=== PATIENT | male | born 1940 | race Caucasian/White ===

== ENCOUNTER → 2016-10-17 | Outpatient (CLI) | payer OTHER ==
[~2016-10-17] MED LIST: ASPI81TA82 PO; ATOR40TA PO; CARV6.252 PO; CO Q100C9 PO; FENO43CA PO; HYZA50TA2 PO; PLAV75TA PO; PROT40TA PO; TAB-TAB PO
--- NOTE | 2016-10-21 12:49 | RSPPFT ---
DATE OF PROCEDURE: 10/17/16 COMMENTS: VOLUMES DYNAMIC: FVC and FEV1 normal. STATIC: TLC, VTG and RV normal. FLOWS: FEV1% mildly reduced; FEF 25-75 moderately reduced. DIFFUSION: Severely reduced. FLOW VOLUME LOOP: Terminal airflow obstruction. IMPRESSION: Mild obstructive ventilatory defect with no significant hyperinflation but with a severe reduction in diffusion. Airways resistance is normal. There is minimal change post-bromnchodilator.
== END ==
LOC: HRSP 10:26
PROVIDERS: ATTEND Internal Medicine
DX: J44.9 Chronic obstructive pulmonary disease, unspecified (principal)
CPT/HCPCS: 94060; 94620; 94726; 94729

== ENCOUNTER 2017-04-05 06:34 | Day surgery (SDC) | payer OTHER ==
[~2017-04-05] VITALS: Ht 175.3 cm; Wt 93.2 kg
[2017-04-05] MEDS ORDERED: SODIUM CHLOR 0.9% 1000 ML INJ 1,000 ML IV SCH (07:00)
[2017-04-05 07:05] VITALS: BP 155/86; PULSE 71; RESP 20; TEMP 98.4; O2SAT 94
[2017-04-05] MEDS ORDERED: ASPI81CH37 PO (07:44)
[2017-04-05] MEDS ORDERED: ATOR10TA15 PO (07:45)
[2017-04-05] MEDS ORDERED: AMLO10TA2 PO (07:46)
[2017-04-05] MEDS ORDERED: CARV12.52 PO (07:48)
[2017-04-05] MEDS ORDERED: MIDAZOLAM HCL 2 MG/2 ML VIAL ONE (07:48)
[2017-04-05] MEDS ORDERED: PLAV75TA29 PO (07:49)
[2017-04-05] MEDS ORDERED: LOSA100T3 PO (07:50)
[2017-04-05] MEDS ORDERED: FENO43CA PO (07:52)
[2017-04-05] MEDS ORDERED: LIDOCAINE HCL 1% 20 ML VIAL ONE (07:52)
[2017-04-05] MEDS ORDERED: SODIUM BICARBONATE 8.4% INJ 50 ML ONE (07:52)
[2017-04-05] MEDS ORDERED: UBID200C3 PO (07:53)
[2017-04-05] MEDS ORDERED: PANT40TA3 PO (07:54)
[2017-04-05] MEDS ORDERED: MULTTAB67 PO (07:55)
[2017-04-05] MEDS ORDERED: oxyCODONE/ACETAMINOPHEN 5 MG/325 MG TAB PO PRN (09:00)
[2017-04-05 09:13] VITALS: BP 158/75; PULSE 69; RESP 17; TEMP 98.7; O2SAT 94
--- NOTE | 2017-04-05 09:21 | RADRPT ---
EXAM DATE/TIME: 04/05/2017 09:07 [facility] COMPARISON: No previous studies available for comparison. INDICATIONS : Post lung bx MEDICAL HISTORY : None. SURGICAL HISTORY : None. ENCOUNTER: Initial ACUITY: 1 day PAIN SCORE: 0/10 LOCATION: Bilateral chest FINDINGS: There is no evidence of pneumothorax status post left lung biopsy. Left hilar mass and left upper lob e mass are unchanged. Scattered increased interstitial markings are noted consistent with COPD. The h eart is unremarkable. Degenerative changes are noted throughout the thoracic spine. CONCLUSION: No evidence of pneumothorax status post left lung biopsy. Rafiq Hernandez MD on April 05, 2017 at 9:17 Board Certified Radiologist. This report was verified electronically.
[2017-04-05 09:43] VITALS: BP 145/74; PULSE 57; RESP 18; O2SAT 95
[2017-04-05 10:13] VITALS: BP 161/72; PULSE 63; RESP 18; O2SAT 96
[2017-04-05 10:43] VITALS: BP 144/82; PULSE 82; RESP 17; O2SAT 97
[2017-04-05 11:13] VITALS: BP 143/68; PULSE 68; RESP 18
--- NOTE | 2017-04-05 11:32 | RADRPT ---
EXAM DATE/TIME: 04/05/2017 11:02 [facility] COMPARISON: CHEST EXPIRATION ONLY, April 05, 2017, 9:07. INDICATIONS : Pneumothorax. MEDICAL HISTORY : Chronic obstructive pulmonary disease. Pulmonary fibrosis SURGICAL HISTORY : None. ENCOUNTER: Subsequent ACUITY: 1 day PAIN SCORE: 0/10 LOCATION: Bilateral chest FINDINGS: There is no evidence of pneumothorax status post left lung biopsy. Left hilar mass and left upper lob e mass are unchanged. Scattered increased interstitial markings are noted consistent with COPD. The h eart is unremarkable. Degenerative changes are noted throughout the thoracic spine. CONCLUSION: No evidence of pneumothorax. Gus Carmona MD on April 05, 2017 at 11:30 Board Certified Radiologist. This report was verified electronically.
--- NOTE | 2017-04-05 13:14 | RADRPT ---
EXAM DATE/TIME: 04/05/2017 08:21 [facility] COMPARISON: No previous studies available for comparison. INDICATIONS : Left lung mass. SEDATION TIME: 30 minutes BIOPSY SITE: Left lung MEDICATION(S): 1.) 2 mg midazolam (Versed) IV 2.) 100 mcg fentanyl (Sublimaze) IV DEVICE(S): 1.) 20 gauge Temno core biopsy needle 11cm MEDICAL HISTORY : Hypertension. Chronic obstructive pulmonary disease. Cardiovascular disease. SURGICAL HISTORY : None. ENCOUNTER: Initial ACUITY: 1 day PAIN SCORE: 0/10 LOCATION: Left chest A total of two core specimen(s) were obtained and sent to the laboratory for pathologic evaluation. PROCEDURE: 1. CT guided lung biopsy. 2. Conscious sedation with continuous EKG and oximetry monitoring. Prior to the procedure informed consent was obtained. Any appropriate prior imaging studies were rev iewed. Using automated exposure control and adjustment of the mA and/or kV according to patient size, radiation dose was kept as low as reasonably achievable to obtain optimal diagnostic quality images. DICOM format image data is available electronically for review and comparison. The site was prepped in a sterile fashion. Full sterile technique was used, including cap, mask, roman rile gloves and gown and a large sterile sheet. Hand hygiene and 2% chlorhexidine and/or betadine/al cohol prep was utilized per protocol for cutaneous antisepsis. The skin and subcutaneous tissues wer e infiltrated with local anesthetic solution. With CT guidance the previously identified target was localized. Biopsy was performed using the presc ribed needle as above. Adequate hemostasis was obtained with compression at the puncture site. Follow-up CT scan reveals no pneumothorax. Conscious sedation was performed with the prescribed dosages and duration as above in the presence of an independent trained radiology nurse to assist in the monitoring of the patient. EKG and oximetry remained stable throughout the procedure. The patient tolerated the procedure well and there were no complications. The patient was sent to Radiology Outpatient Unit in stable condition. CONCLUSION: Uncomplicated CT guided biopsy. Rafiq Hernandez MD on April 05, 2017 at 13:11 Board Certified Radiologist. This report was verified electronically.
[2017-05-22] MEDS ORDERED: ZOLP10TA3 PO (10:27)
[2017-05-22] MEDS ORDERED: CHOL20005 PO (10:27)
[2017-05-22] MEDS ORDERED: FENO54TA PO (10:27)
[2017-05-22] MEDS ORDERED: ATOR1TAB18 PO (10:27)
[2017-05-22] MEDS ORDERED: ACETCAP PO (10:27)
[2017-05-22] MEDS ORDERED: FERR200T PO (10:27)
[2017-05-22] MEDS ORDERED: CO Q200C PO (10:27)
== END 2017-04-05 12:00 | disposition home or self-care (01) ==
LOC: HRIP 06:34 → HRAD 06:34
PROVIDERS: ATTEND Family Medicine
DX: R91.8 Other nonspecific abnormal finding of lung field (principal); I10 Essential (primary) hypertension; J44.9 Chronic obstructive pulmonary disease, unspecified; I25.10 Atherosclerotic heart disease of native coronary artery without angina pectoris; I73.9 Peripheral vascular disease, unspecified; E78.00 Pure hypercholesterolemia, unspecified; Z79.01 Long term (current) use of anticoagulants; Z79.82 Long term (current) use of aspirin; Z79.899 Other long term (current) drug therapy
CPT/HCPCS: 32405; 71010; 77012; 88305; J2250; J3010; J7030

== ENCOUNTER 2017-05-23 07:30 | Inpatient (IN) | payer OTHER, MEDICARE ==
[~2017-05-23] VITALS: Ht 177.8 cm; Wt 94.0 kg
[~2017-05-23 07:30] MED LIST changes: +ACETCAP PO; +AMLO10TA2 PO; +ASPI81CH37 PO; -ASPI81TA82 PO; +ATOR1TAB18 PO; -ATOR40TA PO; +CARV12.52 PO; -CARV6.252 PO; +CHOL20005 PO; -CO Q100C9 PO; +CO Q200C PO; -FENO43CA PO; +FENO54TA PO; +FERR200T PO; -HYZA50TA2 PO; +LOSA100T3 PO; +MULTTAB67 PO; +PANT40TA3 PO; -PLAV75TA PO; +PLAV75TA29 PO; -PROT40TA PO; -TAB-TAB PO; +ZOLP10TA3 PO
[2017-05-30] VITALS (8 sets, daily range): BP systolic 113–151; BP diastolic 56–70; PULSE 77–92; RESP 18; TEMP 97.4–99.7; O2SAT 92–96
[2017-05-30] MEDS ORDERED: CHLORHEXIDINE GLUCONATE 2 % 1 PACK (2 CLOTHS) TOPICAL PRN ×2 (11:30)
[2017-05-30] MEDS ORDERED: SODIUM CHLORID 0.9% 500 ML IV PRN ×2 (11:30)
[2017-05-30] MEDS ORDERED: LACTATED RINGER'S 1000 ML IV PRN ×2 (11:30)
[2017-05-30] MEDS ORDERED: POVIDONE IODINE 5% (ANTISEPSIS KIT) 4 APPLICATIONS EACH NARE PRN ×2 (11:30)
[2017-05-30] MEDS ORDERED: METOPROLOL TARTRATE 25 MG TAB PO PRN ×2 (11:30)
[2017-05-30] MEDS ORDERED: INSULIN HUMAN REGULAR 1,000 UNITS/10 ML VIAL SQ PRN ×2 (11:30)
[2017-05-30 11:48] LABS: PROTHROMBIN TIME - PATIENT 11.3 SEC (9.8-11.6)
[2017-05-30] MEDS ORDERED: BUPIVACAINE HCL PF 0.5% 30 ML VIAL ONE ×6 (13:17→15:29)
[2017-05-30] MEDS ORDERED: HEPARIN SODIUM - SQ 10,000 UNITS/ML VIAL ONE ×2 (13:17)
[2017-05-30] MEDS ORDERED: ceFAZolin 2 GM PREMIX 50 ML ONE ×2 (13:18)
[2017-05-30] MEDS ORDERED: NON-FORMULARY DRUG (Losartan-Hydrochlorothiazide 1 TAB) PO SCH ×2 (16:33)
[2017-05-30] MEDS ORDERED: FERROUS SULFATE 325 MG (65 MG ELEMENTAL IRON) TAB PO SCH ×2 (16:33)
[2017-05-30] MEDS ORDERED: PANTOPRAZOLE SOD 40 MG DELAYED RELEASE TAB PO SCH ×2 (16:33)
[2017-05-30] MEDS ORDERED: COENZYME Q10 PO SCH ×2 (16:33)
[2017-05-30] MEDS ORDERED: ACETYLCYSTEINE PO SCH ×2 (16:33)
[2017-05-30] MEDS ORDERED: NON-FORMULARY DRUG (Fenofibrate 54 MG) PO SCH ×2 (16:33)
[2017-05-30] MEDS ORDERED: NON-FORMULARY DRUG (Multiple Vitamin 1 TAB) PO SCH ×2 (16:33)
--- NOTE | 2017-05-30 16:43 | PD.OP ---
cc: Josesito Fisher MD; Enid Zepeda MD; Ben Gaines MD Operative Report Date of Surgery: May 30, 2017 Preoperative Diagnosis: (1) Lung mass Postoperative Diagnosis: Lung cancer Procedure: Left thoracotomy for excisional biopsy left lung mass, incisional biopsy AP window node, On-Q pump placement Anesthesia: Dr. Wells Surgeon: Enid Zepeda Customer Relationship Specialist(s): OG Rinaldi Operation and Findings: After adequate general anesthesia the patient was placed in the right lateral decubitus position and the left chest was prepped and draped in usual manner. A small lateral thoracotomy incision was performed and electrocautery was used to obtain hemostasis and carry the dissection down through the latissimus dorsi. The serratus anterior was retracted anteriorly and the 5th intercostal space was entered under direct vision and selective single lung ventilation. A soft tissue retractor was placed after shingling the 5th rib posteriorly. Exploration of the left hemithorax was significant for a ~3x2 cm nodule in the left upper lobe. This nodule was excised using several Endo-ERAN endoscopic staple loads. 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 The AP window was then explored to due to an abnormal finding on the CT and PET scans. A firm ~3 cm white, fixed mass was found invading the left hilum as well as the left pulmonary artery and aorta. Incisional biopsy of this mass was performed and frozen section revealed metastatic tumor as well. A 32 Setswana chest tube was then placed through a separate stab incision anteriorly and this was secured with 0 silk suture. An On Q pump was placed for postoperative analgesia. The lung was ventilated and no significant air leaks were found. The wound was closed in layers approximating the ribs initially with a 2. Vicryl [id number] sutures. The latissimus dorsi was reapproximated using a running 0 Vicryl suture. The subcutaneous tissues approximated running 2-0 Vicryl suture and the skin was approximated using running 4-0 Monocryl subcuticular stitch. All sponges history counts were correct at the close the procedure and the patient was transferred to the PACU for recovery purposes. Enid Zepeda MD May 30, 2017 16:43
[2017-05-30] MEDS ORDERED: ACETAMINOPHEN 325 MG TAB PO PRN ×2 (16:45)
[2017-05-30] MEDS ORDERED: Post-op Orders (for Pharmacy) MISC OTHER ONE ×2 (16:45)
[2017-05-30] MEDS ORDERED: MORPHINE SULFATE 30 MG/30 ML PCA IV SCH ×2 (16:45)
[2017-05-30] MEDS ORDERED: SODIUM CHLORIDE 0.9% FLUSH 5 ML FLUSH IV FLUSH PRN ×2 (16:45)
[2017-05-30] MEDS ORDERED: NALOXONE HCL 0.4 MG/ML AMP IV PUSH PRN ×2 (16:45)
[2017-05-30] MEDS ORDERED: MAGNESIUM HYDROXIDE SUSP 30 ML CUP PO PRN ×2 (16:45)
[2017-05-30] MEDS ORDERED: RESP: ALBUTEROL 2.5 MG/3 ML NEB (PRN) NEB ×2 (16:45)
[2017-05-30] MEDS ORDERED: ONDANSETRON HCL 4 MG/2 ML VIAL IV PUSH PRN ×2 (16:45)
[2017-05-30] MEDS ORDERED: *morphine SULFATE 8 MG/ML PERIprocedure ONLY ONE ×4 (17:24→17:31)
--- NOTE | 2017-05-30 17:52 | EKG ---
Date Performed: 05/30/2017 Time Performed: 10:43:54 PTAGE: 76 years EKG: Sinus rhythm MARKED LEFT AXIS DEVIATION INCOMPLETE RIGHT BUNDLE BRANCH BLOCK POSSIBLE LEFT VENTRICULAR HYPERTROPH Y ABNORMAL ECG NO PREVIOUS TRACING DOCTOR: Amy Infante Interpretating Date/Time 05/30/2017 17:48:55
--- NOTE | 2017-05-30 17:57 | RADRPT ---
EXAM DATE/TIME: 05/30/2017 17:33 [facility] COMPARISON: No previous studies available for comparison. INDICATIONS : Post Thoracotomy. MEDICAL HISTORY : Chronic obstructive pulmonary disease. Pulmonary fibrosis. SURGICAL HISTORY : None. ENCOUNTER: Initial ACUITY: 1 day PAIN SCORE: 0/10 LOCATION: Bilateral chest FINDINGS: The cardiac silhouette is enlarged in transverse diameter. Left chest tube is in place with small lef t apical pneumothorax and subcutaneous emphysema. There are no signs of tension. There is patchy alve olar disease bilaterally compatible with edema or pneumonia. There is prominence of the aortic knob i s with calcification characteristic of atherosclerotic vascular disease. CONCLUSION: 1. Postsurgical changes as above. Bud Daly MD on May 30, 2017 at 17:54 Board Certified Radiologist. This report was verified electronically.
[2017-05-30] MEDS: SODIUM CHLOR 0.9% 1000 ML INJ 1,000 ML IV SCH ×2 (18:00)
[2017-05-30] MEDS ORDERED: DO NOT ADM ANY ANTICOAGULANT DRUGS PRN ×2 (18:15)
[2017-05-30] MEDS: CHOLECALCIFEROL (VIT D3) 1000 UNIT TAB PO SCH ×2 (19:29)
[2017-05-30] MEDS: ASPIRIN 81 MG CHEW TAB PO SCH ×4 (19:29→21:00)
[2017-05-30] MEDS: CARVEDILOL 12.5 MG TAB PO SCH ×4 (19:29→21:00)
[2017-05-30] MEDS ORDERED: ACETYLCYSTEINE 600 MG PO SCH ×2 (21:00)
[2017-05-30] MEDS: SODIUM CHLORIDE 0.9% FLUSH 5 ML FLUSH IV FLUSH SCH ×2 (21:00)
[2017-05-30] MEDS: ATORVASTATIN 80 MG TAB PO SCH ×2 (21:30)
[2017-05-30] MEDS: PANTOPRAZOLE SOD 40 MG DELAYED RELEASE TAB PO SCH ×2 (21:30)
[2017-05-30] MEDS: DOCUSATE CALCIUM 240 MG CAP PO SCH ×2 (21:30)
[2017-05-30] MEDS: PCA - TOTAL MG MORPHINE DELIVERED PER SHIFT SCH ×2 (21:31)
[2017-05-31] VITALS (28 sets, daily range): BP systolic 125–166; BP diastolic 58–82; PULSE 79–98; RESP 18; TEMP 97.9–100.6; O2SAT 91–94
[2017-05-31] MEDS: RESP: ALBUTEROL 2.5 MG/3 ML NEB (SCH) NEB ×8 (03:53→22:09)
[2017-05-31 04:42] LABS: AUTOMATED NEUTROPHIL # 9.3 TH/MM3 (1.8-7.7); BASOPHIL % 0.3 % (0.0-2.0); EOSINOPHIL # 0.1 TH/MM3 (0-0.4); EOSINOPHIL % 0.7 % (0.0-4.0); LYMPHOCYTE # 0.7 TH/MM3 (1.0-4.8); MEAN CELL VOLUME 92.5 FL (80.0-100.0); MEAN CORPUSCULAR HEMOGLOBIN 30.8 PG (27.0-34.0); MEAN CORPUSCULAR HGB CONC 33.3 % (32.0-36.0); MONO % 8.1 % (0.0-8.0); MONOCYTE # 0.9 TH/MM3 (0-0.9); NEUT % 84.9 % (16.0-70.0); PLATELET COUNT 266 TH/MM3 (150-450); RED BLOOD COUNT 3.56 MIL/MM3 (4.50-5.90); RED CELL DISTRIBUTION WIDTH 13.9 % (11.6-17.2)
[2017-05-31 05:13] LABS: BICARBONATE 22.9 MEQ/L (21.0-32.0); CALCIUM 8.6 MG/DL (8.5-10.1); CREATININE 1.63 MG/DL (0.60-1.30)
[2017-05-31] MEDS: PCA - TOTAL MG MORPHINE DELIVERED PER SHIFT SCH ×6 (06:00→21:50)
[2017-05-31] MEDS: FERROUS SULFATE 300 MG /5ML UDC PO SCH ×2 (08:48)
[2017-05-31] MEDS: MULTIVITAMIN TAB PO SCH ×2 (08:48)
[2017-05-31] MEDS: CARVEDILOL 12.5 MG TAB PO SCH ×4 (08:49→21:07)
[2017-05-31] MEDS: CHOLECALCIFEROL (VIT D3) 1000 UNIT TAB PO SCH ×2 (08:49)
[2017-05-31] MEDS: FENOFIBRATE 48 MG TAB PO SCH ×2 (08:49)
[2017-05-31] MEDS: LOSARTAN 50 MG TAB PO SCH ×2 (08:49)
[2017-05-31] MEDS: SODIUM CHLORIDE 0.9% FLUSH 5 ML FLUSH IV FLUSH SCH ×4 (08:53→21:00)
[2017-05-31] MEDS ORDERED: HYDROCHLOROTHIAZIDE 12.5 MG CAP PO SCH ×2 (09:00)
--- NOTE | 2017-05-31 10:33 | RADRPT ---
EXAM DATE/TIME: 05/31/2017 08:47 [facility] COMPARISON: CHEST SINGLE AP, May 30, 2017, 17:33. INDICATIONS : Pleural Effusion. MEDICAL HISTORY : Hypertension. Chronic obstructive pulmonary disease. Cardiovascular disease SURGICAL HISTORY : None. ENCOUNTER: Subsequent ACUITY: 2 days PAIN SCORE: 0/10 LOCATION: Bilateral chest FINDINGS: A left-sided chest tube is stable. No pneumothorax is noted. Minimal subcutaneous emphysema is note d within the left chest wall and is improved compared to the previous examination. The right lung is clear. The heart is stable. Focal patchiness is noted within the left upper lung field. CONCLUSION: 1. No pneumothorax. 2. Persistent patchiness within the left upper lung field. 3. Small amount of subcutaneous emphysema within the left chest wall which has improved compared to previous examination. Rafiq Hernandez MD on May 31, 2017 at 10:22 Board Certified Radiologist. This report was verified electronically.
--- NOTE | 2017-05-31 11:02 | PD.CAR.PN ---
CVT Progress Note CVT: POD #: 1 Subjective/Hospital Course: Doing well s/p left thoracotomy. Objective: Vital Signs Date Time Temp Pulse Resp B/P (MAP) Pulse Ox O2 Delivery O2 Flow Rate FiO2 05/31/17 10:00 84 05/31/17 09:48 94 Nasal Cannula 2.00 05/31/17 09:00 94 05/31/17 08:00 86 05/31/17 07:00 97.9 79 18 155/66 (95) 94 05/31/17 07:00 79 05/31/17 07:00 94 Nasal Cannula 2.00 05/31/17 06:00 80 05/31/17 06:00 18 05/31/17 05:00 87 05/31/17 04:00 79 05/31/17 03:40 93 Bi-Pap 3.00 05/31/17 03:40 98.1 79 18 125/58 (80) 93 05/31/17 03:00 83 05/31/17 02:00 83 05/31/17 01:00 84 05/31/17 00:00 84 05/30/17 23:35 93 Bi-Pap 3.00 05/30/17 23:35 99.7 88 18 113/56 (75) 93 05/30/17 23:00 88 05/30/17 22:30 Bi-Pap 2.00 05/30/17 22:00 84 05/30/17 21:31 18 05/30/17 21:00 88 05/30/17 20:45 97.4 90 18 148/63 (91) 96 05/30/17 20:45 96 Nasal Cannula 2.00 05/30/17 20:00 92 05/30/17 19:00 87 05/30/17 18:36 97.5 77 18 151/70 (97) 92 05/30/17 18:15 97.5 68 15 156/75 (102) 95 Nasal Cannula 3 05/30/17 18:03 15 05/30/17 18:00 67 15 155/70 (98) 94 Nasal Cannula 3 05/30/17 17:58 15 05/30/17 17:45 69 15 160/72 (101) 93 Nasal Cannula 3 05/30/17 17:36 15 05/30/17 17:30 66 15 157/70 (99) 100 Nasal Cannula 3 05/30/17 17:29 15 05/30/17 17:15 97.7 65 14 147/68 (94) 99 Simple Mask 8 Labs: Laboratory Tests Test 05/31/17 04:19 White Blood Count 11.0 TH/MM3 (4.0-11.0) Red Blood Count 3.56 MIL/MM3 (4.50-5.90) Hemoglobin 11.0 GM/DL (13.0-17.0) Hematocrit 33.0 % (39.0-51.0) Mean Corpuscular Volume 92.5 FL (80.0-100.0) Mean Corpuscular Hemoglobin 30.8 PG (27.0-34.0) Mean Corpuscular Hemoglobin Concent 33.3 % (32.0-36.0) Red Cell Distribution Width 13.9 % (11.6-17.2) Platelet Count 266 TH/MM3 (150-450) Mean Platelet Volume 7.0 FL (7.0-11.0) Neutrophils (%) (Auto) 84.9 % (16.0-70.0) Lymphocytes (%) (Auto) 6.0 % (9.0-44.0) Monocytes (%) (Auto) 8.1 % (0.0-8.0) Eosinophils (%) (Auto) 0.7 % (0.0-4.0) Basophils (%) (Auto) 0.3 % (0.0-2.0) Neutrophils # (Auto) 9.3 TH/MM3 (1.8-7.7) Lymphocytes # (Auto) 0.7 TH/MM3 (1.0-4.8) Monocytes # (Auto) 0.9 TH/MM3 (0-0.9) Eosinophils # (Auto) 0.1 TH/MM3 (0-0.4) Basophils # (Auto) 0.0 TH/MM3 (0-0.2) CBC Comment DIFF FINAL Differential Comment Blood Urea Nitrogen 23 MG/DL (7-18) Creatinine 1.63 MG/DL (0.60-1.30) Random Glucose 133 MG/DL (74-106) Calcium Level 8.6 MG/DL (8.5-10.1) Sodium Level 137 MEQ/L (136-145) Potassium Level 4.0 MEQ/L (3.5-5.1) Chloride Level 103 MEQ/L (98-107) Carbon Dioxide Level 22.9 MEQ/L (21.0-32.0) Anion Gap 11 MEQ/L (5-15) Estimat Glomerular Filtration Rate 42 ML/MIN (>89) Result Diagram: 05/31/17 0419 05/31/17 0419 Imaging: Last Impressions Chest X-Ray 05/30/17 0000 Signed Impressions: Service Date/Time: Tuesday, May 30, 2017 17:33 - CONCLUSION: 1. Postsurgical changes as above. Bud Daly MD Cardiovascular: RRR Telemetry: NSR Pulmonary: CTA GI/: NABS, NT Incision: dry an dintact CT: 200ml since OR, no air leak Plan: Hudson replaced secondary to inability to void Encourage ambulation Chest tube to water seal Dr. Fisher to see from Oncology Enid Zepeda MD May 31, 2017 11:02
[2017-05-31] MEDS: ZOLPIDEM TARTRATE 10 MG TAB PO PRN ×2 (21:07)
[2017-05-31] MEDS: SODIUM CHLOR 0.9% 1000 ML INJ 1,000 ML IV SCH ×2 (21:07)
[2017-05-31] MEDS: ASPIRIN 81 MG CHEW TAB PO SCH ×2 (21:07)
[2017-05-31] MEDS: PANTOPRAZOLE SOD 40 MG DELAYED RELEASE TAB PO SCH ×2 (21:07)
[2017-05-31] MEDS: DOCUSATE CALCIUM 240 MG CAP PO SCH ×2 (21:07)
[2017-05-31] MEDS: ATORVASTATIN 80 MG TAB PO SCH ×2 (21:07)
[2017-06-01] VITALS (30 sets, daily range): BP systolic 127–142; BP diastolic 61–67; PULSE 75–108; RESP 18–22; TEMP 97.6–99.3; O2SAT 92–96
[2017-06-01] MEDS: RESP: ALBUTEROL 2.5 MG/3 ML NEB (SCH) NEB ×8 (03:20→20:35)
[2017-06-01] MEDS ORDERED: CORE25TA PO ×2 (05:05)
[2017-06-01] MEDS: PCA - TOTAL MG MORPHINE DELIVERED PER SHIFT SCH ×2 (05:37)
--- NOTE | 2017-06-01 07:39 | RADRPT ---
EXAM DATE/TIME: 06/01/2017 07:18 [facility] COMPARISON: CHEST SINGLE AP, May 31, 2017, 8:47. INDICATIONS : Chest pain MEDICAL HISTORY : Hypertension. Chronic obstructive pulmonary disease. Cardiovascular disease SURGICAL HISTORY : None. ENCOUNTER: Subsequent ACUITY: 3 days PAIN SCORE: 5/10 LOCATION: chest FINDINGS: Left thoracostomy tube is in stable position. There is no evidence of pneumothorax. Focal parenchymal opacity in the left upper lobe is unchanged. There is mild haziness in the left base suggesting poss ible small effusion and airspace disease. Right lung remains relatively clear. Heart and mediastinal structures are stable. CONCLUSION: 1. No evidence of pneumothorax. 2. Left lung opacity and basilar airspace disease without significant change. 3. Otherwise stable chest Colby Winkler MD on June 01, 2017 at 7:36 Board Certified Radiologist. This report was verified electronically.
--- NOTE | 2017-06-01 08:09 | PD.CAR.PN ---
CVT Progress Note CVT: POD #: 2 Subjective/Hospital Course: Doing well s/p left thoracotomy. 06/01/17 No complaints. Objective: Vital Signs Date Time Temp Pulse Resp B/P (MAP) Pulse Ox O2 Delivery O2 Flow Rate FiO2 06/01/17 06:00 91 06/01/17 05:47 94 Nasal Cannula 3.00 06/01/17 05:37 20 06/01/17 05:00 107 06/01/17 04:00 85 06/01/17 03:45 99.3 92 18 142/67 (92) 93 06/01/17 03:45 93 Bi-Pap 4.00 06/01/17 03:00 85 06/01/17 02:00 83 06/01/17 01:00 84 06/01/17 00:00 76 05/31/17 23:50 Bi-Pap 4.00 05/31/17 23:45 91 Bi-Pap 3.00 05/31/17 23:45 100.6 87 18 145/67 (93) 91 05/31/17 23:00 79 05/31/17 22:00 88 05/31/17 21:50 16 05/31/17 21:45 Bi-Pap 3.00 05/31/17 21:00 92 05/31/17 20:30 94 Nasal Cannula 2.00 05/31/17 20:30 98.1 86 18 146/67 (93) 94 05/31/17 20:00 88 05/31/17 19:00 92 05/31/17 18:00 92 05/31/17 17:00 89 05/31/17 16:00 93 05/31/17 15:00 98.5 91 18 145/65 (91) 94 05/31/17 15:00 92 05/31/17 15:00 93 Nasal Cannula 3.00 05/31/17 14:00 97 05/31/17 14:00 18 05/31/17 13:00 98 05/31/17 12:00 92 05/31/17 11:00 92 1.00 05/31/17 11:00 87 05/31/17 11:00 98.8 96 18 166/82 (110) 05/31/17 10:00 84 05/31/17 09:48 94 Nasal Cannula 2.00 05/31/17 09:00 94 Result Diagram: 05/31/17 0419 05/31/17 0419 Cardiovascular: RRR Telemetry: NSR Pulmonary: CTA GI/: NABS, NT Incision: dry and intact CT: 120ml/12hrs, no air leak Plan: Remove Hudson Start flomax/hytrin for BPH Encourage ambulation stop HCTZ Oncology consult pending Home tomorrow Enid Zepeda MD Jun 01, 2017 08:09
--- NOTE | 2017-06-01 08:11 | HHI.FF ---
Face to Face Verification Diagnosis: (1) Lung cancer Physical Therapy Order: Evaluate and Treat Home Health Nursing Order: Medical education Signs/symptoms of disease process Wound care and dressing changes I have seen patient Moreno Mayorga on 06/01/17. My clinical findings support the need for the requested home health care services because: Deconditioned w/ increased weakness Limited ability to care for self I certify that my clinical findings support that this patient is homebound because: Post-op weakness Enid Zepeda MD Jun 01, 2017 08:11
[2017-06-01] MEDS: FERROUS SULFATE 300 MG /5ML UDC PO SCH ×2 (08:50)
[2017-06-01] MEDS: MULTIVITAMIN TAB PO SCH ×2 (08:51)
[2017-06-01] MEDS: TAMSULOSIN HCL 0.4 MG CAP PO SCH ×2 (08:51)
[2017-06-01] MEDS: LOSARTAN 50 MG TAB PO SCH ×2 (08:51)
[2017-06-01] MEDS: FENOFIBRATE 48 MG TAB PO SCH ×2 (08:51)
[2017-06-01] MEDS: CARVEDILOL 12.5 MG TAB PO SCH ×4 (08:51→20:54)
[2017-06-01] MEDS: SODIUM CHLORIDE 0.9% FLUSH 5 ML FLUSH IV FLUSH SCH ×4 (08:52→20:53)
[2017-06-01] MEDS: CHOLECALCIFEROL (VIT D3) 1000 UNIT TAB PO SCH ×2 (08:52)
--- NOTE | 2017-06-01 10:10 | MB ---
cc: JAMIE MORTON MD,DO Charis HALL MD, R. 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 OPERATIVE/RADIOGRAPHIC STAGE T2 N2 M0; at least stage IIIA. CHIEF COMPLAINT Mr. Mayorga reports having pain along the left side of his thorax related to his thoracotomy which was performed on 05/30/2017. He also reports cough and difficulty breathing with exertion. HISTORY OF PRESENT ILLNESS Mr. Mayorga is a very pleasant 76-year-old male who is originally from the [place], [place] area. 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 He reports smoking on average about a pack and a half a day for close to 40 years and he also reports extensive secondhand smoke exposure as well. 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 The patient reports having been found to have a mass on his lung earlier this summer. He underwent CT imaging followed by PET CT imaging over the course of the summer. In early March he underwent an image guided biopsy of a left upper lobe peripheral/lateral lung nodule/mass. Pathologic findings were nondiagnostic. The patient was noted on PET CT imaging to have a hypermetabolic mass involving the left upper lobe of the lung in the subpleural area associated with an AP window node/mass. There was no evidence of distal metastases. He was subsequently referred to thoracic surgery for open biopsy and potential resection. He was taken to the operating room on 05/30/2017 and a thoracotomy was performed. The primary tumor involving the left upper lobe was surgically resected. His AP window mass was explored and found to be locally advanced with adhesion to the aortic arch as well as direct invasion into the mediastinum. A biopsy of this was obtained and additional resection was not attempted. The oncology service has been asked to see him for postoperative management with what will consist of concurrent chemoradiotherapy. PAST MEDICAL HISTORY 1. Pulmonary fibrosis. 2. Personal history of tobaccoism with greater than 50 pack-year history of smoking. 3. Obesity. 4. Chronic kidney disease. 5. Borderline diabetes. 6. Peripheral arterial disease. 7. Hyperlipidemia. 8. Hypertension. 9. Benign prostatic hypertrophy. PAST SURGICAL HISTORY 1. Tonsillectomy at the age of 7. 2. Right femoral arterial bypass graft surgery. 3. Thoracotomy performed in late April. SOCIAL HISTORY The patient is , he lives at home with his of 54 years. They have two adult daughters who still live in [place]. The patient is retired from the [employer] business. FAMILY HISTORY Father at the age of 51 from myocardial infarction. Mother at the age 92. ALLERGIES NO KNOWN DRUG ALLERGIES. HEALTH MAINTENANCE He is up-to-date with colonoscopies with a most recent colonoscopy performed 2 years ago. MEDICATIONS Current inpatient medications: 1. Normal saline 30 cc/hour. 2. Tylenol 650 mg q.4 hours as needed for fever. 3. DuoNebs every 6 hours as needed. 4. Amlodipine 10 mg p.o. daily. 5. Aspirin 81 mg once a day. 6. Atorvastatin 80 mg p.o. q.h.s. 7. Coreg 12.5 mg p.o. b.i.d. 8. Vitamin D3 2000 units once daily. 9. Fenofibrate 48 mcg once a day. 10. Ferrous sulfate 185 mg p.o. daily. 11. Losartan 100 mg p.o. daily. 12. Morphine GLASS BREAKER pump. 13. Pantoprazole 40 mg p.o. q.h.s. 14. Terazosin 1 mg p.o. q.h.s. 15. Tamsulosin 0.4 mg once daily. 16. Ambien 10 mg p.o. q.h.s. REVIEW OF SYSTEMS 13-point review of systems were obtained, the following are the pertinent positives and negatives: CONSTITUTIONAL: The patient denies fevers, chills, night sweats. He denies weight loss and reports having good energy and good appetite. HEENT: Denies headaches, blurry vision, difficulty swallowing or soreness in the throat. RESPIRATORY: Reports exertional dyspnea, reports dry cough, denies hemoptysis. CARDIOVASCULAR: Denies angina-like chest pain, PND, orthopnea, lower extremity edema. He does report history of peripheral arterial disease. GI: Denies nausea, vomiting, diarrhea hematochezia, melena. : Denies dysuria, hematuria, urinary incontinence. 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 SKIN: No complaints. PHYSICAL EXAMINATION VITAL SIGNS: Temperature 98 degrees Fahrenheit, heart rate 97 beats per minute, respiratory rate 18, blood pressure 138/63, O2 sats 93% on 2 liters nasal cannula. GENERAL PHYSICAL APPEARANCE: Mr. Mayorga is an elderly male, he is tall and heavy-set, he is sitting up on a chair. He appears to be in no acute distress. He has a friendly demeanor. HEENT: Head atraumatic, normocephalic, conjunctivae a are not pale, sclerae are anicteric, EOMI, PERRLA. ORAL EXAM: No pharyngeal erythema. NECK: No palpable cervical or supraclavicular lymphadenopathy. He has prominent supraclavicular fat pads but no lymphadenopathy or masses identified. RESPIRATORY: Prolonged expiratory phase with good air movement over the upper mid and lower lung zones. CARDIOVASCULAR: Regular rate and rhythm, S1-S2. No obvious murmurs, rubs or gallops. ABDOMEN: Protuberant belly, soft and nontender, nondistended. No palpable organ enlargement specifically hepatosplenomegaly. LEFT CHEST: He has a chest tube in place and also has a catheter for medicine administration in the intercostal space. LOWER EXTREMITIES: No pretibial edema or calf tenderness. 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 SKIN: No abnormal lesions noted. LABORATORY FINDINGS Blood work dated 05/31/2017: WBC count 11, hemoglobin 11 gm/dl, hematocrit 33%, platelet count 266, absolute neutrophil count 9.3. Chemistries: Sodium 137, potassium 4, chloride 103, bicarb 22.9, BUN 23, creatinine 1.63, EGFR 42, random glucose 133, calcium 8.6. PATHOLOGY Final pathology is pending. Preliminary pathology report of frozen section from the left upper lung mass: Poorly differentiated non-small cell carcinoma most consistent with squamous cell carcinoma. ASSESSMENT 1. Mr. Mayorga is a very pleasant 76-year-old man with a recently diagnosed poorly differentiated non-small cell carcinoma of the lung. The primary tumor involved the left upper lobe of the lung and was a peripheral and lateral lesion, on PET CT scan the patient was noted to have hypermetabolism associated with this tumor with a hypermetabolic AP window node as well. There was no evidence of distal metastases. He was clinically staged as having T2 N2 M0 disease. The patient underwent surgical exploration with a thoracotomy performed on 05/30/2017. The primary tumor which was located in the left upper lobe lateral subpleural area was resected. The AP window mass was explored as well and this was found to be locally advanced and was noted to be infiltrating into the mediastinum. There was some concern about whether this individual had two separate lung primaries or if the AP window lesion represented a lymph node with extracapsular spread. At any rate from a radiographic and clinical standpoint I would stage him as having T2 N2 M0 disease at this point. He does have additional significant medical comorbid conditions including COPD, chronic renal insufficiency and peripheral arterial disease. He is a candidate for definitive concurrent chemoradiotherapy. I did talk to the patient about this and he is agreeable to proceed once he is recovered sufficiently from surgery. RECOMMENDATIONS 1. Poorly differentiated non-small cell carcinoma of the lung: Proceed with radiation oncology evaluation. Await recovery from surgery to initiate systemic therapy. I would like him to be restaged prior to initiating treatment because his PET CT imaging was performed in mid February of 2017. This will be done prior to initiating therapy. 2. Await final pathology. 3. I will be meeting with the patient periodically while he is in the hospital to answer any additional questions. MD HERNANDO Vann/ANI /9:20 AM /9:43 AM
[2017-06-01] MEDS: oxyCODONE/ACETAMINOPHEN 5 MG/325 MG TAB PO PRN ×2 (15:34)
[2017-06-01] MEDS: SODIUM CHLOR 0.9% 1000 ML INJ 1,000 ML IV SCH ×2 (18:00)
[2017-06-01] MEDS: PANTOPRAZOLE SOD 40 MG DELAYED RELEASE TAB PO SCH ×2 (20:53)
[2017-06-01] MEDS: DOCUSATE CALCIUM 240 MG CAP PO SCH ×2 (20:53)
[2017-06-01] MEDS: ASPIRIN 81 MG CHEW TAB PO SCH ×2 (20:54)
[2017-06-01] MEDS: ATORVASTATIN 80 MG TAB PO SCH ×2 (20:54)
[2017-06-01] MEDS: TERAZOSIN HCL 1 MG CAP PO SCH ×2 (20:54)
[2017-06-01] MEDS: ZOLPIDEM TARTRATE 10 MG TAB PO PRN ×2 (20:54)
[2017-06-02] VITALS (27 sets, daily range): BP systolic 133–169; BP diastolic 7–64; PULSE 74–106; RESP 16–20; TEMP 97.3–98.9; O2SAT 91–97
[2017-06-02] MEDS: RESP: ALBUTEROL 2.5 MG/3 ML NEB (SCH) NEB ×8 (03:34→22:02)
--- NOTE | 2017-06-02 08:33 | PD.CAR.PN ---
CVT Progress Note CVT: POD #: 3 Subjective/Hospital Course: Doing well s/p left thoracotomy. 06/01/17 No complaints. 06/02/17 chest tube drainage increased over the past 24 hrs. 240 ml / last 12 hrs, also continues on oxygen NC. Objective: Vital Signs Date Time Temp Pulse Resp B/P (MAP) Pulse Ox O2 Delivery O2 Flow Rate FiO2 06/02/17 06:00 85 06/02/17 05:00 74 06/02/17 04:00 79 06/02/17 03:00 82 06/02/17 03:00 97.3 84 20 134/63 (86) 94 06/02/17 03:00 94 4.00 06/02/17 02:00 80 06/02/17 01:00 84 06/02/17 00:00 83 06/01/17 23:00 84 06/01/17 23:00 98.1 84 18 133/61 (85) 93 06/01/17 23:00 93 4.00 06/01/17 22:00 75 06/01/17 21:00 90 06/01/17 20:00 98.3 79 18 139/64 (89) 93 06/01/17 20:00 93 Nasal Cannula 3.00 06/01/17 20:00 84 06/01/17 19:00 82 06/01/17 17:17 92 Nasal Cannula 3.00 06/01/17 17:10 84 06/01/17 16:06 108 06/01/17 15:21 97.6 90 22 134/65 (88) 92 06/01/17 15:21 93 Nasal Cannula 3.00 06/01/17 15:00 83 06/01/17 14:12 82 06/01/17 13:07 96 06/01/17 12:22 84 06/01/17 11:34 96 Nasal Cannula 2.00 06/01/17 11:34 98.1 84 18 127/62 (83) 96 06/01/17 11:00 81 06/01/17 10:15 87 06/01/17 09:00 96 06/01/17 08:48 93 Nasal Cannula 2.00 Result Diagram: 05/31/17 0419 05/31/17 0419 Cardiovascular: RRR Telemetry: NSR Pulmonary: CTA GI/: NABS, NT Incision: dry and intact CT: as above, appears somewhat chylous. Plan: Wean oxygen to room air Follow chest tubes to water seal another day CXR in AM Enid Zepeda MD Jun 02, 2017 08:33
[2017-06-02] MEDS: MULTIVITAMIN TAB PO SCH ×2 (08:39)
[2017-06-02] MEDS: TAMSULOSIN HCL 0.4 MG CAP PO SCH ×2 (08:39)
[2017-06-02] MEDS: FENOFIBRATE 48 MG TAB PO SCH ×2 (08:39)
[2017-06-02] MEDS: LOSARTAN 50 MG TAB PO SCH ×2 (08:40)
[2017-06-02] MEDS: CHOLECALCIFEROL (VIT D3) 1000 UNIT TAB PO SCH ×2 (08:41)
[2017-06-02] MEDS: FERROUS SULFATE 300 MG /5ML UDC PO SCH ×2 (08:41)
[2017-06-02] MEDS: SODIUM CHLORIDE 0.9% FLUSH 5 ML FLUSH IV FLUSH SCH ×4 (08:41→20:47)
[2017-06-02] MEDS: CARVEDILOL 12.5 MG TAB PO SCH ×4 (08:41→20:44)
[2017-06-02] MEDS: SODIUM CHLOR 0.9% 1000 ML INJ 1,000 ML IV SCH ×2 (17:58)
[2017-06-02] MEDS: DOCUSATE CALCIUM 240 MG CAP PO SCH ×2 (20:44)
[2017-06-02] MEDS: ATORVASTATIN 80 MG TAB PO SCH ×2 (20:44)
[2017-06-02] MEDS: ASPIRIN 81 MG CHEW TAB PO SCH ×2 (20:44)
[2017-06-02] MEDS: ZOLPIDEM TARTRATE 10 MG TAB PO PRN ×2 (20:44)
[2017-06-02] MEDS: TERAZOSIN HCL 1 MG CAP PO SCH ×2 (20:44)
[2017-06-02] MEDS: PANTOPRAZOLE SOD 40 MG DELAYED RELEASE TAB PO SCH ×2 (20:45)
[2017-06-03] VITALS (28 sets, daily range): BP systolic 132–168; BP diastolic 61–74; PULSE 69–100; RESP 16–20; TEMP 97–99; O2SAT 89–97
[2017-06-03] MEDS: oxyCODONE/ACETAMINOPHEN 5 MG/325 MG TAB PO PRN ×2 (01:16)
[2017-06-03] MEDS: RESP: ALBUTEROL 2.5 MG/3 ML NEB (SCH) NEB ×8 (03:54→21:28)
--- NOTE | 2017-06-03 05:41 | RADRPT ---
EXAM DATE/TIME: 06/03/2017 05:12 [facility] COMPARISON: CHEST SINGLE AP, June 01, 2017, 7:18. INDICATIONS : Shortness of breath, possible pulmonary disease. MEDICAL HISTORY : Hypertension. Chronic obstructive pulmonary disease. Cardiovascular disease. SURGICAL HISTORY : None. ENCOUNTER: Subsequent ACUITY: 4 - 6 days PAIN SCORE: 0/10 LOCATION: Bilateral chest FINDINGS: Single AP view of the chest. Left-sided chest tube remains in place. Left lung opacity with confluenc e in the lateral left upper lung zone unchanged. No evidence of pneumothorax. Subcutaneous emphysema noted on the left. Right lung clear. Cardiomediastinal silhouette unchanged. CONCLUSION: No significant interval change. No evidence of pneumothorax. Left lung opacity unchanged. Barrett Jovel MD on June 03, 2017 at 5:39 Board Certified Radiologist. This report was verified electronically.
[2017-06-03] MEDS: TAMSULOSIN HCL 0.4 MG CAP PO SCH ×2 (08:45)
[2017-06-03] MEDS: FERROUS SULFATE 300 MG /5ML UDC PO SCH ×2 (08:45)
[2017-06-03] MEDS: MULTIVITAMIN TAB PO SCH ×2 (08:45)
[2017-06-03] MEDS: CHOLECALCIFEROL (VIT D3) 1000 UNIT TAB PO SCH ×2 (08:45)
[2017-06-03] MEDS: FENOFIBRATE 48 MG TAB PO SCH ×2 (08:45)
[2017-06-03] MEDS: CARVEDILOL 12.5 MG TAB PO SCH ×4 (08:45→21:04)
[2017-06-03] MEDS: SODIUM CHLORIDE 0.9% FLUSH 5 ML FLUSH IV FLUSH SCH ×4 (08:46→21:05)
[2017-06-03] MEDS: LOSARTAN 50 MG TAB PO SCH ×2 (08:46)
--- NOTE | 2017-06-03 09:24 | PD.CAR.PN ---
CVT Progress Note Subjective/Hospital Course: Doing well s/p left thoracotomy. 06/01/17 No complaints. 06/02/17 chest tube drainage increased over the past 24 hrs. 240 ml / last 12 hrs, also continues on oxygen NC. 06/[address] continues to drain. Maintain to suction for now Objective: Vital Signs Date Time Temp Pulse Resp B/P (MAP) Pulse Ox O2 Delivery O2 Flow Rate FiO2 06/03/17 08:00 87 06/03/17 08:00 89 Room Air 06/03/17 08:00 97.8 87 20 134/61 (85) 89 06/03/17 06:00 84 06/03/17 05:00 70 06/03/17 04:00 69 06/03/17 03:42 98.2 81 16 134/63 (86) 96 06/03/17 03:31 96 06/03/17 03:00 75 06/03/17 02:00 80 06/03/17 01:08 98.2 93 16 150/71 (97) 93 06/03/17 01:00 86 06/03/17 00:00 84 06/02/17 23:16 97 Nasal Cannula 2.00 06/02/17 23:00 75 06/02/17 22:00 78 06/02/17 21:00 106 06/02/17 20:30 96 Nasal Cannula 2.00 06/02/17 20:30 98.0 94 16 169/53 (91) 97 06/02/17 20:00 90 06/02/17 19:00 90 06/02/17 18:00 98 06/02/17 17:00 93 06/02/17 16:00 98.9 86 16 147/7 (53) 96 06/02/17 16:00 92 Nasal Cannula 1.00 06/02/17 16:00 86 06/02/17 15:26 91 Nasal Cannula 3.00 06/02/17 15:00 86 06/02/17 14:00 84 06/02/17 13:00 84 06/02/17 12:00 84 06/02/17 11:00 98.0 90 16 133/62 (85) 94 06/02/17 11:00 90 06/02/17 11:00 92 Nasal Cannula 1.00 06/02/17 10:00 86 Result Diagram: 05/31/17 0419 05/31/17 0419 Everett Sharpe MD Jun 03, 2017 09:24
[2017-06-03] MEDS: SODIUM CHLOR 0.9% 1000 ML INJ 1,000 ML IV SCH ×2 (16:25)
[2017-06-03] MEDS: DOCUSATE CALCIUM 240 MG CAP PO SCH ×2 (21:00)
[2017-06-03] MEDS: ZOLPIDEM TARTRATE 10 MG TAB PO PRN ×2 (21:03)
[2017-06-03] MEDS: ATORVASTATIN 80 MG TAB PO SCH ×2 (21:04)
[2017-06-03] MEDS: TERAZOSIN HCL 1 MG CAP PO SCH ×2 (21:04)
[2017-06-03] MEDS: ASPIRIN 81 MG CHEW TAB PO SCH ×2 (21:04)
[2017-06-03] MEDS: PANTOPRAZOLE SOD 40 MG DELAYED RELEASE TAB PO SCH ×2 (21:04)
[2017-06-04] VITALS (25 sets, daily range): BP systolic 140–169; BP diastolic 68–77; PULSE 68–100; RESP 16–20; TEMP 98–98.7; O2SAT 92–95
--- NOTE | 2017-06-04 08:56 | PD.CAR.PN ---
CVT Progress Note Subjective/Hospital Course: Doing well s/p left thoracotomy. 06/01/17 No complaints. 06/02/17 chest tube drainage increased over the past 24 hrs. 240 ml / last 12 hrs, also continues on oxygen NC. 06/[address] continues to drain. Maintain to suction for now 06/[address] continues to drain significant amount. Maintain to suction Re-evaluate in am Objective: Vital Signs Date Time Temp Pulse Resp B/P (MAP) Pulse Ox O2 Delivery O2 Flow Rate FiO2 06/04/17 06:00 88 06/04/17 05:18 98.7 69 18 140/68 (92) 95 06/04/17 05:17 95 Room Air 06/04/17 05:00 68 06/04/17 04:00 80 06/04/17 03:00 80 06/04/17 02:00 86 06/04/17 01:00 74 06/04/17 00:00 74 06/03/17 23:56 98.7 86 18 153/70 (97) 92 06/03/17 23:54 92 Room Air 06/03/17 23:00 80 06/03/17 22:00 88 06/03/17 21:00 86 06/03/17 20:00 99.0 90 18 168/74 (105) 95 06/03/17 20:00 95 Room Air 06/03/17 20:00 80 06/03/17 19:00 88 06/03/17 18:00 90 06/03/17 17:00 88 06/03/17 16:00 99.0 87 20 144/65 (91) 96 06/03/17 16:00 94 Room Air 06/03/17 16:00 87 06/03/17 15:00 85 06/03/17 14:00 83 06/03/17 13:00 85 06/03/17 12:00 78 06/03/17 11:00 97.0 79 20 132/63 (86) 97 06/03/17 11:00 94 Room Air 06/03/17 10:47 94 Nasal Cannula 3.00 06/03/17 10:00 85 06/03/17 09:00 82 Result Diagram: 05/31/17 0419 05/31/17 0419 Everett Sharpe MD Jun 04, 2017 08:56
[2017-06-04] MEDS: LOSARTAN 50 MG TAB PO SCH ×2 (09:00)
[2017-06-04] MEDS: SODIUM CHLORIDE 0.9% FLUSH 5 ML FLUSH IV FLUSH SCH ×4 (09:00→21:50)
[2017-06-04] MEDS: FERROUS SULFATE 300 MG /5ML UDC PO SCH ×2 (09:37)
[2017-06-04] MEDS: MULTIVITAMIN TAB PO SCH ×2 (09:38)
[2017-06-04] MEDS: CHOLECALCIFEROL (VIT D3) 1000 UNIT TAB PO SCH ×2 (09:38)
[2017-06-04] MEDS: oxyCODONE/ACETAMINOPHEN 5 MG/325 MG TAB PO PRN ×4 (09:38→16:40)
[2017-06-04] MEDS: TAMSULOSIN HCL 0.4 MG CAP PO SCH ×2 (09:39)
[2017-06-04] MEDS: FENOFIBRATE 48 MG TAB PO SCH ×2 (09:39)
[2017-06-04] MEDS: CARVEDILOL 12.5 MG TAB PO SCH ×4 (09:39→21:46)
[2017-06-04] MEDS: SODIUM CHLOR 0.9% 1000 ML INJ 1,000 ML IV SCH ×2 (18:00)
[2017-06-04] MEDS: DOCUSATE CALCIUM 240 MG CAP PO SCH ×2 (21:00)
[2017-06-04] MEDS ORDERED: LOSARTAN 50 MG TAB PO SCH ×2 (21:30)
[2017-06-04] MEDS: ASPIRIN 81 MG CHEW TAB PO SCH ×2 (21:46)
[2017-06-04] MEDS: ATORVASTATIN 80 MG TAB PO SCH ×2 (21:46)
[2017-06-04] MEDS: ZOLPIDEM TARTRATE 10 MG TAB PO PRN ×2 (21:47)
[2017-06-04] MEDS: TERAZOSIN HCL 1 MG CAP PO SCH ×2 (21:48)
[2017-06-04] MEDS: PANTOPRAZOLE SOD 40 MG DELAYED RELEASE TAB PO SCH ×2 (21:49)
[2017-06-05] VITALS (17 sets, daily range): BP systolic 135–164; BP diastolic 54–98; PULSE 72–103; RESP 16–20; TEMP 97.3–98.4; O2SAT 92–95
[2017-06-05] MEDS: oxyCODONE/ACETAMINOPHEN 5 MG/325 MG TAB PO PRN ×4 (00:51→13:30)
[2017-06-05] MEDS: SODIUM CHLORIDE 0.9% FLUSH 5 ML FLUSH IV FLUSH SCH ×2 (09:00)
[2017-06-05] MEDS: CHOLECALCIFEROL (VIT D3) 1000 UNIT TAB PO SCH ×2 (09:26)
[2017-06-05] MEDS: MULTIVITAMIN TAB PO SCH ×2 (09:26)
[2017-06-05] MEDS: TAMSULOSIN HCL 0.4 MG CAP PO SCH ×2 (09:26)
[2017-06-05] MEDS: FERROUS SULFATE 300 MG /5ML UDC PO SCH ×2 (09:27)
[2017-06-05] MEDS: CARVEDILOL 12.5 MG TAB PO SCH ×2 (09:27)
[2017-06-05] MEDS: FENOFIBRATE 48 MG TAB PO SCH ×2 (09:27)
[2017-06-05 11:56] LABS: HEMATOCRIT 30.7 % (39.0-51.0); HEMOGLOBIN 10.3 GM/DL (13.0-17.0); MEAN CELL VOLUME 90.8 FL (80.0-100.0); MEAN CORPUSCULAR HEMOGLOBIN 30.4 PG (27.0-34.0); MEAN CORPUSCULAR HGB CONC 33.5 % (32.0-36.0); MEAN PLATELET VOLUME 6.7 FL (7.0-11.0); PLATELET COUNT 329 TH/MM3 (150-450); RED BLOOD COUNT 3.39 MIL/MM3 (4.50-5.90); RED CELL DISTRIBUTION WIDTH 14.1 % (11.6-17.2); WHITE BLOOD COUNT 9.7 TH/MM3 (4.0-11.0)
--- NOTE | 2017-06-05 11:58 | PD.CAR.PN ---
CVT Progress Note Subjective/Hospital Course: 76/ male hx of pulmonary fibrosis presented to Dr Emery Gaines after incidental finding of left lung mass on CXR and confirmed with CT Chest . + CT-PET, underwent CT guided BX non diagnostic , presented to office for further evaluation PMH: pulm fibrosis, HTN, HLP, CAD / s/p PCI Doing well s/p left thoracotomy. 06/01/17 No complaints. 06/02/17 chest tube drainage increased over the past 24 hrs. 240 ml / last 12 hrs, also continues on oxygen NC. 06/[address] continues to drain. Maintain to suction for now 06/[address] continues to drain significant amount. Maintain to suction Re-evaluate in am 06/05 chest tube drained 140cc/ 12 hr serous drainage , no air leak, now to water seal will re-eval later for possible removal had short run / non sustained SVT/ electrolytes pending Objective: GENERAL: SKIN: Warm and dry. incision intact ans well approximated to left posterior chest wall HEAD: Normocephalic. EYES: No scleral icterus. No injection or drainage. NECK: Supple, trachea midline. No JVD or lymphadenopathy. CARDIOVASCULAR: Regular rate and rhythm without murmurs, gallops, or rubs. RESPIRATORY: Breath sounds equal bilaterally. No accessory muscle use. chest tube in place, no air leak GASTROINTESTINAL: Abdomen soft, non-tender, nondistended. MUSCULOSKELETAL: No cyanosis, or edema. BACK: Nontender without obvious deformity. No CVA tenderness. Vital Signs Date Time Temp Pulse Resp B/P (MAP) Pulse Ox O2 Delivery O2 Flow Rate FiO2 06/05/17 10:00 84 06/05/17 09:00 99 06/05/17 08:00 90 06/05/17 07:00 90 06/05/17 07:00 92 Room Air 06/05/17 07:00 98.2 90 20 146/70 (95) 92 06/05/17 06:23 98.4 103 16 164/71 (102) 95 06/05/17 06:00 98 06/05/17 05:00 76 06/05/17 04:05 96 Room Air 06/05/17 04:00 72 06/05/17 03:00 74 06/05/17 02:00 72 06/05/17 01:00 84 06/05/17 00:00 98.1 86 16 144/54 (84) 94 06/05/17 00:00 76 06/04/17 23:18 93 Room Air 06/04/17 23:00 83 06/04/17 22:00 90 06/04/17 21:00 90 06/04/17 20:00 92 Room Air 06/04/17 20:00 98.1 90 16 169/77 (107) 92 06/04/17 20:00 100 06/04/17 19:00 83 06/04/17 18:00 89 06/04/17 17:40 18 06/04/17 17:00 84 06/04/17 16:00 83 06/04/17 15:00 98.0 87 16 156/74 (101) 93 06/04/17 15:00 93 Room Air 06/04/17 15:00 83 06/04/17 14:00 82 06/04/17 13:00 85 06/04/17 12:00 76 Telemetry: Last Impressions Chest X-Ray 06/03/17 0600 Signed Impressions: Service Date/Time: Monday, June 03, 2017 05:12 - CONCLUSION: No significant interval change. No evidence of pneumothorax. Left lung opacity unchanged. 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 OPERATIVE/RADIOGRAPHIC STAGE T2 N2 M0; at least stage IIIA. Dr Fisher following Problem Qualifiers (1) Lung cancer: Qualified Codes: C34.12 - Malignant neoplasm of upper lobe, left bronchus or lung Mary Kate Springer Jun 05, 2017 11:58
[2017-06-05 12:17] LABS: BICARBONATE 27.9 MEQ/L (21.0-32.0); CALCIUM 8.6 MG/DL (8.5-10.1); CREATININE 1.2 MG/DL (0.60-1.30); MAGNESIUM 2.1 MG/DL (1.5-2.5); PHOSPHORUS 2.9 MG/DL (2.5-4.9)
[2017-06-05] MEDS ORDERED: TAMS5CAP PO ×2 (14:26)
[2017-06-05] MEDS ORDERED: TERA1CAP3 PO ×2 (14:26)
[2017-06-05] MEDS ORDERED: CARV12.5 PO ×2 (14:26)
[2017-06-05] MEDS ORDERED: OXYC1TAB63 PO ×2 (14:26)
--- NOTE | 2017-06-05 14:55 | RADRPT ---
EXAM DATE/TIME: 06/05/2017 14:32 [facility] COMPARISON: CHEST SINGLE AP, June 03, 2017, 5:12. INDICATIONS : Post left sided chest tube removal. MEDICAL HISTORY : Hypertension. Chronic obstructive pulmonary disease. Cardiovascular SURGICAL HISTORY : None. ENCOUNTER: Subsequent ACUITY: 1 week PAIN SCORE: 0/10 LOCATION: Bilateral chest FINDINGS: A single view of the chest demonstrates left-sided pleural-parenchymal density. Removal of left-sided chest tube. No definite pneumothorax although small left basilar pneumothorax can't entirely be excl uded. Subcutaneous emphysema. Osseous structures are intact. CONCLUSION: 1. Removal left-sided chest tube. No definite pneumothorax although a small left basilar pneumothorax cannot entirely be excluded. Followup studies are recommended. Hernandez Heart MD on June 05, 2017 at 14:52 Board Certified Radiologist. This report was verified electronically.
--- NOTE | 2017-06-05 15:07 | HHI.DS ---
Discharge Summary Admission Date May 30, 2017 at 09:53 Discharge Date: Jun 05, 2017 Admitting Diagnosis lung mass (1) Lung mass Diagnosis: Principal ICD Codes: R91.8 - Other nonspecific abnormal finding of lung field (2) Lung cancer Diagnosis: Principal ICD Codes: C34.90 - Malignant neoplasm of unspecified part of unspecified bronchus or lung (3) Pulmonary fibrosis Diagnosis: Principal ICD Codes: J84.10 - Pulmonary fibrosis, unspecified Status: Chronic (4) Coronary artery disease Diagnosis: Principal ICD Codes: I25.10 - Atherosclerotic heart disease of [place] coronary artery without angina pectoris Status: Chronic (5) Left thoracotomy for excisional biopsy left lung mass, incisional biopsy AP window node, On-Q pump placement Diagnosis: Secondary Procedures Left thoracotomy for excisional biopsy left lung mass, incisional biopsy AP window node, On-Q pump placement 05/30 Brief History 76/ male hx of pulmonary fibrosis presented to Dr Emery Gaines after incidental finding of left lung mass on CXR and confirmed with CT Chest . + CT-PET, underwent CT guided BX non diagnostic , presented to office for further evaluation PMH: pulm fibrosis, HTN, HLP, CAD / s/p PCI CBC/BMP: 06/05/17 1145 06/05/17 1145 Significant Findings Laboratory Tests Test 06/05/17 11:45 Red Blood Count 3.39 MIL/MM3 (4.50-5.90) Hemoglobin 10.3 GM/DL (13.0-17.0) Hematocrit 30.7 % (39.0-51.0) Mean Platelet Volume 6.7 FL (7.0-11.0) Random Glucose 129 MG/DL (74-106) Estimat Glomerular Filtration Rate 59 ML/MIN (>89) Imaging Last Impressions Chest X-Ray 06/05/17 1430 Signed Impressions: Service Date/Time: Monday, June 05, 2017 14:32 - CONCLUSION: 1. Removal left-sided chest tube. No definite pneumothorax although a small left basilar pneumothorax cannot entirely be excluded. Followup studies are recommended. Hernandez Heart MD PE at Discharge GENERAL: SKIN: Warm and dry. 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 EYES: No scleral icterus. No injection or drainage. NECK: Supple, trachea midline. No JVD or lymphadenopathy. CARDIOVASCULAR: Regular rate and rhythm without murmurs, gallops, or rubs. RESPIRATORY: Breath sounds equal bilaterally. No accessory muscle use. GASTROINTESTINAL: Abdomen soft, non-tender, nondistended. MUSCULOSKELETAL: No cyanosis, or edema. BACK: Nontender without obvious deformity. No CVA tenderness. Hospital Course Doing well s/p left thoracotomy. 06/01/17 No complaints. 06/02/17 chest tube drainage increased over the past 24 hrs. 240 ml / last 12 hrs, also continues on oxygen NC. 06/[address] continues to drain. Maintain to suction for now 06/[address] continues to drain significant amount. Maintain to suction Re-evaluate in am 06/05 chest tube drained 140cc/ 12 hr serous drainage , no air leak, now to water seal will re-eval later for possible removal had short run / non sustained SVT/ electrolytes pending K+ 3.7/ potassium replaced Pt Condition on Discharge: Good Discharge Disposition: Disch w/ Home Health Serv Discharge Instructions DIET: Follow Instructions for: As Tolerated, No Restrictions, Low Fat Diet Activities you can perform: Weight Bearing as [place], Shower Only-No Bath Activities to avoid: Driving Follow up Referrals: Oncology/Hematology - 2 Weeks with Josesito Fisher MD PCP Follow-up - 2 Weeks with Do Saray Fox MD Surgical with Enid Zepeda MD New Orders: X-RAY CHEST PA & LAT - 2 Weeks New Medications: Carvedilol (Coreg) 12.5 Mg Tab 12.5 MG PO BID for Blood Pressure Management, #60 TAB 2 Refills Oxycodone-Acetaminophen (Oxycodone-Acetaminophen) 5-325 mg Tab 1 TAB PO Q6HR PRN for PAIN GREATER THAN 5, #40 TAB 0 Refills Tamsulosin (Flomax) 0.4 Mg Cap 0.4 MG PO DAILY for urinary retention , #30 CAP 2 Refills Terazosin (Terazosin) 1 Mg Cap 1 MG PO HS for urinary retention, #30 CAP 2 Refills Continued Medications: Acetylcysteine (Nutrient) (B-Sgcmjt-u-Cysteine) 600 Mg Cap 1 TAB PO BID for pulmonary fibrosis Amlodipine (Amlodipine) 10 Mg Tab 10 MG PO DAILY for Blood Pressure Management, #30 TAB 0 Refills Aspirin (Aspirin Low Dose) 81 Mg Chew 81 MG PO HS, TAB 0 Refills Atorvastatin (Atorvastatin) 80 Mg Tab 80 MG PO HS for Cholesterol Management, #30 TAB 0 Refills Cholecalciferol (D3 Super Strength) 2,000 Unit Cap 2000 UNITS PO DAILY for Nutritional Supplement, #30 CAP 0 Refills Clopidogrel (Plavix) 75 Mg Tab 75 MG PO DAILY for Blood Clot Prevention, #30 TAB 0 Refills Coenzyme Q10 (Ubidecarenone) (Co Q-10) 200 Mg Cap 1 TAB PO BID for Nutritional Supplement Fenofibrate (Fenofibrate) 54 Mg Tab 54 MG PO DAILY, #30 TAB 0 Refills Ferrous Sulfate (Feosol) 325 Mg (65 Mg Iron) Tab 1 TAB PO DAILY for Nutritional Supplement, #60 TAB 0 Refills Losartan-Hydrochlorothiazide (Losartan-Hydrochlorothiazide) 100-12.5 Mg Tab 1 TAB PO HS for Blood Pressure Management, #30 TAB 0 Refills Multiple Vitamin (Multiple Vitamin) 1 Tab 1 TAB PO DAILY for Nutritional Supplement, TAB 0 Refills Pantoprazole (Pantoprazole) 40 Mg Tab 40 MG PO DAILY for Reflux, #30 TAB 0 Refills Zolpidem (Zolpidem) 10 Mg Tab 10 MG PO HS PRN for INSOMNIA, TAB 0 Refills Discontinued Medications: Carvedilol (Carvedilol) 12.5 Mg Tab 12.5 MG PO DAILY, #60 TAB 0 Refills Carvedilol (Coreg) 25 Mg Tab 25 MG PO HS, #60 TAB 0 Refills Mary Kate Springer Jun 05, 2017 15:07
[2017-06-05] MEDS ORDERED: POTASSIUM CHLORIDE 10 MEQ CONTROLLED RELEASE TAB PO ONE ×2 (15:30)
== END 2017-06-05 16:25 | disposition home health service (06) | DRG 164 ==
LOC: HSDI 05-30 09:53 → HCPC 05-30 18:21
PROVIDERS: ADMIT Thoracic Surgery (Cardiothoracic Vascular Surgery); ATTEND Thoracic Surgery (Cardiothoracic Vascular Surgery)
PROC: 0JH60VZ Insertion of Infusion Pump into Chest Subcutaneous Tissue and Fascia, Open Approach (ICD-10-PCS; 2017-05-30)
PROC: 07B70ZX Excision of Thorax Lymphatic, Open Approach, Diagnostic (ICD-10-PCS; 2017-05-30)
PROC: 0BBG0ZX Excision of Left Upper Lung Lobe, Open Approach, Diagnostic (ICD-10-PCS; principal; 2017-05-30 12:00)
DX: C34.12 Malignant neoplasm of upper lobe, left bronchus or lung (principal); C78.1 Secondary malignant neoplasm of mediastinum; J44.9 Chronic obstructive pulmonary disease, unspecified; J84.10 Pulmonary fibrosis, unspecified; N40.0 Benign prostatic hyperplasia without lower urinary tract symptoms; E66.9 Obesity, unspecified; I12.9 Hypertensive chronic kidney disease with stage 1 through stage 4 chronic kidney disease, or unspecified chronic kidney disease; R73.03 Prediabetes; I73.9 Peripheral vascular disease, unspecified; E78.5 Hyperlipidemia, unspecified; I25.10 Atherosclerotic heart disease of native coronary artery without angina pectoris; N18.1 Chronic kidney disease, stage 1; Z77.22 Contact with and (suspected) exposure to environmental tobacco smoke (acute) (chronic); Z87.891 Personal history of nicotine dependence; Z95.828 Presence of other vascular implants and grafts; Z98.61 Coronary angioplasty status
CPT/HCPCS: 71010; 80048; 83735; 84100; 85025; 85027; 85610; 86850; 86900; 86901; 86920; 88305; 88307; 88331; 88341; 88342; 93005; 94150; 94640; 94664; J0690; J1644; J2270; J7030; J7120; J7613

== ENCOUNTER 2017-06-28 06:44 | Day surgery (SDC) | payer OTHER ==
[~2017-06-28] VITALS: Ht 177.8 cm; Wt 90.5 kg
[~2017-06-28 06:44] MED LIST changes: -ASPI81CH37 PO; +ASPI81CH6 PO; -ATOR1TAB18 PO; +ATOR80TA45 PO; +CARV12.5 PO; -CARV12.52 PO; -CHOL20005 PO; -CO Q200C PO; +COQ1200C3 PO; +D200CAP PO; +OXYC1TAB63 PO; +TAMS5CAP PO; +TERA1CAP3 PO
[2017-06-28] MEDS ORDERED: SODIUM CHLORIDE 0.9% 1000 ML IV SCH (07:00)
[2017-06-28 07:03] VITALS: BP 151/78; PULSE 69; RESP 20; TEMP 98; O2SAT 96
[2017-06-28] MEDS ORDERED: CHLORHEXIDINE GLUCONATE 2 % 1 PACK (2 CLOTHS) TOPICAL SCH (07:30)
[2017-06-28] MEDS ORDERED: POVIDONE IODINE 5% (ANTISEPSIS KIT) 4 APPLICATIONS EACH NARE SCH (07:30)
[2017-06-28] MEDS ORDERED: ceFAZolin 2 GM PREMIX 50 ML - implanted port/tunneled catheter insertion IV SCH (07:30)
[2017-06-28] MEDS ORDERED: VANCOMYCIN 1000 MG/NS 250 ML - implanted port/tunneled catheter IV SCH ×2 (07:30)
[2017-06-28 07:49] LABS: AUTOMATED NEUTROPHIL # 7.4 TH/MM3 (1.8-7.7); BASOPHIL # 0.1 TH/MM3 (0-0.2); BASOPHIL % 0.8 % (0.0-2.0); EOSINOPHIL # 0.6 TH/MM3 (0-0.4); EOSINOPHIL % 6.6 % (0.0-4.0); HEMATOCRIT 33.6 % (39.0-51.0); HEMO FLAGS DIFF FINAL; LYMPH % 8.1 % (9.0-44.0); LYMPHOCYTE # 0.8 TH/MM3 (1.0-4.8); MEAN CELL VOLUME 86.6 FL (80.0-100.0); MEAN CORPUSCULAR HEMOGLOBIN 28.6 PG (27.0-34.0); MONO % 6.9 % (0.0-8.0); NEUT % 77.6 % (16.0-70.0); PLATELET COUNT 317 TH/MM3 (150-450); RED BLOOD COUNT 3.88 MIL/MM3 (4.50-5.90); RED CELL DISTRIBUTION WIDTH 14.9 % (11.6-17.2); WHITE BLOOD COUNT 9.5 TH/MM3 (4.0-11.0)
[2017-06-28] MEDS ORDERED: MIDAZOLAM HCL 2 MG/2 ML VIAL ONE (08:37)
[2017-06-28] MEDS ORDERED: LIDOCAINE 1%/EPINEPHrine 1:100,000 SOLN 20 ML VIAL ONE (08:44)
--- NOTE | 2017-06-28 09:35 | PD.RAD ---
Post Procedure Progress Note Pre Procedure Diagnosis: (1) Lung cancer Post Procedure Diagnosis: (1) Lung cancer Procedure Date: Jun 28, 2017 Supervising Radiologist: Dom Garcia Anesthesia: Local, Conscious Sedation Plan of Activity Patient to Unit: ROPU Patient Condition: Good Additional Comments: Port placed via the right IJ. Catheter in good position OK for use. Full dictated report to follow See PACS Report for procedural detail/treatment Dom Garcia MD Jun 28, 2017 09:35
[2017-06-28 09:45] VITALS: BP 144/72; PULSE 78; RESP 16; TEMP 97.4; O2SAT 92
[2017-06-28] MEDS ORDERED: SODIUM CHLORIDE 0.9% FLUSH 10 ML FLUSH IVF PRN (09:45)
[2017-06-28 10:00] VITALS: BP 152/67; PULSE 82; RESP 16; O2SAT 98
[2017-06-28 10:30] VITALS: BP 135/70; PULSE 76; RESP 16; O2SAT 98
[2017-06-28 11:00] VITALS: BP 139/75; PULSE 73; RESP 16; O2SAT 98
[2017-06-28 11:30] VITALS: BP 142/72; PULSE 70; RESP 16; O2SAT 94
--- NOTE | 2017-06-28 17:45 | RADRPT ---
EXAM DATE/TIME: 06/28/2017 08:29 [facility] COMPARISON: No previous studies available for comparison. INDICATIONS : Patient presents with lung cancer in need of Power Port placement for treatment. MEDICAL HISTORY : HOPI High Cholesterol CAD HTN COPD Pulmonary Fibrosis Arthritis Carotid stenosis CKD Gastritis Sleep apnea PVD Anemia PBH GERD SURGICAL HISTORY : Tonsillectomy Right femoral bypass Thoracotomy Colonoscopy Cataract surgery Stent placement left groin Stent placement left leg ENCOUNTER: Initial ACUITY: 1 month PAIN SCORE: 0/10 LOCATION: N/A FLUORO TIME: 0.2 minutes IMAGE SERIES: SEDATION TIME: 30 minutes ACCESS: Right internal jugular vein SEDATION: 1.) 3 mg midazolam (Versed) IV 2.) 150 mcg fentanyl (Sublimaze) IV 3.) 2g cefazolin (Ancef) IV Prophylactic antibiotics were administered with appropriate pre-procedure timing. Vancomycin within 2 hours of procedure, Ancef (or alternative) within 1 hour of procedure. DEVICE: 1. [address] [place] [address] lumen [address] Port CT PROCEDURE : 1. Continuous pulse oximetry and EKG monitoring. 2. Intravenous conscious sedation. 3. Ultrasound guidance for venous access. 4. Fluoroscopic guided implantable central venous port placement. The patient was placed supine. The neck was prepped in sterile fashion. Full sterile technique was u sed, including cap, mask, sterile gloves and gown, and a large sterile sheet. Hand hygiene and 2% ch lorhexidine Betadine was utilized per protocol for cutaneous antisepsis with appropriate dry time for site. Sterile gel and sterile probe cover were utilized for ultrasound guidance. The skin and sub cutaneous tissues were infiltrated with local anesthetic solution. Under direct ultrasound guidance, central venous access was accomplished in the targeted vessel. The ultrasound images depicting access guidance were stored and saved to PACS for permanent record. A s ubcutaneous pocket was created using blunt dissection. The port was introduced to the pocket. The c atheter tubing was fed through a subcutaneous tunnel to the venotomy site. The catheter tubing was c ut to a suitable length and then was introduced through a valved Peel-Away sheath and positioned with catheter tubing tip at the cavo-atrial junction level. The pocket incision was closed with subcutic ular Vicryl suture. Steri-Strips were applied. The port was flushed and locked with heparin solutio n per protocol. Sterile dressing was applied to the site. The patient tolerated the procedure well. Conscious sedation was performed with the prescribed dosages and duration as above in the presence of an independent trained radiology nurse to assist in the monitoring of the patient. EKG and oximetry remained stable throughout the procedure. The patient tolerated the procedure well and there were no complications. The patient was sent to post anesthesia recovery in stable condition. CONCLUSION: Uncomplicated ultrasound and fluoroscopic guided implanted central venous port catheter placement as described in detail above. An 8 [place] Power port was placed. Dom Garcia MD on June 28, 2017 at 17:42 Board Certified Radiologist. This report was verified electronically.
== END 2017-06-28 11:30 | disposition home or self-care (01) ==
LOC: HROP 06:44 → HRIP 06:50 → HROP 11:30
PROVIDERS: ATTEND Internal Medicine Hematology & Oncology
DX: Z45.2 Encounter for adjustment and management of vascular access device (principal); C34.90 Malignant neoplasm of unspecified part of unspecified bronchus or lung; I12.9 Hypertensive chronic kidney disease with stage 1 through stage 4 chronic kidney disease, or unspecified chronic kidney disease; N18.9 Chronic kidney disease, unspecified; J44.9 Chronic obstructive pulmonary disease, unspecified; K21.9 Gastro-esophageal reflux disease without esophagitis; I25.10 Atherosclerotic heart disease of native coronary artery without angina pectoris; G47.30 Sleep apnea, unspecified
CPT/HCPCS: 36561; 76937; 77001; 85025; 99152; 99153; C1788; J0690; J1642; J2250; J3010; J3370; J7030; J7050

== ENCOUNTER 2017-08-18 11:42 | Inpatient (IN) | payer OTHER, MEDICARE ==
[2017-08-18] VITALS (12 sets, daily range): BP systolic 132–151; BP diastolic 64–87; PULSE 80–98; RESP 16–20; TEMP 97–99; O2SAT 89–96
[~2017-08-18] VITALS: Ht 177.8 cm; Wt 95.0 kg
[2017-08-18] MEDS ORDERED: SODIUM CHLORIDE 0.9% FLUSH 10 ML FLUSH IVF PRN (12:15)
--- NOTE | 2017-08-18 12:50 | RADRPT ---
EXAM DATE/TIME: 08/18/2017 12:20 [facility] COMPARISON: CT SIMULATION, July 12, 2017, 14:11. CHEST SINGLE AP, June 05, 2017, 14:32. INDICATIONS : Cough and shortness of breath. MEDICAL HISTORY : Carcinoma, lung. Hypertension. Chronic obstructive pulmonary disease. Cardiovascular disease; p ulmoary fibrosis SURGICAL HISTORY : ENCOUNTER: Initial ACUITY: 1 month PAIN SCORE: 6/10 LOCATION: Bilateral upper chest FINDINGS: A single AP portable view of the chest was obtained and demonstrates interval placement of a right-si ded implantable port catheter with the tip in the superior vena cava. Coarse chronic changes are agai n noted in the left hemithorax characteristic of scarring. The left suprahilar mass is again noted wi thout significant change. There is new mild patchy opacity in the right lung base. The heart size rem ains at the upper limits of normal. CONCLUSION: 1. New mild patchy opacity at the right lung base with no consolidation. 2. Chronic scarring again noted in the left lung without significant change. 3. Left suprahilar mass without significant change. 4. Interval placement of right-sided implantable port catheter. Agus Esparza MD on August 18, 2017 at 12:46 Board Certified Radiologist. This report was verified electronically.
[2017-08-18 13:00] LABS: AUTOMATED NEUTROPHIL # 2.8 TH/MM3 (1.8-7.7); BASOPHIL % 0.5 % (0.0-2.0); EOSINOPHIL % 0.3 % (0.0-4.0); HEMATOCRIT 23.2 % (39.0-51.0); HEMOGLOBIN 7.9 GM/DL (13.0-17.0); LYMPH % 4.3 % (9.0-44.0); LYMPHOCYTE # 0.1 TH/MM3 (1.0-4.8); MEAN CELL VOLUME 86.2 FL (80.0-100.0); MEAN CORPUSCULAR HEMOGLOBIN 29.4 PG (27.0-34.0); MEAN CORPUSCULAR HGB CONC 34.1 % (32.0-36.0); MEAN PLATELET VOLUME 7.3 FL (7.0-11.0); MONO % 5.6 % (0.0-8.0); MONOCYTE # 0.2 TH/MM3 (0-0.9); NEUT % 89.3 % (16.0-70.0); PLATELET COUNT 206 TH/MM3 (150-450); RED BLOOD COUNT 2.69 MIL/MM3 (4.50-5.90); RED CELL DISTRIBUTION WIDTH 17.1 % (11.6-17.2); WHITE BLOOD COUNT 3.1 TH/MM3 (4.0-11.0)
[2017-08-18 13:05] LABS: INTERNATIONAL NORMALIZED RATIO 1.1 RATIO; PROTHROMBIN TIME - PATIENT 10.9 SEC (9.8-11.6)
[2017-08-18 13:32] LABS: ALBUMIN 2.9 GM/DL (3.4-5.0); AST (GOT) 22 U/L (15-37); BICARBONATE 28.4 MEQ/L (21.0-32.0); BLOOD UREA NITROGEN 20 MG/DL (7-18); CALCIUM 8.8 MG/DL (8.5-10.1); CHLORIDE 101 MEQ/L (98-107); CREATININE 1.22 MG/DL (0.60-1.30); GLOMERULAR FILTRATION RATE 58 ML/MIN (>89); GLUCOSE,RANDOM 127 MG/DL (74-106); MAGNESIUM 2.1 MG/DL (1.5-2.5); SODIUM (NA) 138 MEQ/L (136-145)
[2017-08-18] MEDS ORDERED: IOHEXOL 350 MG/ML 10 ML VIAL (for RAD DIAG) IVCONTRAST ONE (13:36)
[2017-08-18 13:37] LABS: ALKALINE PHOSPHATASE 54 U/L (45-117); ALT (GPT) 17 U/L (12-78); TOTAL BILIRUBIN ADULT 0.5 MG/DL (0.2-1.0); TROPONIN I 0.13 NG/ML (0.02-0.05)
--- NOTE | 2017-08-18 13:52 | RADRPT ---
EXAM DATE/TIME: 08/18/2017 13:33 [facility] COMPARISON: CT NEEDLE BIOPSY LUNG, LEFT, April 05, 2017, 8:21. CHEST SINGLE AP, August 18, 2017, 12:20. INDICATIONS : Short of breath, embolism. IV CONTRAST: 72 cc Omnipaque 350 (iohexol) IV RADIATION DOSE: 23.20 CTDIvol (mGy) MEDICAL HISTORY : Carcinoma, lung. Hypertension. Cardiovascular disease SURGICAL HISTORY : None. ENCOUNTER: Initial ACUITY: 1 day PAIN SCALE: 7/10 LOCATION: Bilateral chest TECHNIQUE: Volumetric scanning of the chest was performed using a pulmonary embolism protocol MIP images were re constructed. Using automated exposure control and adjustment of the mA and/or kV according to patien t size, radiation dose was kept as low as reasonably achievable to obtain optimal diagnostic quality images. DICOM format image data is available electronically for review and comparison. Follow-up recommendations for detected pulmonary nodules are based at a minimum on nodule size and pa tient risk factors according to Fleischner Society Guidelines. FINDINGS: Bony structures remain intact. Extensive atherosclerotic cardiovascular disease is appreciated. A lef t hilar suprahilar mass has increased in size from 3.8 now 5 cm in diameter with precarinal and right paratracheal adenopathy consistent with malignancy. The pleural parenchymal density in the anterior lateral left chest remains present area of prior biopsy. Intrinsic emphysematous changes are noted in the lung bowles as well as development of small posterior left pleural effusion. There is no evidence of pulmonary embolism with pulmonary ar figueroa seen to the third fourth and some extent fifth level segment branching with no evidence of throm bus or defect or oligemia. CONCLUSION: Negative for pulmonary embolization. Pleural-parenchymal density left anterior chest previously bi opsied remains present in the right suprahilar soft tissue mass has increased in size as well as pret nehal and right paratracheal adenopathy consistent with malignancy. There is intrinsic emphysematou s changes in both lungs and there is a small left pleural effusion. Bolivar Cardenas MD on August 18, 2017 at 13:43 Board Certified Radiologist. This report was verified electronically.
[2017-08-18] MEDS ORDERED: methylPREDNISolone SOD SUCC 125 MG/2 ML VIAL IV PUSH ONE (14:15)
[2017-08-18] MEDS: RESP: ALBUTEROL 2.5 MG/IPRATROPIUM 0.5 MG NEB (SCH) INH ×2 (14:16→14:17)
[2017-08-18] MEDS ORDERED: SODIUM CHLOR 0.9% 250 ML INJ 250 ML IV ONE (14:45)
[2017-08-18] MEDS ORDERED: RESP: ALBUTEROL 2.5 MG/IPRATROPIUM 0.5 MG NEB (PRN) NEB (15:00)
[2017-08-18] MEDS ORDERED: BISACODYL 10 MG SUPP RECTAL PRN (15:00)
[2017-08-18] MEDS ORDERED: TEMAZEPAM 15 MG CAP PO PRN (15:00)
[2017-08-18] MEDS ORDERED: MAGNESIUM HYDROXIDE SUSP 30 ML CUP PO PRN (15:00)
[2017-08-18] MEDS ORDERED: ONDANSETRON HCL 4 MG/2 ML VIAL IVP PRN (15:00)
[2017-08-18] MEDS ORDERED: NALOXONE HCL 0.4 MG/ML AMP IV PUSH PRN (15:00)
[2017-08-18] MEDS ORDERED: ACETAMINOPHEN/HYDROcodone 325 MG/7.5 MG TAB PO PRN (15:00)
[2017-08-18] MEDS ORDERED: SODIUM CHLORIDE 0.9% FLUSH 10 ML FLUSH IV FLUSH PRN (15:00)
[2017-08-18] MEDS ORDERED: SENNOSIDES 8.6 MG TAB PO PRN (15:00)
[2017-08-18] MEDS ORDERED: ACETAMINOPHEN/HYDROcodone 325 MG/5 MG TAB PO PRN (15:00)
[2017-08-18] MEDS ORDERED: LACTULOSE SYRUP 20 GM/30 ML CUP PO PRN (15:00)
[2017-08-18] MEDS ORDERED: ACETAMINOPHEN 325 MG TAB PO PRN ×2 (15:00)
--- NOTE | 2017-08-18 18:07 | PD ---
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 He says for 5 days he has had worsening shortness of breath, constant, worse with exertion, associated with a nonproductive cough. He denies any fevers or chills. He does have a history of COPD and he wears CPAP at night. He does not wear any oxygen during the day. He is currently receiving chemo therapy and radiation for his lung cancer from Dr. Fisher. He was told yesterday in the clinic appointment that he is anemic and Dr. Fisher recommended a blood transfusion by the patient wanted to defer at that time. PFSH Past Medical History Hx Anticoagulant Therapy: No Cancer: Yes (lung CA) Cardiovascular Problems: No (cholesterol, CAD, stent x 2, carotid, femoral, iliac artery stenosis) High Cholesterol: Yes Chemotherapy: Yes COPD: Yes Cerebrovascular Accident: No Diabetes: No Diminished Hearing: Yes (hearing aid) Endocrine: No Gastrointestinal Disorders: Yes (GERD, polyps, gastritis) GERD: Yes Genitourinary: No Hepatitis: No Hiatal Hernia: No Hypertension: Yes Immune Disorder: No Musculoskeletal: No Neurologic: No Psychiatric: No Reproductive: No Respiratory: Yes (pulmonary fibrosis, O2 3 L w/CPAP HS,partial left lobectomy 05-30-17) Radiation Therapy: Yes Sleep Apnea: Yes (CPAP at HS) Thyroid Disease: No ?: Not Past Surgical History Abdominal Surgery: No AICD: No Body Medical Devices: stents to right leg and lower abdomen, RIGHT CHEST PORT Cardiac Surgery: No Ear Surgery: No Endocrine Surgery: No Eye Surgery: No Genitourinary Surgery: No Gynecologic Surgery: No Hysterectomy: No Joint Replacement: No Oral Surgery: Yes (tonsillectomy 1950) Pacemaker: No Thoracic Surgery: Yes Other Surgery: Yes (POLYPS 4 YEARS AGO) Social History Alcohol Use: Yes (2 water glasses of wine daily) Tobacco Use: No (QUIT 3 YEARS) Substance Use: No Allergies-Medications (Allergen,Severity, Reaction): Coded Allergies: No Known Allergies (Unverified Allergy, Unknown, 06/28/17) Reported Meds & Prescriptions Reported Meds & Active Scripts Active Oxycodone-Acetaminophen 5-325 mg Tab 1 Tab PO Q6HR PRN Coreg (Carvedilol) 12.5 Mg Tab 12.5 Mg PO BID Terazosin (Terazosin HCl) 1 Mg Cap 1 Mg PO HS Flomax (Tamsulosin HCl) 0.4 Mg Cap 0.4 Mg PO DAILY Reported Zolpidem (Zolpidem Tartrate) 10 Mg Tab 10 Mg PO HS PRN Atorvastatin (Atorvastatin Calcium) 80 Mg Tab 80 Mg PO HS Co Q-10 (Coenzyme Q10 (Ubidecarenone)) 200 Mg Cap 1 Tab PO BID H-Hykqer-d-Cysteine (Acetylcysteine (Nutrient)) 600 Mg Cap 1 Tab PO BID D3 Super Strength (Cholecalciferol) 2,000 Unit Cap 2,000 Units PO DAILY Feosol (Ferrous Sulfate) 325 Mg (65 Mg Iron) Tab 1 Tab PO DAILY Fenofibrate 54 Mg Tab 54 Mg PO DAILY Multiple Vitamin 1 Tab 1 Tab PO DAILY Pantoprazole (Pantoprazole Sodium) 40 Mg Tab 40 Mg PO DAILY Losartan-Hydrochlorothiazide 100-12.5 Mg Tab 1 Tab PO HS Plavix (Clopidogrel Bisulfate) 75 Mg Tab 75 Mg PO DAILY Amlodipine (Amlodipine Besylate) 10 Mg Tab 10 Mg PO DAILY Aspirin Low Dose (Aspirin) 81 Mg Chew 81 Mg PO HS Review of Systems Except as stated in HPI: all other systems reviewed are Neg Physical Exam Narrative GENERAL:Well appearing, no acute distress SKIN: Focused skin assessment warm and dry. HEAD: Atraumatic. Normocephalic. EYES: Pupils equal and round. No injection or drainage. ENT: Moist mucous membranes NECK: Trachea midline. CARDIOVASCULAR: Regular rate and rhythm. No murmur appreciated. RESPIRATORY: Clear to auscultation. Breath sounds equal bilaterally. GASTROINTESTINAL: Abdomen soft, non-tender, nondistended. MUSCULOSKELETAL: No obvious deformities. NEUROLOGICAL: Awake and alert. No obvious cranial nerve deficits. Moving all extremities. PSYCHIATRIC: Appropriate mood and affect; insight and judgment normal. Data Data Last Documented VS Vital Signs Date Time Temp Pulse Resp B/P (MAP) Pulse Ox O2 Delivery O2 Flow Rate FiO2 08/18/17 14:24 93 Nasal Cannula 3.00 08/18/17 12:28 87 18 133/77 (95) 08/18/17 11:54 98.2 Orders Orders Electrocardiogram (08/18/17 12:03) Complete Blood Count With Diff (08/18/17 12:03) Comprehensive Metabolic Panel (08/18/17 12:03) Magnesium (Mg) (08/18/17 12:03) Prothrombin Time / Inr (Pt) (08/18/17 12:03) Act Partial Throm Time (Ptt) (08/18/17 12:03) Troponin I (08/18/17 12:03) Chest, Single Ap (08/18/17 12:03) Ecg Monitoring (08/18/17 12:03) Bilateral Bp Monitoring (08/18/17 12:03) Iv Access Insert/Monitor (08/18/17 12:03) Oximetry (08/18/17 12:03) Oxygen Administration (08/18/17 12:03) Sodium Chloride 0.9% Flush (Ns Flush) (08/18/17 12:15) Ct Pulmonary Angiogram (08/18/17 12:03) Iohexol 350 Inj (Omnipaque 350 Inj) (08/18/17 13:36) B-Type Natriuretic Peptide (08/18/17 13:46) Methylprednisolone So Succ Inj (Solumedr (08/18/17 14:15) Albuterol-Ipratropium Neb (Duoneb Neb) (08/18/17 14:15) Type And Screen (08/18/17 14:15) Admit Order (Ed Use Only) (08/18/17 14:33) Labs Laboratory Tests Test 08/18/17 12:21 White Blood Count 3.1 TH/MM3 Red Blood Count 2.69 MIL/MM3 Hemoglobin 7.9 GM/DL Hematocrit 23.2 % Mean Corpuscular Volume 86.2 FL Mean Corpuscular Hemoglobin 29.4 PG Mean Corpuscular Hemoglobin Concent 34.1 % Red Cell Distribution Width 17.1 % Platelet Count 206 TH/MM3 Mean Platelet Volume 7.3 FL Neutrophils (%) (Auto) 89.3 % Lymphocytes (%) (Auto) 4.3 % Monocytes (%) (Auto) 5.6 % Eosinophils (%) (Auto) 0.3 % Basophils (%) (Auto) 0.5 % Neutrophils # (Auto) 2.8 TH/MM3 Lymphocytes # (Auto) 0.1 TH/MM3 Monocytes # (Auto) 0.2 TH/MM3 Eosinophils # (Auto) 0.0 TH/MM3 Basophils # (Auto) 0.0 TH/MM3 CBC Comment DIFF FINAL Differential Comment Prothrombin Time 10.9 SEC Prothromb Time International Ratio 1.1 RATIO Activated Partial Thromboplast Time 27.9 SEC Blood Urea Nitrogen 20 MG/DL Creatinine 1.22 MG/DL Random Glucose 127 MG/DL Total Protein 7.0 GM/DL Albumin 2.9 GM/DL Calcium Level 8.8 MG/DL Magnesium Level 2.1 MG/DL Alkaline Phosphatase 54 U/L Aspartate Amino Transf (AST/SGOT) 22 U/L Alanine Aminotransferase (ALT/SGPT) 17 U/L Total Bilirubin 0.5 MG/DL Sodium Level 138 MEQ/L Potassium Level 3.5 MEQ/L Chloride Level 101 MEQ/L Carbon Dioxide Level 28.4 MEQ/L Anion Gap 9 MEQ/L Estimat Glomerular Filtration Rate 58 ML/MIN Troponin I 0.13 NG/ML B-Type Natriuretic Peptide 640 PG/ML [facility] Medical Decision Making Medical Screen Exam Complete: Yes Emergency Medical Condition: Yes Interpretation(s) Hemoglobin is 7.9 Electrolytes are reassuring Troponin is 0.13 BNP is 640 Chest x-ray demonstrates a patchy opacity at the right lung base CTA demonstrates a pleural-parenchymal density in the left anterior chest which has increased in size as well as emphysematous changes to both lungs and a left pleural effusion. Differential Diagnosis Pulmonary embolism, pleural effusion, pneumonia, congestive heart failure Narrative Course This is a 76-year-old male who presents to the emergency department with increasing shortness of breath over the past 5 days. He has a history of COPD and lung cancer. He was placed on a monitor and IV was established. Labs demonstrate a mildly elevated troponin and an elevated BNP. Patient has no known history of congestive heart failure. Additionally patient has increasing size of his cancer and continues to be significantly anemic. In the setting of the elevated troponin I think it is reasonable that the patient should be admitted for blood transfusion and further evaluation. He is hypoxic to 89% on room air and does not typically require oxygen during the day. Physician Communication Physician Communication Discussed with Dr. Sanchez Diagnosis Primary Impression: Hypoxia Additional Impression: Anemia Qualified Codes: D64.9 - Anemia, unspecified Admitting Information Admitting Physician Requests: Admit Iona Alejandra MD Aug 18, 2017 18:07
--- NOTE | 2017-08-18 18:16 | HHI.HP ---
[facility] Saray Fox Do, Admission Diagnosis hypoxia, anemia Diagnoses: (1) COPD with exacerbation (2) Respiratory failure with hypoxia (3) Squamous cell carcinoma of left lung (4) Benign hypertension (5) Anemia, chronic disease Chief Complaint: Shortness of breath Travel History International Travel<30 Days: No Contact w/Intl Traveler <30 Da: No Traveled to Known Affected Are: No History of Present Illness 76-year-old man with a history of COPD, pulmonary fibrosis, squamous cell carcinoma of the left lower undergoing radiation therapy presented to the ED for evaluation of 5-68 history of shortness of breath exertion associated with brown congestion without any chest pain. Patient reports fatigue over the past several days. States, despite nebulizer treatment today he continued to be short of breath patient has a history for CECILIO for which he uses BiPAP at night along with oxygen, however state over the past hours prior to arrival he had tried to use oxygen Improvement of shortness of breath. Patient was diagnosis squamous carcinoma of the left lung for which he underwent wedge resection 05/30 of the left upper lobe. Vitals on admission, patient afebrile, BP 139/64, HR 84, RR 16 and 89% RA. Abnormal labs include H/H 7.9/23.2, troponin 0.13 and BNP of 640. Chest x-ray noted and reviewed by me without any Past Family Social History Past Medical History Arthritis Atherosclerosis of LE and aorta Carotid stenosis Chemotherapy associated myelosuppression CKD3-Chronic kidney disease stage 3 Colon polyp COPD Coronary artery disease Elevated glucose Emphysema Gastritis Hyperlipidemia Hypertension Left lung mass with enlarged mediastinal node on CT Left upper lobe Invasive poorly differentiated squamous cell carcinoma Nephropathy No lupus,scleroderma,collagen vascular disease CECILIO Obstructive sleep apnea Oxygen and CPAP at bedtime Previous Radiation Therapy-No Pulmonary fibrosis PVD-Peripheral vascular disease 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 Left upper lobe wedge resection Infusion port placement in 2017 Left thoracotomy for excisional biopsy-left lung mass, incisional biopsy AP window node, On Q pump placement in 2017 Colonoscopy in 2012 Right stent placed in 2013 Reported Medications Oxycodone-Acetaminophen 5-325 mg Tab 1 Tab PO Q6HR PRN Coreg (Carvedilol) 12.5 Mg Tab 12.5 Mg PO BID Terazosin (Terazosin HCl) 1 Mg Cap 1 Mg PO HS Flomax (Tamsulosin HCl) 0.4 Mg Cap 0.4 Mg PO DAILY Zolpidem (Zolpidem Tartrate) 10 Mg Tab 10 Mg PO HS PRN Atorvastatin (Atorvastatin Calcium) 80 Mg Tab 80 Mg PO HS Co Q-10 (Coenzyme Q10 (Ubidecarenone)) 200 Mg Cap 1 Tab PO BID C-Hrdjwo-u-Cysteine (Acetylcysteine (Nutrient)) 600 Mg Cap 1 Tab PO BID D3 Super Strength (Cholecalciferol) 2,000 Unit Cap 2,000 Units PO DAILY Feosol (Ferrous Sulfate) 325 Mg (65 Mg Iron) Tab 1 Tab PO DAILY Fenofibrate 54 Mg Tab 54 Mg PO DAILY Multiple Vitamin 1 Tab 1 Tab PO DAILY Pantoprazole (Pantoprazole Sodium) 40 Mg Tab 40 Mg PO DAILY Losartan-Hydrochlorothiazide 100-12.5 Mg Tab 1 Tab PO HS Plavix (Clopidogrel Bisulfate) 75 Mg Tab 75 Mg PO DAILY Amlodipine (Amlodipine Besylate) 10 Mg Tab 10 Mg PO DAILY Aspirin Low Dose (Aspirin) 81 Mg Chew 81 Mg PO HS Allergies: Coded Allergies: No Known Allergies (Unverified Allergy, Unknown, 06/28/17) Family History Family history positive for [place] as father at age 51. Mother of old age at age 92 Social History Patient used to smoke for 40+ years one half pack a day. Currently denies any. Denies any alcohol or easy drug intake. Physical Exam Vital Signs Vital Signs Date Time Temp Pulse Resp B/P (MAP) Pulse Ox O2 Delivery O2 Flow Rate FiO2 08/18/17 16:10 97.5 84 17 148/71 93 08/18/17 15:41 99.0 82 18 145/81 93 08/18/17 14:40 80 20 132/87 (102) 95 Nasal Cannula 3.00 08/18/17 14:24 93 Nasal Cannula 3.00 08/18/17 12:28 96 Nasal Cannula 2.00 08/18/17 12:28 87 18 133/77 (95) 96 Nasal Cannula 2.00 08/18/17 12:28 16 96 Nasal Cannula 2.00 08/18/17 12:28 16 96 Nasal Cannula 2.00 08/18/17 11:54 98.2 84 16 139/64 (89) 89 Physical Exam GENERAL: This is a well-nourished, well-developed patient, in no apparent distress. SKIN: No rashes, ecchymoses or lesions. Cool and dry. HEAD: Atraumatic. Normocephalic. No temporal or scalp tenderness. EYES: Pupils equal round and reactive. Extraocular motions intact. No scleral icterus. No injection or drainage. ENT: Nose without bleeding, purulent drainage or septal hematoma. Throat without erythema, tonsillar hypertrophy or exudate. Uvula midline. Airway patent. NECK: Trachea midline. No JVD or lymphadenopathy. Supple, nontender, no meningeal signs. CARDIOVASCULAR: Regular rate and rhythm without murmurs, gallops, or rubs. RESPIRATORY: Clear to auscultation. Breath sounds equal bilaterally however absent in the left upper lung. No wheezes, rales, or rhonchi. GASTROINTESTINAL: Abdomen soft, non-tender, nondistended. No hepato-splenomegaly , or palpable masses. No guarding. MUSCULOSKELETAL: Extremities without clubbing, cyanosis, or edema. No joint tenderness, effusion, or edema noted. No calf tenderness. Negative Homans sign bilaterally. NEUROLOGICAL: Awake and alert. Cranial nerves II through XII intact. Motor and sensory grossly within normal limits. Five out of 5 muscle strength in all muscle groups. Normal speech. Laboratory Laboratory Tests Test 08/18/17 12:21 White Blood Count 3.1 Red Blood Count 2.69 Hemoglobin 7.9 Hematocrit 23.2 Mean Corpuscular Volume 86.2 Mean Corpuscular Hemoglobin 29.4 Mean Corpuscular Hemoglobin Concent 34.1 Red Cell Distribution Width 17.1 Platelet Count 206 Mean Platelet Volume 7.3 Neutrophils (%) (Auto) 89.3 Lymphocytes (%) (Auto) 4.3 Monocytes (%) (Auto) 5.6 Eosinophils (%) (Auto) 0.3 Basophils (%) (Auto) 0.5 Neutrophils # (Auto) 2.8 Lymphocytes # (Auto) 0.1 Monocytes # (Auto) 0.2 Eosinophils # (Auto) 0.0 Basophils # (Auto) 0.0 CBC Comment DIFF FINAL Differential Comment Prothrombin Time 10.9 Prothromb Time International Ratio 1.1 Activated Partial Thromboplast Time 27.9 Blood Urea Nitrogen 20 Creatinine 1.22 Random Glucose 127 Total Protein 7.0 Albumin 2.9 Calcium Level 8.8 Magnesium Level 2.1 Alkaline Phosphatase 54 Aspartate Amino Transf (AST/SGOT) 22 Alanine Aminotransferase (ALT/SGPT) 17 Total Bilirubin 0.5 Sodium Level 138 Potassium Level 3.5 Chloride Level 101 Carbon Dioxide Level 28.4 Anion Gap 9 Estimat Glomerular Filtration Rate 58 Troponin I 0.13 B-Type Natriuretic Peptide 640 Result Diagram: 08/18/17 1221 08/18/17 1221 Imaging Last Impressions Chest X-Ray 08/18/17 1203 Signed Impressions: Service Date/Time: Friday, August 18, 2017 12:20 - CONCLUSION: 1. New mild patchy opacity at the right lung base with no consolidation. 2. Chronic scarring again noted in the left lung without significant change. 3. Left suprahilar mass without significant change. 4. Interval placement of right-sided implantable port catheter. Agus Esparza MD CT Angiography 08/18/17 1203 Signed Impressions: Service Date/Time: Friday, August 18, 2017 13:33 - CONCLUSION: Negative for pulmonary embolization. Pleural-parenchymal density left anterior chest previously biopsied remains present in the right suprahilar soft tissue mass has increased in size as well as pretracheal and right paratracheal adenopathy consistent with malignancy. There is intrinsic emphysematous changes in both lungs and there is a small left pleural effusion. Bolivar Cardenas MD Septic Shock Reassessment Septic shock perfusion: reassessment completed Caprini VTE Risk Assessment Caprini VTE Risk Assessment: Mod/High Risk (score >= 2) Caprini Risk Assessment Model Point Value = 1 Point Value = 2 Point Value = 3 Point Value = 5 Age 41-60 Minor surgery BMI > 25 kg/m2 Swollen legs Varicose veins or History of unexplained or recurrent spontaneous Oral contraceptives or hormone replacement Sepsis (< 1 month) Serious lung disease, including pneumonia (< 1 month) Abnormal pulmonary function Acute myocardial infarction Congestive heart failure (< 1 month) History of inflammatory bowel disease Medical patient at bed rest Age 61-74 Arthroscopic surgery Major open surgery (> 45 min) Laparoscopic surgery (> 45 min) Malignancy Confined to bed (> 72 hours) Immobilizing plaster cast Central venous access Age >= 75 History of VTE Family history of VTE Factor V Leiden Prothrombin [id number] Lupus anticoagulant Anticardiolipin antibodies Elevated serum homocysteine Heparin-induced thrombocytopenia Other congenital or acquired thrombophilia Stroke (< 1 month) Elective arthroplasty Hip, pelvis, or leg fracture Acute spinal cord injury (< 1 month) Prophylaxis Regimen Total Risk Factor Score Risk Level Prophylaxis Regimen 0-1 Low Early ambulation 2 Moderate Order ONE of the following: *Sequential Compression Device (SCD) *Heparin 5000 units SQ BID 3-4 Higher Order ONE of the following medications: *Heparin 5000 units SQ TID *Enoxaparin/Lovenox 40 mg SQ daily (WT < 150 kg, CrCl > 30 mL/min) *Enoxaparin/Lovenox 30 mg SQ daily (WT < 150 kg, CrCl > 10-29 mL/min) *Enoxaparin/Lovenox 30 mg SQ BID (WT < 150 kg, CrCl > 30 mL/min) AND/OR *Sequential Compression Device (SCD) 5 or more Highest Order ONE of the following medications: *Heparin 5000 units SQ TID (Preferred with Epidurals) *Enoxaparin/Lovenox 40 mg SQ daily (WT < 150 kg, CrCl > 30 mL/min) *Enoxaparin/Lovenox 30 mg SQ daily (WT < 150 kg, CrCl > 10-29 mL/min) *Enoxaparin/Lovenox 30 mg SQ BID (WT < 150 kg, CrCl > 30 mL/min) AND *Sequential Compression Device (SCD) Assessment and Plan Problem List: (1) COPD with exacerbation ICD Code: J44.1 - Chronic obstructive pulmonary disease with (acute) exacerbation (2) Respiratory failure with hypoxia ICD Code: J96.91 - Respiratory failure, unspecified with hypoxia (3) Anemia, chronic disease ICD Code: D63.8 - Anemia in other chronic diseases classified elsewhere (4) Squamous cell carcinoma of left lung ICD Code: C34.92 - Malignant neoplasm of unspecified part of left bronchus or lung Assessment and Plan 76-year-old man with COPD with exacerbation Respiratory failure with hypoxia CT angiography noted and review by me without any evidence of pulmonary embolism Chest x-ray noted and review by me with finding of a new mild patchy opacity at the right lung however without any consolidation Continue Solu-Medrol, bronchodilator scheduled and when necessary, Azithromycin 250mg daily, Mucinex, Symbicort Keep oxygen saturation above 92% CPAP @ HS Anemia of chronic disease Rule out occult GI bleed and check Iron study Transfuse 1 unit packed red blood cell and monitor H&H Elevated Troponin I Patient denies any chest pain however will rule out ACS per protocol with serial cardiac enzyme and EKGs Elevated BNP without any evidence of pulmonary congestion on chest x-ray 2D echo as well as Cardiology consult when necessary Continue to monitor History of hypertension Resume Coreg, losartan-chlorothiazide, amlodipine Hyperlipidemia Resume Lipitor, Tricor History of squamous cell carcinoma of the lung With follow-up outpatient with oncology for plan XRT 08/22/17 DVT prophylaxis: Lovenox Code Status Full code Discussed Condition With Patient, , ED physician Physician Certification 2 Midnight Certification Type: Admission for Inpatient Services Order for Inpatient Services The services are ordered in accordance with Medicare regulations or non- Medicare payer requirements, as applicable. In the case of services not specified as inpatient-only, they are appropriately provided as inpatient services in accordance with the 2-midnight benchmark. Estimated LOS (days): 2 days is the estimated time the patient will need to remain in the hospital, assuming treatment plan goals are met and no additional complications. Post-Hospital Plan: Not yet determined Hernandez Sanchez MD Aug 18, 2017 18:16
[2017-08-18] MEDS: RESP: ALBUTEROL 2.5 MG/IPRATROPIUM 0.5 MG NEB (SCH) NEB (20:27)
[2017-08-18] MEDS: guaiFENesin E.R. 600 MG TAB PO SCH (20:38)
[2017-08-18] MEDS: CARVEDILOL 12.5 MG TAB PO SCH (20:38)
[2017-08-18] MEDS: DOCUSATE SODIUM 50 MG/SENNA 8.6 MG TAB PO SCH (20:38)
[2017-08-18] MEDS: SODIUM CHLORIDE 0.9% FLUSH 10 ML FLUSH IV FLUSH SCH (20:39)
[2017-08-18] MEDS: methylPREDNISolone SOD SUCC 40 MG/1 ML VIAL IV PUSH SCH (20:39)
[2017-08-18] MEDS: LEVOFLOXACIN 500 MG TAB PO SCH (20:44)
[2017-08-18] MEDS ORDERED: HYDROCHLOROTHIAZIDE 12.5 MG CAP PO SCH (21:00)
[2017-08-18] MEDS ORDERED: LOSARTAN 50 MG TAB PO SCH (21:00)
[2017-08-18] MEDS ORDERED: ASPIRIN 81 MG CHEW TAB PO SCH (21:00)
[2017-08-18] MEDS ORDERED: ATORVASTATIN 80 MG TAB PO SCH (21:00)
[2017-08-18] MEDS ORDERED: NON-FORMULARY DRUG (Losartan-Hydrochlorothiazide 1 TAB) PO SCH (21:00)
[2017-08-18] MEDS ORDERED: TERAZOSIN HCL 1 MG CAP PO SCH (21:00)
[2017-08-18] MEDS: ATORVASTATIN 80 MG TAB PO SCH (21:58)
[2017-08-18 23:32] LABS: TROPONIN I 0.08 NG/ML (0.02-0.05)
[2017-08-19] VITALS: BP 157/73; PULSE 88; RESP 16; TEMP 97; O2SAT 100
[2017-08-19 04:00] VITALS: BP 141/67; PULSE 91; RESP 16; TEMP 96.3; O2SAT 92
[2017-08-19 06:22] LABS: AUTOMATED NEUTROPHIL # 2.3 TH/MM3 (1.8-7.7); BASOPHIL % 0.1 % (0.0-2.0); HEMATOCRIT 23.9 % (39.0-51.0); HEMOGLOBIN 8.3 GM/DL (13.0-17.0); LYMPH % 2.3 % (9.0-44.0); LYMPHOCYTE # 0.1 TH/MM3 (1.0-4.8); MEAN CELL VOLUME 86.2 FL (80.0-100.0); MEAN CORPUSCULAR HEMOGLOBIN 30.1 PG (27.0-34.0); MEAN CORPUSCULAR HGB CONC 34.9 % (32.0-36.0); MEAN PLATELET VOLUME 7.4 FL (7.0-11.0); MONO % 1.3 % (0.0-8.0); NEUT % 96.3 % (16.0-70.0); PLATELET COUNT 193 TH/MM3 (150-450); RED BLOOD COUNT 2.77 MIL/MM3 (4.50-5.90); RED CELL DISTRIBUTION WIDTH 16.8 % (11.6-17.2); WHITE BLOOD COUNT 2.4 TH/MM3 (4.0-11.0)
--- NOTE | 2017-08-19 06:56 | MB ---
cc: JAMIE MORTON MD DATE OF CONSULTATION: 08/18/2017 at 6:30 p.m. 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 CLINICAL/RADIOGRAPHIC STAGE: T2 N2 M0; at least stage IIIA. CURRENT TREATMENT The patient has been on concurrent chemoradiotherapy with weekly carboplatin and Taxol; he is status post four weekly doses of chemotherapy with the most recent dose delivered on 08/15/2017. CHIEF COMPLAINT 1. Increasing difficulty breathing at rest and with exertion. Earlier today the patient was noted to have an O2 sat of 78% on room air at the radiation oncology clinic. 2. Sinus congestion. HISTORY OF PRESENT ILLNESS Mr. Danielle is a 76-year-old male with an extensive past history of tobaccoism and a history of COPD and pulmonary fibrosis. In February 2017 the patient was found to have abnormal imaging findings on chest CT scan after undergoing workup for cough. He was noted to have a left upper lobe lung mass associated with AP window lesion measuring at least 3.5 cm. He underwent systemic staging and was found to have no evidence of distal metastatic disease. He subsequently in late April 2017 underwent thoracotomy with exploration, the pleural-based left upper lobe lung nodule / mass was resected, the AP window mass which was thought to either represent a second primary or a metastatic lymph nodes could not be resected because it was directly invading the mediastinum. The patient postoperatively was recommended definitive dose chemoradiotherapy which was initiated in June 2017. Mr. 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 The patient was last seen by me on 08/17/2017 (yesterday) and reported increasing difficulty breathing, loss of energy and generalized fatigue. He was noted to have anemia related to chemotherapy associated myelosuppression and he was recommended red cell transfusion. He declined. The following morning he was seen in the radiation oncology clinic and was noted to be increasingly short of breath. His O2 saturations were noted to be 78% on room air with improvement to close to 90% with 2 liters nasal cannula. He was referred to the emergency department where a CT angiogram was performed earlier today. CT angiogram revealed no evidence of pulmonary embolus. Marked interstitial fibrosis and pulmonary fibrosis was identified. The AP window mass / nodule was noted again as well as additional mediastinal lymph nodes in the pretracheal area. He has been admitted to the hospital and has been initiated on corticosteroids and [id number] nebulizers. PAST MEDICAL HISTORY 1. Poorly differentiated non-small cell carcinoma of the left upper lobe of the lung. 2. Pulmonary fibrosis. PERSONAL HISTORY 1. Of tobaccoism with a greater than 50 pack-year history of smoking obesity. 2. Chronic kidney disease. 3. Borderline diabetes. 4. Peripheral arterial disease. 5. Hyperlipidemia. 6. Hypertension. 7. Benign prosthetic hypertrophy. PAST SURGICAL HISTORY Thoracotomy performed in April 2017 with wedge resection of the left upper lobe lung mass. Right femoral arterial bypass surgery. Tonsillectomy at age of [age]. SOCIAL HISTORY Mr. Mayorga is originally from [facility], he lives at home now in the [facility] with his of 54 years. The patient his have two adult daughters, both of whom still living [place]. 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 FAMILY HISTORY Father at age of 51 from a myocardial infarction, mother at age 92 of advanced age. ALLERGIES NO KNOWN DRUG ALLERGIES. HEALTH CARE MAINTENANCE He is up to: He is up-to-date with colonoscopies which was performed less than 20 years ago. CURRENT INPATIENT MEDICATIONS: 1. Levofloxacin 500 mg p.o. once daily. 2. Methylprednisolone 40 mcg IV q.12 h. 3. Losartan 100 mg p.o. q.h.s. 4. Lactulose 30 mls p.o. daily. 5. Hydrochloride thiazide 12.5 mg p.o. q.h.s. 6. Guaifenesin 60 mEq b.i.d. 7. Ferrous sulfate 200 mg p.o. daily. 8. Fenofibrate 48 mg p.o. daily. 9. Lovenox 40 mcg Subcu q.24 h 10. Senna Colace 1 tablet p.o. b.i.d. 11. Plavix 75 mg daily. 12. Coreg 12.5 mg p.o. b.i.d. 13. azithromycin 250 mg p.o. daily, 14. atorvastatin 80 mcg p.o. daily. 15. Aspirin 81 mcg p.o. daily 16. Amlodipine 10 mcg once a day 17. Azithromycin 250 mcg daily which is now been discontinued in favor of levofloxacin. 18. Temazepam 15 mg p.o. q.h.s. 19. Zofran 4 mg IV q.6 h as needed for nausea and vomiting. REVIEW OF SYSTEMS 13-point patient completed review of systems is obtained the following are the pertinent positives and negatives: CONSTITUTIONAL: The patient reports fatigue, weakness, loss of appetite, he denies fevers or chills. HEAD, EYES, EARS, NOSE, AND THROAT: Denies headaches, blurry vision, difficulty swallowing or soreness in. Does report difficulty swallowing and report soreness in the throat. He reports nausea but denies vomiting. Denies hematochezia or melena. GENITOURINARY: Denies dysuria, hematuria, urinary incontinence. CENTRAL NERVOUS SYSTEM: Denies any focal sensory motor deficits. RESPIRATORY: If I have not noted this already please note dyspnea with exertion and dyspnea at rest, denies pleuritic chest pain but does report a cough. CARDIOVASCULAR SYSTEM: Denies angina-like chest pain, PND or orthopnea. CENTRAL NERVOUS SYSTEM: No focal sensory motor deficits. PHYSICAL EXAMINATION VITAL SIGNS: Temperature 98.2 degrees Fahrenheit, heart rate 98 beats per minute, respiratory rate 16, blood pressure 150/70, O2 sats 93% on 3 liters nasal cannula. GENERAL APPEARANCE: Mr. Mayorga is an elderly male, he is sitting up in bed and appears to be in mild respiratory distress. He is on nasal cannula. HEAD, EYES, EARS, NOSE, AND THROAT: Head atraumatic, normocephalic, conjunctive a are pale sclerae are anicteric, extraocular muscles intact, pupils equal, round, reactive to light and accommodation, oral examination, no pharyngeal erythema. NECK: Neck exam no palpable cervical or supraclavicular adenopathy. LUNGS: Respiratory exam, Distant sounding breath sounds, Fine crepitus without expiratory wheeze but prolonged expiratory phase. CARDIOVASCULAR SYSTEM: Regular rate and rhythm, S1-S2. No obvious murmurs, gallops. ABDOMEN: Protuberant belly, soft and nontender, nondistended palpable organ enlargement. EXTREMITIES: No pretibial edema or calf tenderness. CENTRAL NERVOUS SYSTEM: No focal sensory motor deficits. LABORATORY FINDINGS Blood work dated 08/18/2017: WBC count 3.1, hemoglobin 7.9 gm/dl, hematocrit 23.2%, platelet count is 206, absolute neutrophil count is 2.8. Chemistries: Sodium 138, potassium is 3.5, chloride 101, bicarb 28.4, BUN 20, creatinine 1.22, EGFR 58, random glucose is 127, calcium is 8.8, magnesium is 2.1, total bilirubin 0.5, AST 22, ALT 17, alkaline phosphatase is 54. Troponin I 0.13, BNP 640, albumin is 2.9. IMAGING STUDIES CT angiogram dated 08/18/2016 indicates no evidence of pulmonary embolism. Pleural and parenchymal densities noted along the chest wall. A right suprahilar soft tissue mass is increased in size as well as paratracheal right lymph nodes consistent with malignancy. Emphysematous changes in both lungs are noted and a small left-sided pleural effusion is also noted. ASSESSMENT Mr. Deras is a 76-year-old male with a greater than 50 pack-year history of smoking with a significant pulmonary fibrosis and COPD. 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 He did undergo attempted surgical resection. During the surgical resection. He was noted to have an AP window mass which was adherent to the mediastinum and therefore nonresectable. This lesion was assessed to be either a second primary in (he had a separate left upper lobe lung nodule which was resected) versus AP window lymph node. The patient postoperatively was recommended definitive dose concurrent chemoradiotherapy which was initiated in June 2017, he had received four weekly doses of carboplatin and Taxol with the most recent dose on 08/15/2017. Over the course of treatment he has developed increasing chemotherapy associated myelosuppression, and has become increasingly short of breath especially over the past 1 week. Earlier today he was noted to present to our clinic with O2 sats in the 70s, he was noted to be visibly short of breath and responded only partially to oxygen supplementation. He was therefore referred to the emergency department for further workup and management. The patient has been initiated on corticosteroids intravenously for management of possible COPD exacerbation, he has been initiated on empiric antibiotic therapy with levofloxacin and has been initiated on oxygen supplementation. For management of chemotherapy associated myelosuppression 1 unit packed red blood cell transfusion was delivered earlier today. RECOMMENDATIONS 1. Poorly differentiated non-small cell carcinoma of the left upper lobe of the lung associated with mediastinal lymphadenopathy: I would recommend holding radiation chemotherapy until his acute respiratory issues have recovered. 2. For management of hypoxic respiratory failure. I would recommend continuation of current management with O2 supplementation, corticosteroids and IV antibiotics. He is on various nebulizer treatments as well. 3. I have asked his ux design lead, Dr. Emery Gaines to evaluate him to determine if further optimization of management of his pulmonary fibrosis / COPD is needed. 4. The patient is already on DVT prophylaxis with Lovenox and this ought to continue. 5. The oncology service will follow with you. MD HERNANDO Vann/gaby /10:01 PM /6:06 AM
[2017-08-19 08:00] VITALS: BP 135/68; PULSE 79; RESP 18; TEMP 96.8; O2SAT 95
[2017-08-19 08:13] LABS: % SATURATION IRON PROFILE 45.9 % (20-50); IRON (FE) 164 MCG/DL (65-175); TOTAL IRON BINDING CAPACITY 357 MCG/DL (250-450)
[2017-08-19 08:16] LABS: ALBUMIN 2.9 GM/DL (3.4-5.0); ALKALINE PHOSPHATASE 57 U/L (45-117); ALT (GPT) 18 U/L (12-78); AST (GOT) 15 U/L (15-37); BICARBONATE 26.2 MEQ/L (21.0-32.0); BLOOD UREA NITROGEN 23 MG/DL (7-18); CHLORIDE 100 MEQ/L (98-107); CREATININE 1.28 MG/DL (0.60-1.30); GLOMERULAR FILTRATION RATE 55 ML/MIN (>89); GLUCOSE,RANDOM 134 MG/DL (74-106); SODIUM (NA) 136 MEQ/L (136-145); TOTAL BILIRUBIN ADULT 0.8 MG/DL (0.2-1.0); TOTAL PROTEIN 7.3 GM/DL (6.4-8.2); TROPONIN I 0.11 NG/ML (0.02-0.05)
[2017-08-19 08:17] LABS: CALCIUM 8.7 MG/DL (8.5-10.1)
[2017-08-19 08:29] VITALS: O2SAT 92
[2017-08-19] MEDS: RESP: ALBUTEROL 2.5 MG/IPRATROPIUM 0.5 MG NEB (SCH) NEB ×2 (08:29→12:40)
--- NOTE | 2017-08-19 08:34 | PD.ONC.PN ---
Subjective Subjective Remarks Afebrile overnight. "I feel much better." He states he is able to walk to the bathroom on O2 without feeling short of breath. No dizziness. Wants to go home. Objective Data Date Time Temp Pulse Resp B/P (MAP) Pulse Ox O2 Delivery O2 Flow Rate FiO2 08/19/17 04:00 96.3 91 16 141/67 (91) 92 08/19/17 00:00 97.0 88 16 157/73 (101) 100 08/18/17 23:46 90 08/18/17 23:27 94 08/18/17 22:40 93 30 08/18/17 20:27 93 Nasal Cannula 3.00 08/18/17 20:00 98.2 98 16 150/70 (96) 93 08/18/17 17:55 98.8 96 18 151/70 93 08/18/17 16:10 97.5 84 17 148/71 93 08/18/17 15:41 99.0 82 18 145/81 93 08/18/17 14:40 80 20 132/87 (102) 95 Nasal Cannula 3.00 08/18/17 14:24 93 Nasal Cannula 3.00 08/18/17 12:28 96 Nasal Cannula 2.00 08/18/17 12:28 87 18 133/77 (95) 96 Nasal Cannula 2.00 08/18/17 12:28 16 96 Nasal Cannula 2.00 08/18/17 12:28 16 96 Nasal Cannula 2.00 08/18/17 11:54 98.2 84 16 139/64 (89) 89 08/19/17 08/19/17 08/19/17 07:00 15:00 23:00 Intake Total 2800 ml Balance 2800 ml Result Diagram: 08/19/17 0550 08/19/17 0725 Laboratory Results Laboratory Tests Test 08/18/17 12:21 08/18/17 22:30 08/19/17 05:50 08/19/17 07:25 White Blood Count 3.1 TH/MM3 2.4 TH/MM3 Red Blood Count 2.69 MIL/MM3 2.77 MIL/MM3 Hemoglobin 7.9 GM/DL 8.3 GM/DL Hematocrit 23.2 % 23.9 % Mean Corpuscular Volume 86.2 FL 86.2 FL Mean Corpuscular Hemoglobin 29.4 PG 30.1 PG Mean Corpuscular Hemoglobin Concent 34.1 % 34.9 % Red Cell Distribution Width 17.1 % 16.8 % Platelet Count 206 TH/MM3 193 TH/MM3 Mean Platelet Volume 7.3 FL 7.4 FL Neutrophils (%) (Auto) 89.3 % 96.3 % Lymphocytes (%) (Auto) 4.3 % 2.3 % Monocytes (%) (Auto) 5.6 % 1.3 % Eosinophils (%) (Auto) 0.3 % 0.0 % Basophils (%) (Auto) 0.5 % 0.1 % Neutrophils # (Auto) 2.8 TH/MM3 2.3 TH/MM3 Lymphocytes # (Auto) 0.1 TH/MM3 0.1 TH/MM3 Monocytes # (Auto) 0.2 TH/MM3 0.0 TH/MM3 Eosinophils # (Auto) 0.0 TH/MM3 0.0 TH/MM3 Basophils # (Auto) 0.0 TH/MM3 0.0 TH/MM3 CBC Comment DIFF FINAL DIFF FINAL Differential Comment Prothrombin Time 10.9 SEC Prothromb Time International Ratio 1.1 RATIO Activated Partial Thromboplast Time 27.9 SEC Blood Urea Nitrogen 20 MG/DL 23 MG/DL Creatinine 1.22 MG/DL 1.28 MG/DL Random Glucose 127 MG/DL 134 MG/DL Total Protein 7.0 GM/DL 7.3 GM/DL Albumin 2.9 GM/DL 2.9 GM/DL Calcium Level 8.8 MG/DL 8.7 MG/DL Magnesium Level 2.1 MG/DL Alkaline Phosphatase 54 U/L 57 U/L Aspartate Amino Transf (AST/SGOT) 22 U/L 15 U/L Alanine Aminotransferase (ALT/SGPT) 17 U/L 18 U/L Total Bilirubin 0.5 MG/DL 0.8 MG/DL Sodium Level 138 MEQ/L 136 MEQ/L Potassium Level 3.5 MEQ/L 3.8 MEQ/L Chloride Level 101 MEQ/L 100 MEQ/L Carbon Dioxide Level 28.4 MEQ/L 26.2 MEQ/L Anion Gap 9 MEQ/L 10 MEQ/L Estimat Glomerular Filtration Rate 58 ML/MIN 55 ML/MIN Troponin I 0.13 NG/ML 0.08 NG/ML 0.11 NG/ML B-Type Natriuretic Peptide 640 PG/ML Total Creatine Kinase 128 U/L 98 U/L Iron Level 164 MCG/DL Total Iron Binding Capacity 357 MCG/DL Percent Iron Saturation 45.9 % Imaging Studies Last 24 hours Impressions Chest X-Ray 08/18/17 1203 Signed Impressions: Service Date/Time: Friday, August 18, 2017 12:20 - CONCLUSION: 1. New mild patchy opacity at the right lung base with no consolidation. 2. Chronic scarring again noted in the left lung without significant change. 3. Left suprahilar mass without significant change. 4. Interval placement of right-sided implantable port catheter. Agus Esparza MD CT Angiography 08/18/17 1203 Signed Impressions: Service Date/Time: Friday, August 18, 2017 13:33 - CONCLUSION: Negative for pulmonary embolization. Pleural-parenchymal density left anterior chest previously biopsied remains present in the right suprahilar soft tissue mass has increased in size as well as pretracheal and right paratracheal adenopathy consistent with malignancy. There is intrinsic emphysematous changes in both lungs and there is a small left pleural effusion. Bolivar Cardenas MD Administered Medications Medications (Trade) Dose Ordered Sig/Sandy Route PRN Reason Start Time Stop Time Status Last Admin Dose Admin Aspirin (Aspirin Chew) 81 mg HS PO 08/18/17 21:00 08/18/17 20:38 Carvedilol (Coreg) 12.5 mg BID PO 08/18/17 21:00 08/18/17 20:38 Sodium Chloride (NS Flush) 2 ml BID IV FLUSH 08/18/17 21:00 08/18/17 20:39 Temazepam (Restoril) 15 mg HS PRN PO INSOMNIA 08/18/17 15:00 08/18/17 22:30 Acetaminophen/ Hydrocodone Bitart (Turton 7.5-325 Mg) 1 tab Q4H PRN PO PAIN SCALE 6 TO 10 08/18/17 15:00 08/19/17 01:21 Senna/Docusate Sodium (Yu-Colace) 1 tab BID PO 08/18/17 21:00 08/18/17 20:38 Methylprednisolone Sodium Succinate (SoluMEDROL INJ) 40 mg Q12HR IV PUSH 08/18/17 21:00 08/18/17 20:39 Albuterol/ Ipratropium (Duoneb Neb) 1 ampule Q6HR WHILE AWAKE NEB NEB 08/18/17 20:00 08/18/17 20:27 Losartan Potassium (Cozaar) 100 mg HS PO 08/18/17 21:00 08/18/17 20:38 Hydrochlorothiazide (Microzide) 12.5 mg HS PO 08/18/17 21:00 08/18/17 20:38 Levofloxacin (Levaquin) 500 mg DAILY PO 08/18/17 20:00 08/18/17 20:44 Guaifenesin (Mucinex Er) 600 mg BID PO 08/18/17 21:00 08/18/17 20:38 Atorvastatin Calcium (Lipitor) 80 mg DAILY PO 08/18/17 21:00 08/18/17 21:58 Objective Remarks GENERAL: Pleasant elderly male, sitting up in chair next to bed eating breakfast. On 3L O2 via NC. He appears comfortable and in nad. SKIN: Warm and dry. HEAD: Normocephalic. EYES: No scleral icterus. No injection or drainage. NECK: Supple, trachea midline. CARDIOVASCULAR: Regular rate and rhythm RESPIRATORY: occasional wheeze. GASTROINTESTINAL: Abdomen soft, non-tender, nondistended. EXTREMITIES: No cyanosis, NEUROLOGICAL: No obvious focal deficit. Awake, alert, and oriented x3. Assessment/Plan Assessment 76y/o male with NSCLC and h/o COPD/pulmonary fibrosis, admitted with dyspnea. Plan 1. NSCLC: will hold XRT/chemotherapy until respiratory symptoms improved 2. dyspnea: patient is feeling significantly improved on IV steroids, Levaquin and O2. He states he already has supplemental O2 available at home. If pulmonology agrees, the patient could be discharged home after they see him today on PO steroids and O2. 3. monitor CBC, no further transfusion needed at present. Kaley Nava Aug 19, 2017 08:34 Swetha Oropeza MD Aug 19, 2017 16:48
[2017-08-19] MEDS ORDERED: CLOPIDOGREL 75 MG TAB PO SCH (09:00)
[2017-08-19] MEDS: SODIUM CHLORIDE 0.9% FLUSH 10 ML FLUSH IV FLUSH SCH (09:00)
[2017-08-19] MEDS ORDERED: TAMSULOSIN HCL 0.4 MG CAP PO SCH (09:00)
[2017-08-19] MEDS ORDERED: ATORVASTATIN 80 MG TAB PO SCH (09:00)
[2017-08-19] MEDS ORDERED: AZITHROMYCIN 250 MG TAB PO SCH (09:00)
[2017-08-19] MEDS ORDERED: FENOFIBRATE 48 MG TAB PO SCH (09:00)
[2017-08-19] MEDS ORDERED: ENOXAPARIN SODIUM 40 MG/0.4 ML SYRINGE SQ SCH (09:00)
[2017-08-19] MEDS ORDERED: FERROUS SULFATE 300 MG /5ML UDC PO SCH (09:00)
[2017-08-19] MEDS: guaiFENesin E.R. 600 MG TAB PO SCH (10:21)
[2017-08-19] MEDS: CARVEDILOL 12.5 MG TAB PO SCH (10:21)
[2017-08-19] MEDS: ATORVASTATIN 80 MG TAB PO SCH (10:21)
[2017-08-19] MEDS: DOCUSATE SODIUM 50 MG/SENNA 8.6 MG TAB PO SCH (10:22)
[2017-08-19] MEDS: LEVOFLOXACIN 500 MG TAB PO SCH (10:23)
[2017-08-19] MEDS: methylPREDNISolone SOD SUCC 40 MG/1 ML VIAL IV PUSH SCH (10:24)
[2017-08-19] MEDS ORDERED: LEVA500T33 PO (11:57)
[2017-08-19] MEDS ORDERED: PRED20 PO (11:57)
[2017-08-19] MEDS ORDERED: SYMB160A INH (11:58)
[2017-08-19] MEDS ORDERED: VENTAER INH (11:58)
[2017-08-19 12:00] VITALS: BP 137/67; PULSE 83; RESP 18; TEMP 97.2; O2SAT 94
--- NOTE | 2017-08-19 12:07 | HHI.PR ---
Subjective Remarks Follow up for sq. cell lung cancer, COPD exacerbation. Patient is currently doing well. He feels that he is back to his baseline. He walked with PT without any difficulty. He has a CPAP machine at home and he has supplemental O2. Objective Vitals Vital Signs Date Time Temp Pulse Resp B/P (MAP) Pulse Ox O2 Delivery O2 Flow Rate FiO2 08/19/17 08:29 92 Nasal Cannula 3.00 08/19/17 08:29 92 Nasal Cannula 3.00 08/19/17 08:00 96.8 79 18 135/68 (90) 95 08/19/17 04:00 96.3 91 16 141/67 (91) 92 08/19/17 00:00 97.0 88 16 157/73 (101) 100 08/18/17 23:46 90 08/18/17 23:27 94 08/18/17 22:40 93 30 08/18/17 20:27 93 Nasal Cannula 3.00 08/18/17 20:00 98.2 98 16 150/70 (96) 93 08/18/17 17:55 98.8 96 18 151/70 93 08/18/17 16:10 97.5 84 17 148/71 93 08/18/17 15:41 99.0 82 18 145/81 93 08/18/17 14:40 80 20 132/87 (102) 95 Nasal Cannula 3.00 08/18/17 14:24 93 Nasal Cannula 3.00 08/18/17 12:28 96 Nasal Cannula 2.00 08/18/17 12:28 87 18 133/77 (95) 96 Nasal Cannula 2.00 08/18/17 12:28 16 96 Nasal Cannula 2.00 08/18/17 12:28 16 96 Nasal Cannula 2.00 I/O 08/18/17 08/18/17 08/18/17 08/19/17 08/19/17 08/19/17 07:00 15:00 23:00 07:00 15:00 23:00 Intake Total 410 ml 2800 ml Output Total 480 ml Balance -70 ml 2800 ml Intake Oral 2800 ml Packed Cells 400 ml Blood Product IV Normal Saline Flush 10 ml Output Urine Total 480 ml # Voids 6 Result Diagram: 08/19/17 0550 08/19/17 0725 Imaging Last Impressions Chest X-Ray 08/18/17 1203 Signed Impressions: Service Date/Time: Friday, August 18, 2017 12:20 - CONCLUSION: 1. New mild patchy opacity at the right lung base with no consolidation. 2. Chronic scarring again noted in the left lung without significant change. 3. Left suprahilar mass without significant change. 4. Interval placement of right-sided implantable port catheter. Agus Esparza MD CT Angiography 08/18/17 1203 Signed Impressions: Service Date/Time: Friday, August 18, 2017 13:33 - CONCLUSION: Negative for pulmonary embolization. Pleural-parenchymal density left anterior chest previously biopsied remains present in the right suprahilar soft tissue mass has increased in size as well as pretracheal and right paratracheal adenopathy consistent with malignancy. There is intrinsic emphysematous changes in both lungs and there is a small left pleural effusion. Bolivar Cardenas MD Objective Remarks GENERAL: Alert, Oriented x 3, NAD. SKIN: Warm and dry. HEAD: Normocephalic. EYES: No scleral icterus. No injection or drainage. NECK: Supple, trachea midline. No JVD or lymphadenopathy. CARDIOVASCULAR: Regular rate and rhythm without murmurs, gallops, or rubs. RESPIRATORY: Moderate air entry. No wheezing appreciated. No accessory muscle use. GASTROINTESTINAL: Abdomen soft, non-tender, nondistended. MUSCULOSKELETAL: No cyanosis, or edema. BACK: Nontender without obvious deformity. No CVA tenderness. Procedures None. A/P Problem List: (1) COPD with exacerbation ICD Code: J44.1 - Chronic obstructive pulmonary disease with (acute) exacerbation (2) Respiratory failure with hypoxia ICD Code: J96.91 - Respiratory failure, unspecified with hypoxia (3) Anemia, chronic disease ICD Code: D63.8 - Anemia in other chronic diseases classified elsewhere (4) Squamous cell carcinoma of left lung ICD Code: C34.92 - Malignant neoplasm of unspecified part of left bronchus or lung Assessment and Plan 76-year-old man with COPD with exacerbation Respiratory failure with hypoxia CT angiography noted and review by me without any evidence of pulmonary embolism Chest x-ray noted new mild patchy opacity at the right lung however without any consolidation Continue abx, steroid, breathing tx. Oncology recommended Pulmonology consult. I discussed with Dr. Emerson on (he is covering for Dr. Gaines). Since patient is doing well and back to his baseline, Dr. Emerson agreed with our plan to d/c patient with outpatient follow up with Dr. Gaines. Anemia of chronic disease s/p 1 unit PRBCs transfusion. Patient is advised to continue taking Iron sulfate and follow up with Heme/onc. Elevated Troponin I Patient denies any chest pain. Troponins were 0.13, 0.08, 0.11. Possibly due to CKD, supply demand. History of hypertension Resume Coreg, losartan-chlorothiazide, amlodipine Hyperlipidemia Resume Lipitor, Tricor History of squamous cell carcinoma of the lung With follow-up outpatient with oncology for plan XRT 08/22/17 I also discussed with patient regarding his use of Aspirin 81mg Qday and Plavix 75mg Qday. He had a history of PAD. However, I do feel that Aspirin can be dropped. He will discuss with his Heme/onc physician as well as vascular surgeon. DVT prophylaxis: Lovenox Discharge patient to home Condition on discharge: Improved Heart healthy Diet as tolerated Ad Georgina activity Rx written: - Albuterol - Symbicort - Levaquin 500mg Qday X 7 - Prednisone 20mg BID X 5 days. Follow-up with primary care physician PRN. Pulmonology within one week. Mary Moore DO Aug 19, 2017 12:07
--- NOTE | 2017-08-19 12:52 | EKG ---
Date Performed: 08/18/2017 Time Performed: 12:59:39 PTAGE: 76 years EKG: Sinus rhythm MODERATE INTRAVENTRICULAR CONDUCTION DELAY NONSPECIFIC ST & T-WAVE ABNORMALITY BORDERLINE ECG Compar ed to PREVIOUS TRACING , nonspecific ST changes are slightly more prominent. PREVIOUS TRACIN08/18/2017 12.45 DOCTOR: Marquis Rios Interpretating Date/Time 08/19/2017 12:51:54
--- NOTE | 2017-08-19 12:54 | EKG ---
Date Performed: 08/18/2017 Time Performed: 20:23:53 PTAGE: 76 years EKG: SINUS TACHYCARDIA WITH PVCs MARKED LEFT AXIS DEVIATION MODERATE INTRAVENTRICULAR CONDUCTION DELAY ST DEVIATION AND MODERATE T-WAVE ABNORMALITY, CONSIDER LATERAL ISCHEMIA ABNORMAL ECG Compared to PREVIOUS TRACING , anterolateral ST changes are notably more prominent, consider ischemia . PREVIOUS TRACIN08/18/2017 12.59 DOCTOR: Marquis Rios Interpretating Date/Time 08/19/2017 12:53:36
--- NOTE | 2017-08-19 12:56 | EKG ---
Date Performed: 08/19/2017 Time Performed: 01:13:48 PTAGE: 76 years EKG: Sinus arrhythmia. Left axis deviation Anterolateral ST-T changes suggest myocardial injury/ ischemia Abnormal ECG Compared to PREVIOUS TRACING , previously seen anterolateral ST depression has improved. PREVIOUS TRA CIN08/18/2017 20.23.53 DOCTOR: Marquis Rios Interpretating Date/Time 08/19/2017 12:55:37
== END 2017-08-19 15:13 | disposition home or self-care (01) | DRG 189 ==
LOC: NEPC 11:42 → NEDA 14:34 → N06B 16:09 → N05B 17:41 → N06B 17:41
PROVIDERS: ADMIT Hospitalist; ATTEND Hospitalist
PROC: 3E0F7GC Introduction of Other Therapeutic Substance into Respiratory Tract, Via Natural or Artificial Opening (ICD-10-PCS; principal; 2017-08-18)
PROC: 30233N1 Transfusion of Nonautologous Red Blood Cells into Peripheral Vein, Percutaneous Approach (ICD-10-PCS; 2017-08-18)
DX: J96.91 Respiratory failure, unspecified with hypoxia (principal); C34.12 Malignant neoplasm of upper lobe, left bronchus or lung; J44.1 Chronic obstructive pulmonary disease with (acute) exacerbation; J90 Pleural effusion, not elsewhere classified; D64.81 Anemia due to antineoplastic chemotherapy; J84.10 Pulmonary fibrosis, unspecified; Z99.81 Dependence on supplemental oxygen; D63.8 Anemia in other chronic diseases classified elsewhere; I12.9 Hypertensive chronic kidney disease with stage 1 through stage 4 chronic kidney disease, or unspecified chronic kidney disease; T45.1X5A Adverse effect of antineoplastic and immunosuppressive drugs, initial encounter; N18.3 Chronic kidney disease, stage 3 (moderate); R74.8 Abnormal levels of other serum enzymes; G47.33 Obstructive sleep apnea (adult) (pediatric); M19.90 Unspecified osteoarthritis, unspecified site; I65.29 Occlusion and stenosis of unspecified carotid artery; I25.10 Atherosclerotic heart disease of native coronary artery without angina pectoris; E78.5 Hyperlipidemia, unspecified; I73.9 Peripheral vascular disease, unspecified; Z82.49 Family history of ischemic heart disease and other diseases of the circulatory system; K21.9 Gastro-esophageal reflux disease without esophagitis; H91.90 Unspecified hearing loss, unspecified ear; R73.03 Prediabetes; Z87.891 Personal history of nicotine dependence; Z86.010 Personal history of colon polyps
CPT/HCPCS: 36430; 71045; 71275; 80053; 82550; 83540; 83550; 83735; 83880; 84484; 85025; 85610; 85730; 86850; 86900; 86901; 86920; 93005; 94002; 94640; 94664; J1642; J1650; J2920; J2930; J7050; P9016; Q9967

== ENCOUNTER 2017-11-26 05:17 | Inpatient (IN) | payer OTHER, MEDICARE ==
[2017-11-26] VITALS (30 sets, daily range): BP systolic 90–184; BP diastolic 53–101; PULSE 82–143; RESP 14–51; TEMP 97.8–100.9; O2SAT 45–100
[~2017-11-26] VITALS: Ht 177.8 cm; Wt 89.4 kg
[~2017-11-26 05:17] MED LIST changes: +LEVA500T33 PO; +PRED20 PO; +SYMB160A INH; +VENTAER INH
[2017-11-26] MEDS ORDERED: SODIUM CHLORIDE 0.9% FLUSH 10 ML FLUSH IVF PRN ×2 (05:30→17:30)
--- NOTE | 2017-11-26 05:33 | PD ---
HPI Chief Complaint: Respiratory Distress Time Seen by Provider: 05:20 Travel History International Travel<30 days: No Contact w/Intl Traveler<30days: No Traveled to known affect area: No History of Present Illness HPI The patient is a 77-year-old male who has a history of lung cancer who complains of sudden onset of shortness of breath at 4:00 this morning. He denies any fever or chills. He is not on any anticoagulants. His straight line press setter is Ghanshyam gaines and his oncologist is Dr. Fisher. [facility] Past Medical History Hx Anticoagulant Therapy: No Cancer: Yes (lung CA) Cardiovascular Problems: No (cholesterol, CAD, stent x 2, carotid, femoral, iliac artery stenosis) High Cholesterol: Yes Chemotherapy: Yes COPD: Yes Cerebrovascular Accident: No Diabetes: No Diminished Hearing: Yes (hearing aid) Endocrine: No Gastrointestinal Disorders: Yes (GERD, polyps, gastritis) GERD: Yes Genitourinary: No Hepatitis: No Hiatal Hernia: No Hypertension: Yes Immune Disorder: No Musculoskeletal: No Neurologic: No Psychiatric: No Reproductive: No Respiratory: Yes (lung ca, pulmonary fibrosis) Radiation Therapy: Yes Sleep Apnea: Yes (CPAP at HS) Thyroid Disease: No Past Surgical History Abdominal Surgery: No AICD: No Body Medical Devices: stents to right leg and lower abdomen, RIGHT CHEST PORT Cardiac Surgery: No Ear Surgery: No Endocrine Surgery: No Eye Surgery: No Genitourinary Surgery: No Gynecologic Surgery: No Hysterectomy: No Joint Replacement: No Oral Surgery: Yes (tonsillectomy 1950) Pacemaker: No Thoracic Surgery: Yes Other Surgery: Yes (POLYPS 4 YEARS AGO) Social History Alcohol Use: Yes (2 water glasses of wine daily) Tobacco Use: No (QUIT 3 YEARS) Substance Use: No Allergies-Medications (Allergen,Severity, Reaction): Coded Allergies: No Known Allergies (Unverified Allergy, Unknown, 11/26/17) Reported Meds & Prescriptions Reported Meds & Active Scripts Active Ventolin Hfa 18 GM Inh (Albuterol Sulfate) 90 Mcg/Act Aer 2 Puff INH Q4-6H PRN Prednisone 20 Mg Tab 20 Mg PO BID Coreg (Carvedilol) 12.5 Mg Tab 12.5 Mg PO BID Reported Anoro Ellipta Inh (Umeclidinium/Vilanterol) 62.5-25 Mcg/Act Aero 1 Puff INH DAILY Zolpidem (Zolpidem Tartrate) 10 Mg Tab 10 Mg PO HS PRN Atorvastatin (Atorvastatin Calcium) 80 Mg Tab 80 Mg PO HS Co Q-10 (Coenzyme Q10 (Ubidecarenone)) 200 Mg Cap 1 Tab PO BID G-Gswhdt-o-Cysteine (Acetylcysteine (Nutrient)) 600 Mg Cap 1 Tab PO BID D3 Super Strength (Cholecalciferol) 2,000 Unit Cap 2,000 Units PO DAILY Feosol (Ferrous Sulfate) 325 Mg (65 Mg Iron) Tab 1 Tab PO DAILY Fenofibrate 54 Mg Tab 54 Mg PO DAILY Multiple Vitamin 1 Tab 1 Tab PO DAILY Pantoprazole (Pantoprazole Sodium) 40 Mg Tab 40 Mg PO DAILY Plavix (Clopidogrel Bisulfate) 75 Mg Tab 75 Mg PO DAILY Aspirin Low Dose (Aspirin) 81 Mg Chew 81 Mg PO HS Review of Systems Except as stated in HPI: all other systems reviewed are Neg Physical Exam Narrative GENERAL: The patient is alert, oriented 3 in severe respiratory distress. His temperature is 100.9 tympanic, pulse 143, respirations 40, blood pressure 131/ 101 with oximetry running around 73. The oximetry was taken on BiPAP with nonrebreather. SKIN: Focused skin assessment warm/dry. HEAD: Atraumatic. Normocephalic. EYES: Pupils equal and round. No scleral icterus. No injection or drainage. ENT: No nasal bleeding or discharge. Mucous membranes pink and moist. NECK: Trachea midline. No JVD. CARDIOVASCULAR: Regular rate and rhythm. No murmur appreciated. RESPIRATORY: No accessory muscle use. Scattered rhonchi heard in all lung bowles. Breath sounds equal bilaterally. GASTROINTESTINAL: Abdomen soft, non-tender, nondistended. Hepatic and splenic margins not palpable. MUSCULOSKELETAL: No obvious deformities. No clubbing. No cyanosis. No edema. NEUROLOGICAL: Awake and alert. No obvious cranial nerve deficits. Motor grossly within normal limits. Normal speech. PSYCHIATRIC: The patient is extremely anxious; insight and judgment normal. Data Data Last Documented VS Vital Signs Date Time Temp Pulse Resp B/P (MAP) Pulse Ox O2 Delivery O2 Flow Rate FiO2 11/26/17 06:14 132 40 112/56 (74) 94 BiPAP 11/26/17 05:35 100 11/26/17 05:17 100.9 Orders Orders Chest, Single Ap (11/26/17 ) Complete Blood Count With Diff (11/26/17 05:20) Blood Culture (11/26/17 05:20) Iv Access Insert/Monitor (11/26/17 05:20) Ecg Monitoring (11/26/17 05:20) Oxygen Administration (11/26/17 05:20) Oximetry (11/26/17 05:20) Electrocardiogram (11/26/17 05:20) Comprehensive Metabolic Panel (11/26/17 05:20) B-Type Natriuretic Peptide (11/26/17 05:20) Magnesium (Mg) (11/26/17 05:20) Troponin I (11/26/17 05:20) Arterial Blood Gas (Abg) (11/26/17 05:20) Urinalysis - C+S If Indicated (11/26/17 05:20) Sodium Chloride 0.9% Flush (Ns Flush) (11/26/17 05:30) Albuterol-Ipratropium Neb (Duoneb Neb) (11/26/17 05:30) D-Dimer (11/26/17 05:33) Furosemide Inj (Lasix Inj) (11/26/17 05:45) Lactic Acid (11/26/17 05:47) Admit Order (Ed Use Only) (11/26/17 05:58) Labs Laboratory Tests Test 11/26/17 05:20 11/26/17 05:35 11/26/17 06:20 White Blood Count 17.5 TH/MM3 Red Blood Count 3.53 MIL/MM3 Hemoglobin 11.1 GM/DL Hematocrit 33.0 % Mean Corpuscular Volume 93.5 FL Mean Corpuscular Hemoglobin 31.4 PG Mean Corpuscular Hemoglobin Concent 33.5 % Red Cell Distribution Width 17.5 % Platelet Count 349 TH/MM3 Mean Platelet Volume 6.6 FL Neutrophils (%) (Auto) 86.3 % Lymphocytes (%) (Auto) 5.7 % Monocytes (%) (Auto) 2.1 % Eosinophils (%) (Auto) 5.8 % Basophils (%) (Auto) 0.1 % Neutrophils # (Auto) 15.1 TH/MM3 Lymphocytes # (Auto) 1.0 TH/MM3 Monocytes # (Auto) 0.4 TH/MM3 Eosinophils # (Auto) 1.0 TH/MM3 Basophils # (Auto) 0.0 TH/MM3 CBC Comment DIFF FINAL Differential Comment Blood Urea Nitrogen 30 MG/DL Creatinine 1.60 MG/DL Random Glucose 293 MG/DL Total Protein 7.5 GM/DL Albumin 2.8 GM/DL Calcium Level 8.8 MG/DL Magnesium Level 2.0 MG/DL Alkaline Phosphatase 65 U/L Aspartate Amino Transf (AST/SGOT) 23 U/L Alanine Aminotransferase (ALT/SGPT) 24 U/L Total Bilirubin 0.8 MG/DL Sodium Level 140 MEQ/L Potassium Level 4.4 MEQ/L Chloride Level 104 MEQ/L Carbon Dioxide Level 19.5 MEQ/L Anion Gap 17 MEQ/L Estimat Glomerular Filtration Rate 42 ML/MIN Troponin I 0.11 NG/ML B-Type Natriuretic Peptide 826 PG/ML Blood Gas Puncture Site LT RADIAL Blood Gas Patient Temperature 98.6 Blood Gas HCO3 20 mmol/L Blood Gas Base Excess -4.8 mmol/L Blood Gas Oxygen Saturation 92 % Arterial Blood pH 7.33 Arterial Blood Partial Pressure CO2 40 mmHG Arterial Blood Partial Pressure O2 87 mmHG Arterial Blood Oxygen Content 14.4 Vol % Arterial Blood Carboxyhemoglobin 2.5 % Arterial Blood Methemoglobin 1.0 % Blood Gas Hemoglobin 11.1 G/DL Oxygen Delivery Device BIPAP Blood Gas Ventilator Setting [id number] Blood Gas Inspired Oxygen 100 % Urine Color YELLOW Urine Turbidity CLEAR Urine pH 5.5 Urine Specific [place] 1.020 Urine Protein TRACE mg/dL Urine Glucose (UA) NEG mg/dL Urine Ketones NEG mg/dL Urine Occult Blood SMALL Urine Nitrite NEG Urine Bilirubin NEG Urine Urobilinogen 0.2 MG/DL Urine Leukocyte Esterase NEG Urine RBC 0-3 /hpf Urine WBC 0-2 /hpf Urine Squamous Epithelial Cells 0-5 /hpf Microscopic Urinalysis Comment CULT NOT INDICATED MDM Medical Decision Making Medical Screen Exam Complete: Yes Emergency Medical Condition: Yes Medical Record Reviewed: Yes Interpretation(s) The EKG shows sinus tachycardia with a rate of 131 and left anterior fascicular block. There is questionable ST elevation V2 through V5. The blood gases show HCO3 20, O2 sat 92%, pH 7.33 with PO2 87 and CO2 40 and hemoglobin 11.1. This is off BiPAP at 100% with IPAP 15 and PEEP 5. Differential Diagnosis Pulmonary embolus, pneumonia, pleural effusion, bronchitis, electrolyte disorder , hypoxemia, pulmonary fibrosis Narrative Course It is now 0700 and the patient is doing much better with an oximetry of 94%. Dr. Alyssia Polk has come and evaluated and is treating the patient at this time. The patient will be admitted to the intensive care unit here at [place]. Physician Communication Physician Communication I discussed the patient with Dr. Abel Sheikh and Alyssia Polk. Also discussed the patient with Dr. Carlin who is covering for Dr. Ghanshyam Gaines. Diagnosis Primary Impression: Interstitial edema Additional Impressions: Respiratory failure with hypoxia Lung cancer Pulmonary fibrosis Salvador Blackwood MD Nov 26, 2017 05:33
[2017-11-26] MEDS ORDERED: FUROSEMIDE 100 MG/10 ML VIAL IV PUSH ONE (05:45)
[2017-11-26] MEDS: RESP: ALBUTEROL 2.5 MG/IPRATROPIUM 0.5 MG NEB (SCH) INH ×5 (05:49→20:55)
--- NOTE | 2017-11-26 05:49 | RADRPT ---
EXAM DATE/TIME: 11/26/2017 05:18 [facility] COMPARISON: CHEST SINGLE AP, August 18, 2017, 12:20. INDICATIONS : Short of breath MEDICAL HISTORY : Chronic obstructive pulmonary disease. Carcinoma, lung. Hypertension. Cardiovascular disease. p ulmoary fibrosis SURGICAL HISTORY : [place]. ENCOUNTER: Initial ACUITY: 1 day PAIN SCORE: Non-responsive. LOCATION: Bilateral chest FINDINGS: [id number] catheter tip projects over the distal superior vena cava. Increasing patchy interstiti al infiltrates in the mid and lower lungs without consolidation. Both hemidiaphragms remain discerni ble. The heart is prominent, similar to prior. CONCLUSION: Interval development of patchy diffuse bilateral interstitial infiltrates. Gus Carmona MD on November 26, 2017 at 5:45 Board Certified Radiologist. This report was verified electronically.
[2017-11-26] MEDS ORDERED: UMEC1AER INH (06:00)
[2017-11-26 06:08] LABS: AUTOMATED NEUTROPHIL # 15.1 TH/MM3 (1.8-7.7); BASOPHIL % 0.1 % (0.0-2.0); EOSINOPHIL % 5.8 % (0.0-4.0); HEMOGLOBIN 11.1 GM/DL (13.0-17.0); LYMPH % 5.7 % (9.0-44.0); MEAN CELL VOLUME 93.5 FL (80.0-100.0); MEAN CORPUSCULAR HEMOGLOBIN 31.4 PG (27.0-34.0); MEAN CORPUSCULAR HGB CONC 33.5 % (32.0-36.0); MEAN PLATELET VOLUME 6.6 FL (7.0-11.0); MONO % 2.1 % (0.0-8.0); MONOCYTE # 0.4 TH/MM3 (0-0.9); NEUT % 86.3 % (16.0-70.0); PLATELET COUNT 349 TH/MM3 (150-450); RED BLOOD COUNT 3.53 MIL/MM3 (4.50-5.90); RED CELL DISTRIBUTION WIDTH 17.5 % (11.6-17.2); WHITE BLOOD COUNT 17.5 TH/MM3 (4.0-11.0)
[2017-11-26 06:14] LABS: CHLORIDE 104 MEQ/L (98-107); SODIUM (NA) 140 MEQ/L (136-145)
[2017-11-26 06:18] LABS: ALBUMIN 2.8 GM/DL (3.4-5.0); BICARBONATE 19.5 MEQ/L (21.0-32.0); CALCIUM 8.8 MG/DL (8.5-10.1)
[2017-11-26 06:29] LABS: BILIRUBIN, URINE NEG (NEG); BLOOD, URINE SMALL (NEG); GLUCOSE,URINE NEG (NEG); KETONE, URINE NEG (NEG); NITRITE,URINE NEG (NEG); PH, URINE 5.5 (5.0-8.5); URINE COLOR YELLOW (YELLW/STRAW); URINE LEUKOCYTE ESTERASE NEG (NEG)
[2017-11-26 06:41] LABS: RBC, URINE 0-3 /hpf (0-3); SQUAMOUS EPITHELIAL CELL URINE 0-5 /hpf (0-5); WBC, URINE 0-2 /hpf (0-5)
[2017-11-26 06:46] LABS: ALKALINE PHOSPHATASE 65 U/L (45-117); ALT (GPT) 24 U/L (12-78); AST (GOT) 23 U/L (15-37); BLOOD UREA NITROGEN 30 MG/DL (7-18); GLOMERULAR FILTRATION RATE 42 ML/MIN (>89); GLUCOSE,RANDOM 293 MG/DL (74-106); TOTAL BILIRUBIN ADULT 0.8 MG/DL (0.2-1.0); TOTAL PROTEIN 7.5 GM/DL (6.4-8.2); TROPONIN I 0.11 NG/ML (0.02-0.05)
[2017-11-26] MEDS ORDERED: NURSING INFORMATION XX SCH (07:00)
[2017-11-26] MEDS ORDERED: BISACODYL 10 MG SUPP RECTAL PRN (07:00)
[2017-11-26] MEDS ORDERED: ONDANSETRON HCL 4 MG/2 ML VIAL IV PUSH PRN (07:00)
[2017-11-26] MEDS ORDERED: LACTULOSE SYRUP 20 GM/30 ML CUP PO PRN (07:00)
[2017-11-26] MEDS ORDERED: SODIUM CHLORIDE 0.9% FLUSH 10 ML FLUSH IV FLUSH PRN (07:00)
[2017-11-26] MEDS ORDERED: MAGNESIUM HYDROXIDE SUSP 30 ML CUP PO PRN (07:00)
[2017-11-26] MEDS ORDERED: SENNOSIDES 8.6 MG TAB PO PRN (07:00)
[2017-11-26] MEDS ORDERED: CHLORHEXIDINE GLUCONATE 2 % 1 PACK (2 CLOTHS) TOP PRN (07:00)
[2017-11-26] MEDS ORDERED: ACETAMINOPHEN 325 MG TAB PO PRN (07:00)
[2017-11-26] MEDS ORDERED: GLUCAGON 1 MG/ML VIAL OTHER PRN (07:15)
[2017-11-26] MEDS ORDERED: DEXTROSE 50% IN WATER 50 ML VIAL(D50) IV PUSH PRN (07:15)
[2017-11-26] MEDS: INSULIN ASPART SUPPLEMENTAL SCALE SQ SCH ×4 (07:27→20:18)
--- NOTE | 2017-11-26 07:40 | HHI.HP ---
HPI Service Critical Care Medicine Primary Care Physician Saray Fox Do, MD Admission Diagnosis Interstitial infiltrate, hypoxemia, pulmonary fibrosis, lung cancer Diagnosis: Travel History International Travel<30 Days: No Contact w/Intl Traveler <30 Da: No Traveled to Known Affected Are: No History of Present Illness History of Present Illness HPI This is a 77-year-old male that presented to [place] emergency department with increasing respiratory distress beginning at 4 AM. 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 The patient continues on chemotherapy and his oncologist is Dr. Josesito Fisher. He completed rounds of carboplatin and Taxol in 09/2017. He also received previous radiation therapy in 2016. He last received immunotherapy on 11/24/17 and stated that he had previously had symptoms very similar 48 hours post treatment. In review of the medical records the patient has been having worsening dyspnea and having increasing oxygen requirements. He was last seen in Dr. Fisher's office with dyspnea with O2 saturation in the 70s on 11/24/2017 and received oxygen and O2 saturation increased to 93%, and was started on prednisone 20 mg twice daily with plans for subsequent taper. His respiratory distress was thought to be secondary to an inflammatory response. the patient at that time was instructed to continue to utilize oxygen supplementation. The patient normally utilizes CPAP at night secondary to obstructive sleep apnea. The patient also has a history of smoking, COPD and pulmonary fibrosis. His java j2ee technical lead is Dr. Ghanshyam Gaines. In the ED imaging and laboratory studies were obtained the patient was noted to have a WBC count of 17, and chest x-ray revealed increasing patchy interstitial infiltrates in the mid and lower lungs without consolidation. The patient was noted to have an elevated BNP. Lasix 80 mg IV was given. Patient was placed on BiPAP on 100%, with resultant PaO2 of 87. The patient's medical history is also significant for the fact the patient has coronary artery disease critical care medicine was consulted. History PFSH Past Medical History Hx Anticoagulant Therapy: No Cancer: Yes (lung CA) Cardiovascular Problems: No (cholesterol, CAD, stent x 2, carotid, femoral, iliac artery stenosis) High Cholesterol: Yes Chemotherapy: Yes COPD: Yes Cerebrovascular Accident: No Diabetes: No Diminished Hearing: Yes (hearing aid) Endocrine: No Gastrointestinal Disorders: Yes (GERD, polyps, gastritis) GERD: Yes Genitourinary: No Hepatitis: No Hiatal Hernia: No Hypertension: Yes Immune Disorder: No Musculoskeletal: No Neurologic: No Psychiatric: No Reproductive: No Respiratory: Yes (lung ca, pulmonary fibrosis) Radiation Therapy: Yes Sleep Apnea: Yes (CPAP at HS) Thyroid Disease: No Past Surgical History Abdominal Surgery: No AICD: No Body Medical Devices: stents to right leg and lower abdomen, RIGHT CHEST PORT Cardiac Surgery: No Ear Surgery: No Endocrine Surgery: No Eye Surgery: No Genitourinary Surgery: No Gynecologic Surgery: No Hysterectomy: No Joint Replacement: No Oral Surgery: Yes (tonsillectomy 1950) Pacemaker: No Thoracic Surgery: Yes Other Surgery: Yes (POLYPS 4 YEARS AGO) Social History Alcohol Use: Yes (2 water glasses of wine daily) Tobacco Use: No (QUIT 3 YEARS) Substance Use: No Allergies-Medications Allergies-Medications (Allergen,Severity, Reaction): Coded Allergies: No Known Allergies (Unverified Allergy, Unknown, 11/26/17) Reported Meds & Prescriptions Reported Meds & Active Scripts Active Ventolin Hfa 18 GM Inh (Albuterol Sulfate) 90 Mcg/Act Aer 2 Puff INH Q4-6H PRN Prednisone 20 Mg Tab 20 Mg PO BID Coreg (Carvedilol) 12.5 Mg Tab 12.5 Mg PO BID Reported Anoro Ellipta Inh (Umeclidinium/Vilanterol) 62.5-25 Mcg/Act Aero 1 Puff INH DAILY Zolpidem (Zolpidem Tartrate) 10 Mg Tab 10 Mg PO HS PRN Atorvastatin (Atorvastatin Calcium) 80 Mg Tab 80 Mg PO HS Co Q-10 (Coenzyme Q10 (Ubidecarenone)) 200 Mg Cap 1 Tab PO BID S-Omtunj-x-Cysteine (Acetylcysteine (Nutrient)) 600 Mg Cap 1 Tab PO BID D3 Super Strength (Cholecalciferol) 2,000 Unit Cap 2,000 Units PO DAILY Feosol (Ferrous Sulfate) 325 Mg (65 Mg Iron) Tab 1 Tab PO DAILY Fenofibrate 54 Mg Tab 54 Mg PO DAILY Multiple Vitamin 1 Tab 1 Tab PO DAILY Pantoprazole (Pantoprazole Sodium) 40 Mg Tab 40 Mg PO DAILY Plavix (Clopidogrel Bisulfate) 75 Mg Tab 75 Mg PO DAILY Aspirin Low Dose (Aspirin) 81 Mg Chew 81 Mg PO HS Review of Systems ROS A 12 point review of systems is negative except for HPI. Past Family Social History Allergies: Coded Allergies: No Known Allergies (Unverified Allergy, Unknown, 11/26/17) Past Medical History Poorly differentiated squamous cell carcinoma of the lung, obstructive sleep apnea, history of tobacco abuse, hypertension, hyperlipidemia, glaucoma, pulmonary fibrosis, coronary artery disease, GERD, chronic kidney disease stage III, Past Surgical History Status post lung wedge resection 05/30/17 Reported Medications Reviewed Active Ordered Medications See MAR Family History Patient is and lives with Social History History of tobacco abuse, denies illicit drug use, EtOH use Physical Exam Vital Signs Vital Signs Date Time Temp Pulse Resp B/P (MAP) Pulse Ox O2 Delivery O2 Flow Rate FiO2 11/26/17 06:14 132 40 112/56 (74) 94 BiPAP 11/26/17 05:43 139 38 184/90 (121) 100 BiPAP 11/26/17 05:39 114 36 97 BiPAP 11/26/17 05:35 94 100 11/26/17 05:20 144 40 73 BiPAP 11/26/17 05:20 40 73 BiPAP 11/26/17 05:17 100.9 143 40 131/101 (111) 45 11/26/17 05:17 45 Non-Rebreather 11/26/17 05:17 100.9 143 40 131/101 (111) 45 Non-Rebreather Physical Exam GENERAL: This is a well-developed well-nourished obese male, in moderate respiratory distress currently on BiPAP SKIN: Warm and dry. HEAD: Atraumatic. Normocephalic. EYES: Pupils equal and round. 3 mm and brisk. no scleral icterus. No injection or drainage. Extraocular movement intact ENT: No nasal bleeding or discharge. Mucous membranes pink and moist. NECK: Trachea midline. No JVD. CARDIOVASCULAR: Normal rate, regular rhythm. RESPIRATORY: No accessory muscle use. Clear to auscultation. Breath sounds equal bilaterally. On BiPAP GASTROINTESTINAL: Abdomen soft, non-tender, obese nondistended. No guarding. Bowel sounds active MUSCULOSKELETAL: Extremities without clubbing, cyanosis, or edema. No obvious deformities. NEUROLOGICAL: GCS 15 .awake and alert. RASS 0. No gross focal/sensory deficits. Follows commands in all 4 extremities. Laboratory Laboratory Tests Test 11/26/17 05:20 11/26/17 05:35 11/26/17 06:20 White Blood Count 17.5 Red Blood Count 3.53 Hemoglobin 11.1 Hematocrit 33.0 Mean Corpuscular Volume 93.5 Mean Corpuscular Hemoglobin 31.4 Mean Corpuscular Hemoglobin Concent 33.5 Red Cell Distribution Width 17.5 Platelet Count 349 Mean Platelet Volume 6.6 Neutrophils (%) (Auto) 86.3 Lymphocytes (%) (Auto) 5.7 Monocytes (%) (Auto) 2.1 Eosinophils (%) (Auto) 5.8 Basophils (%) (Auto) 0.1 Neutrophils # (Auto) 15.1 Lymphocytes # (Auto) 1.0 Monocytes # (Auto) 0.4 Eosinophils # (Auto) 1.0 Basophils # (Auto) 0.0 CBC Comment DIFF FINAL Differential Comment Blood Urea Nitrogen 30 Creatinine 1.60 Random Glucose 293 Total Protein 7.5 Albumin 2.8 Calcium Level 8.8 Magnesium Level 2.0 Alkaline Phosphatase 65 Aspartate Amino Transf (AST/SGOT) 23 Alanine Aminotransferase (ALT/SGPT) 24 Total Bilirubin 0.8 Sodium Level 140 Potassium Level 4.4 Chloride Level 104 Carbon Dioxide Level 19.5 Anion Gap 17 Estimat Glomerular Filtration Rate 42 Troponin I 0.11 B-Type Natriuretic Peptide 826 Blood Gas Puncture Site LT RADIAL Blood Gas Patient Temperature 98.6 Blood Gas HCO3 20 Blood Gas Base Excess -4.8 Blood Gas Oxygen Saturation 92 Arterial Blood pH 7.33 Arterial Blood Partial Pressure CO2 40 Arterial Blood Partial Pressure O2 87 Arterial Blood Oxygen Content 14.4 Arterial Blood Carboxyhemoglobin 2.5 Arterial Blood Methemoglobin 1.0 Blood Gas Hemoglobin 11.1 Oxygen Delivery Device BIPAP Blood Gas Ventilator Setting [id number] Blood Gas Inspired Oxygen 100 Urine Color YELLOW Urine Turbidity CLEAR Urine pH 5.5 Urine Specific [place] 1.020 Urine Protein TRACE Urine Glucose (UA) NEG Urine Ketones NEG Urine Occult Blood SMALL Urine Nitrite NEG Urine Bilirubin NEG Urine Urobilinogen 0.2 Urine Leukocyte Esterase NEG Urine RBC 0-3 Urine WBC 0-2 Urine Squamous Epithelial Cells 0-5 Microscopic Urinalysis Comment CULT NOT INDICATED Date/Time Source Procedure Growth Status 11/26/17 05:30 Blood Peripheral Aerobic Blood Culture Pending Received 11/26/17 05:30 Blood Peripheral Anaerobic Blood Culture Pending Received Result Diagram: 11/26/17 0520 11/26/17 0520 Imaging Last Impressions Chest X-Ray 11/26/17 0000 Signed Impressions: Service Date/Time: Sunday, November 26, 2017 05:18 - CONCLUSION: Interval development of patchy diffuse bilateral interstitial infiltrates. Gus Carmona MD Septic Shock Reassessment Septic shock perfusion: reassessment completed Caprini VTE Risk Assessment Caprini VTE Risk Assessment: Mod/High Risk (score >= 2) Caprini Risk Assessment Model Point Value = 1 Point Value = 2 Point Value = 3 Point Value = 5 Age 41-60 Minor surgery BMI > 25 kg/m2 Swollen legs Varicose veins or History of unexplained or recurrent spontaneous Oral contraceptives or hormone replacement Sepsis (< 1 month) Serious lung disease, including pneumonia (< 1 month) Abnormal pulmonary function Acute myocardial infarction Congestive heart failure (< 1 month) History of inflammatory bowel disease Medical patient at bed rest Age 61-74 Arthroscopic surgery Major open surgery (> 45 min) Laparoscopic surgery (> 45 min) Malignancy Confined to bed (> 72 hours) Immobilizing plaster cast Central venous access Age >= 75 History of VTE Family history of VTE Factor V Leiden Prothrombin [id number] Lupus anticoagulant Anticardiolipin antibodies Elevated serum homocysteine Heparin-induced thrombocytopenia Other congenital or acquired thrombophilia Stroke (< 1 month) Elective arthroplasty Hip, pelvis, or leg fracture Acute spinal cord injury (< 1 month) Prophylaxis Regimen Total Risk Factor Score Risk Level Prophylaxis Regimen 0-1 Low Early ambulation 2 Moderate Order ONE of the following: *Sequential Compression Device (SCD) *Heparin 5000 units SQ BID 3-4 Higher Order ONE of the following medications: *Heparin 5000 units SQ TID *Enoxaparin/Lovenox 40 mg SQ daily (WT < 150 kg, CrCl > 30 mL/min) *Enoxaparin/Lovenox 30 mg SQ daily (WT < 150 kg, CrCl > 10-29 mL/min) *Enoxaparin/Lovenox 30 mg SQ BID (WT < 150 kg, CrCl > 30 mL/min) AND/OR *Sequential Compression Device (SCD) 5 or more Highest Order ONE of the following medications: *Heparin 5000 units SQ TID (Preferred with Epidurals) *Enoxaparin/Lovenox 40 mg SQ daily (WT < 150 kg, CrCl > 30 mL/min) *Enoxaparin/Lovenox 30 mg SQ daily (WT < 150 kg, CrCl > 10-29 mL/min) *Enoxaparin/Lovenox 30 mg SQ BID (WT < 150 kg, CrCl > 30 mL/min) AND *Sequential Compression Device (SCD) Assessment and Plan Problem List: (1) Coronary artery disease ICD Code: I25.10 - Atherosclerotic heart disease of [place] coronary artery without angina pectoris Status: Chronic (2) Benign hypertension ICD Code: I10 - Essential (primary) hypertension Status: Chronic (3) COPD with exacerbation ICD Code: J44.1 - Chronic obstructive pulmonary disease with (acute) exacerbation Status: Acute (4) Squamous cell carcinoma of left lung ICD Code: C34.92 - Malignant neoplasm of unspecified part of left bronchus or lung (5) Interstitial edema ICD Code: R60.9 - Edema, unspecified Status: Acute (6) Pulmonary fibrosis ICD Code: J84.10 - Pulmonary fibrosis, unspecified Status: Chronic (7) Lung cancer ICD Code: C34.90 - Malignant neoplasm of unspecified part of unspecified bronchus or lung (8) Respiratory failure with hypoxia ICD Code: J96.91 - Respiratory failure, unspecified with hypoxia Status: Acute (9) Chronic kidney disease, stage 3 ICD Code: N18.3 - Chronic kidney disease, stage 3 (moderate) (10) GERD (gastroesophageal reflux disease) ICD Code: K21.9 - Gastro-esophageal reflux disease without esophagitis (11) Obstructive sleep apnea ICD Code: G47.33 - Obstructive sleep apnea (adult) (pediatric) (12) Hyperlipidemia ICD Code: E78.5 - Hyperlipidemia, unspecified Assessment and Plan Assessment This is a 77-year-old male with 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 The patient is at risk for intubation. Admit to ICU. Plan by systems: Neurologic: Glaucoma Insomnia Neuro checks per ICU protocol Patient normally takes Zoldipiem at night will hold for now Obtain information regarding medication for glaucoma from family Respiratory: Acute hypoxemic respiratory insufficiency COPD exacerbation Obstructive sleep apnea Poorly differentiated squamous cell carcinoma of the lung Pulmonary fibrosis Maintain O2 sat greater than 92% Maintain patient on CPAP at night normally uses CPAP at home at night Patient previously on prednisone 20 mg twice daily with a tentative plan for taper. We will continue methylprednisolone 40 mg twice daily Duo nebs every 6 hours scheduled and every 2 hours as needed Continue Anoro Ellipta inhaler 62.5- 25 mcgs/day Consult patient's personal java j2ee technical lead- Dr. Ghanshyam Gaines 11/26ches [id number] patchy interstitial infiltrates mid and lower lungs without consolidation Cardiovascular: Coronary artery disease Acute systolic heart failure Hypertension BNP 826, continue to monitor Initial troponin 0 0.11, continue to trend Continue carvedilol 12.5 mg twice daily, aspirin 81/day, atorvastatin 80 mg at at bedtime Obtain EKG, telemetry sinus tach Renal: Chronic kidney disease stage III BPH Patient received Lasix 80 mg monitor diuretic effect -- Strict I/Os FEN/GI: GERD Hyperlipidemia Hep-Lock IV Electrolytes per ICU protocol Monitor BMP Patient n.p.o. except medication-at risk for intubation Bowel regimen Patient normally takes Protonix at home will continue Continue fenofibrate 54 mg/day, multivitamin/day Heme/ID: Status post chemo/RT 09/17 Immunotherapy Leukocytosis Anemia Consult Heme Onc--Dr. Fisher, patient received immunotherapy Durvalumab on Obtain blood, sputum culture WBC count 17 may be secondary to prednisone, but cannot rule out possible immunosuppression Initiate empiric antibiotics cefepime and azithromycin will de-escalate upon speciation Obtain Legionella pneumococcal urine antigens, influenza nasal wash 10 units ferrous sulfate 325/day Obtain / trend lactate levels Endocrine: Glucose monitoring per ICU protocol. Low-dose regimen -- SSI Prophylaxis: GI Prophylaxis Protonix DVT Prophylaxis, will obtain ultrasound bilateral lower extremities -- SCDs Heparin twice daily Lines: Right chest [id number] in situ, peripheral IVs 2 Dispo: my billing statement This patient remains critically ill with one or more organ systems which are or may become a threat to life. I have spent in excess of 45 minutes discontinuously in the care and management of this patient. This time is exclusive of procedures, and includes, but is not limited to, evaluation of the patient, review of the medical record, discussions with family, consultants, nursing staff, or respiratory therapy, and documentation in the medical record. Code Status Full Discussed Condition With , patient, Dr. Blackwood and ED RN at bedside Problem Qualifiers (1) Lung cancer: Alyssia Polk MD Nov 26, 2017 07:40
--- NOTE | 2017-11-26 08:14 | RADRPT ---
EXAM DATE/TIME: 11/26/2017 07:46 [facility] COMPARISON: No previous studies available for comparison. INDICATIONS : Shortness of breath. MEDICAL HISTORY : Carcinoma, lung. Chronic obstructive pulmonary disease. Carcinoma, lung. Hypertension. Cardiovascul ar disease. Pulmonary fibrosis. SURGICAL HISTORY : Partial lung removed. Stents. ENCOUNTER: Initial ACUITY: 1 day PAIN SCORE: 0/10 LOCATION: Bilateral legs. TECHNIQUE: Venous ultrasound of the left and right leg was performed from the inguinal ligament to the proximal calf. Real-time, color Doppler and spectral tracing, compression and augmentation techniques were us ed. FINDINGS: RIGHT LEG: There is normal compressibility of the deep venous system from the inguinal region to the proximal ca lf. No echogenic clot is seen in the lumen of the common femoral, femoral, popliteal, and posterior tibial veins. There is a normal response of the venous system to proximal and distal augmentation an d respiration. LEFT LEG: There is normal compressibility of the deep venous system from the inguinal region to the proximal ca lf. No echogenic clot is seen in the lumen of the common femoral, femoral, popliteal, and posterior tibial veins. There is a normal response of the venous system to proximal and distal augmentation an d respiration. CONCLUSION: Normal examination. Adrian Farris MD on November 26, 2017 at 8:10 Board Certified Radiologist. This report was verified electronically.
[2017-11-26] MEDS: AZITHROMYCIN INJ 500 MG in SODIUM CHLOR 0.9% 250 ML INJ 250 ML IV SCH (08:28)
[2017-11-26] MEDS: methylPREDNISolone SOD SUCC 40 MG/1 ML VIAL IV PUSH SCH ×2 (08:29→20:10)
[2017-11-26] MEDS ORDERED: ACETYLCYSTEINE PO SCH (09:00)
[2017-11-26] MEDS: CARVEDILOL 12.5 MG TAB PO SCH ×3 (09:00→20:10)
[2017-11-26] MEDS: SODIUM CHLORIDE 0.9% FLUSH 10 ML FLUSH IV FLUSH SCH ×2 (09:00→20:10)
[2017-11-26] MEDS ORDERED: CEFEPIME INJ 2,000 MG in SODIUM CHLORIDE 0.9% INJ 100 ML IV SCH (09:00)
[2017-11-26] MEDS: CHOLECALCIFEROL (VIT D3) 1000 UNIT TAB PO SCH (09:09)
[2017-11-26] MEDS: FENOFIBRATE 48 MG TAB PO SCH (09:09)
[2017-11-26] MEDS: UMECLIDINIUM 62.5 MCG/VILANTEROL 25 MCG INHALER INH SCH (09:09)
[2017-11-26] MEDS: FERROUS SULFATE 325 MG (65 MG ELEMENTAL IRON) TAB PO SCH (09:09)
[2017-11-26] MEDS: MULTIVITAMIN TAB PO SCH (09:11)
[2017-11-26] MEDS: CLOPIDOGREL 75 MG TAB PO SCH (09:11)
[2017-11-26] MEDS: DOCUSATE SODIUM 50 MG/SENNA 8.6 MG TAB PO SCH ×2 (09:11→20:10)
[2017-11-26] MEDS: HEPARIN SODIUM - SQ 10,000 UNITS/ML VIAL SQ SCH ×2 (09:59→20:13)
[2017-11-26] MEDS: PANTOPRAZOLE SODIUM 40 MG VIAL IV PUSH SCH (09:59)
[2017-11-26] MEDS: CEFEPIME INJ 2,000 MG in SODIUM CHLORIDE 0.9% INJ 100 ML IV SCH ×2 (10:00→20:10)
[2017-11-26] MEDS ORDERED: CHLORHEXIDINE GLUCONATE 2 % 1 PACK (2 CLOTHS)(extra cloths) TOPICAL PRN (10:45)
--- NOTE | 2017-11-26 14:17 | EKG ---
Date Performed: 11/26/2017 Time Performed: 07:22:56 PTAGE: 77 years EKG: SINUS TACHYCARDIA WITH OCCASIONAL VENTRICULAR PREMATURE COMPLEXES MARKED LEFT AXIS DEVIATIO N LEFT VENTRICULAR HYPERTROPHY AND ST-T CHANGE ABNORMAL ECG PREVIOUS TRACING : 11/26/2017 06.04 Compared to previous tracing, previous with baseline artif act, most likely no significant change DOCTOR: Praneeth Lara Interpretating Date/Time 11/26/2017 14:16:30
--- NOTE | 2017-11-26 14:20 | EKG ---
Date Performed: 11/26/2017 Time Performed: 06:04:35 PTAGE: 77 years EKG: SINUS TACHYCARDIA BASELINE ARTIFACT LEFT ANTERIOR FASCICULAR BLOCK INFERIOR MYOCARDIAL INFA RCTION PREVIOUS TRACING : 08/19/2017 01.13 Compared to previous tracing, change in R wave progr ession may be due to lead placement DOCTOR: Praneeth Lara Interpretating Date/Time 11/26/2017 14:20:14
--- NOTE | 2017-11-26 17:45 | MB ---
cc: Victorino Gleason MD DATE: 11/26/2017 REASON FOR CONSULTATION: Exacerbation of COPD, pulmonary fibrosis. HISTORY OF PRESENT ILLNESS: The patient is a 77-year-old male with known history of COPD, pulmonary fibrosis and squamous cell cancer, left upper lung. The patient last received chemotherapy 11/24/2017. Comes to the emergency room complaining of increasing shortness of breath. He has chronic respiratory failure, on home oxygen therapy. The patient has cough, no expectoration. No fever, no chills, no hemoptysis. No history of TB or previous industrial exposure. He does have history of obstructive sleep apnea, on PAP therapy at home. PAST MEDICAL HISTORY: 1. Obstructive sleep apnea. 2. COPD. 3. Pulmonary fibrosis. 4. Chronic respiratory failure, on oxygen therapy. 5. Coronary artery disease. 6. Hypertension. 7. Hyperlipidemia. 8. Peripheral vascular disease with a stent placement of the femoral iliac arteries bilaterally. 9. Glaucoma. PAST SURGICAL HISTORY: Previous left upper lobectomy, an infusion port placement, colonoscopy. MEDICATIONS: Include Lasix, DuoNeb via nebulization, Protonix, carvedilol, cefepime. Zithromax, Solu-Medrol. ALLERGIES: NONE KNOWN TO MEDICATION. FAMILY HISTORY: Noncontributory. SOCIAL HISTORY: Previous smoker. REVIEW OF SYSTEMS: A 12-point review of systems as per HPI and past history, otherwise negative. PHYSICAL EXAMINATION: GENERAL: The patient alert, on BiPAP therapy. VITAL SIGNS: Temperature 97, pulse 90, respiration 20, blood pressure 110/60. HEENT: Unremarkable. Eyes without icterus. NECK: Without adenopathy, thyroid enlargement. CHEST: Scattered rhonchi bilaterally. CARDIAC: PMI not appreciated. S1, S2 audible, I/ soft ejection systolic murmur, left sternal border. ABDOMEN: Lax, bowel sounds audible. EXTREMITIES: No clubbing, cyanosis or edema. SKIN: Normal. No lymphadenopathy. LABORATORY DATA: White count 17,000, hemoglobin 11, hematocrit 33, platelets 349,000. Sodium 140, potassium 4.4, BUN 30, creatinine 1.6. ABG upon presentation, pH 7.33, CO2 of 40, pO2 of 77 on BiPAP 15/500% oxygen. At 40% oxygen, the pO2 is at 73. IMPRESSION: 1. Chronic obstructive pulmonary disease exacerbation. 2. Pulmonary fibrosis. 3. Question pneumonia. 4. Squamous cell cancer, left upper lung, post-lobectomy. 5. Obstructive sleep apnea. 6. Hypertension. 7. Hyperlipidemia. 8. Peripheral vascular disease. PLAN: The patient is on oxygen therapy. He is on BiPAP at present. Will reduce inspired oxygen fraction and discontinue BiPAP therapy when possible. He has his CPAP machine with him; however, he does not need to use it until he is stabilized. Antibiotic therapy has been initiated as mentioned in his medication list above, and this should be continued. Chest x-ray will be followed. Intravenous steroids will be helpful for the exacerbation of COPD as well as his underlying pulmonary fibrosis. I do thank you for asking me to partake in Mr. Mayorga's care. He will be followed by Dr. Emery Gaines, who is following him as an outpatient. MD ANASTASIIA Oakley/JACINTO , 04:19 PM , 05:44 PM
[2017-11-26] MEDS: ASPIRIN 81 MG CHEW TAB PO SCH (20:10)
[2017-11-26] MEDS: ATORVASTATIN 40 MG TAB PO SCH (20:11)
[2017-11-26] MEDS ORDERED: ZOLPIDEM TARTRATE 10 MG TAB PO PRN (21:15)
[2017-11-27] VITALS (26 sets, daily range): BP systolic 102–168; BP diastolic 49–81; PULSE 72–108; RESP 16–44; TEMP 96.2–98.8; O2SAT 86–98
[2017-11-27] MEDS: RESP: ALBUTEROL 2.5 MG/IPRATROPIUM 0.5 MG NEB (SCH) INH ×3 (03:01→21:19)
[2017-11-27] MEDS: CHLORHEXIDINE GLUCONATE 2 % 1 PACK (2 CLOTHS)(taper/protocol) TOPICAL SCH (03:07)
[2017-11-27 03:26] LABS: AUTOMATED NEUTROPHIL # 9.6 TH/MM3 (1.8-7.7); BASOPHIL % 0.1 % (0.0-2.0); HEMATOCRIT 27.5 % (39.0-51.0); HEMOGLOBIN 8.9 GM/DL (13.0-17.0); LYMPH % 1.8 % (9.0-44.0); LYMPHOCYTE # 0.2 TH/MM3 (1.0-4.8); MEAN CELL VOLUME 92.1 FL (80.0-100.0); MEAN CORPUSCULAR HEMOGLOBIN 29.8 PG (27.0-34.0); MEAN CORPUSCULAR HGB CONC 32.4 % (32.0-36.0); MEAN PLATELET VOLUME 5.9 FL (7.0-11.0); MONO % 1.8 % (0.0-8.0); MONOCYTE # 0.2 TH/MM3 (0-0.9); NEUT % 96.3 % (16.0-70.0); PLATELET COUNT 254 TH/MM3 (150-450); RED BLOOD COUNT 2.99 MIL/MM3 (4.50-5.90); RED CELL DISTRIBUTION WIDTH 17.5 % (11.6-17.2)
[2017-11-27 03:37] LABS: BICARBONATE 25.9 MEQ/L (21.0-32.0); CALCIUM 8.6 MG/DL (8.5-10.1)
[2017-11-27] MEDS ORDERED: CHLORHEXIDINE GLUCONATE 2 % 1 PACK (2 CLOTHS) TOP SCH (04:00)
[2017-11-27 04:07] LABS: CREATININE 1.4 MG/DL (0.60-1.30); MAGNESIUM 2.1 MG/DL (1.5-2.5); PHOSPHORUS 3.7 MG/DL (2.5-4.9)
--- NOTE | 2017-11-27 06:32 | RADRPT ---
EXAM DATE/TIME: 11/27/2017 05:48 [facility] COMPARISON: CHEST SINGLE AP, August 18, 2017, 12:20. CHEST SINGLE AP, November 26, 2017, 5:18. INDICATIONS : Shortness of breath. MEDICAL HISTORY : Chronic obstructive pulmonary disease. Carcinoma, lung. Hypertension. Cardiovascular disease. pul moary fibrosis SURGICAL HISTORY : Infusaport. ENCOUNTER: Subsequent ACUITY: 2 days PAIN SCORE: Non-responsive. LOCATION: Bilateral chest FINDINGS: A single view of the chest demonstrates stable bilateral interstitial prominence. Nodular density is again identified adjacent to the aortic arch. Improving aeration in the left base. Heart size is norm al. Right IJ [id number] with the tip projecting over the central venous system. Osseous structures are intact with some degenerative spurring of the dorsal spine. CONCLUSION: 1. Stable interstitial prominence may represent some baseline fibrosis. 2. Improving aeration in the left lung base with probable resolving atelectasis. 3. Stable masslike lesion adjacent to the aortic arch. Yash Keller MD on November 27, 2017 at 6:27 Board Certified Radiologist. This report was verified electronically.
[2017-11-27] MEDS ORDERED: HEPARIN-D5W 25,000 U/250 ML 250 ML IV SCH (08:00)
[2017-11-27] MEDS: INSULIN ASPART SUPPLEMENTAL SCALE SQ SCH ×4 (08:00→21:00)
[2017-11-27] MEDS: AZITHROMYCIN INJ 500 MG in SODIUM CHLOR 0.9% 250 ML INJ 250 ML IV SCH (08:04)
[2017-11-27] MEDS: methylPREDNISolone SOD SUCC 40 MG/1 ML VIAL IV PUSH SCH ×2 (08:04→21:39)
--- NOTE | 2017-11-27 08:12 | MB ---
cc: Marquis Rios MD DATE: 11/27/2017 REASON FOR CONSULTATION: Myocardial infarction. HISTORY OF PRESENT ILLNESS: The patient is a very pleasant 77-year-old gentleman who has seen my partner, Dr. Infante for what he describes as purely preventative cardiac care. 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 The patient tells me that twice during his chemotherapy he has become acutely short of breath and he presented with similar feelings of shortness of breath and presented to the emergency department. Of note, he is on home oxygen for pulmonary fibrosis. Initial testing in the emergency department revealed that he was flu A positive, but also showed an elevated BNP and initially mildly elevated troponin; however, this troponin became severely elevated to over 23 during the day yesterday. The patient is currently asymptomatic. He denies any current or recent chest pain and he says his breathing is much better than when he presented. He still gets short of breath with any exertion while he is off oxygen and in fact he does desaturate while speaking to me; however, again he is on home oxygen and is not currently on oxygen while talking with me. His oxygen will be replaced henceforth. Again, currently, the patient is asymptomatic, denying any current shortness of breath, although does endorse shortness of breath on exertion. No chest pain, lightheadedness, dizziness or syncope. PAST MEDICAL HISTORY: Per chart: 1. Coronary artery disease, status post stent x 2 (although the patient did not mention this again himself). 2. Carotid stenosis. 3. Femoral stenosis. 4. Iliac artery stenosis. 5. Lung cancer. 6. Pulmonary fibrosis. CURRENT MEDICATIONS: 1. Lasix 40 mg IV daily. 2. Aspirin 81 mg daily. 3. Lipitor 80 mg at bedtime. 4. Carvedilol 12.5 mg b.i.d. 5. Plavix 75 mg daily. 6. Cefepime. ALLERGIES: NO KNOWN DRUG ALLERGIES. PHYSICAL EXAMINATION: VITAL SIGNS: Afebrile, pulse 80, respiratory rate 19, BP 124/68, saturating 94 on 3 liters, but desaturates to the lower 80s on room air while speaking. GENERAL: This is a pleasant gentleman in no distress. NECK: No JVD. LUNGS: Decreased breath sounds in all bowles. CARDIOVASCULAR: Regular rate and rhythm. No significant murmurs appreciated. ABDOMEN: Benign. EXTREMITIES: No edema. LABORATORY DATA: Sodium 138, potassium 3.7, chloride 104, bicarbonate 25.8, BUN 39, creatinine 1.4, glucose 131. Troponin peaked at 23.1, going down to 18.5. BNP was up to 1540. EKG shows sinus tachycardia with PVCs and nonspecific ST changes. Microbiology is positive for flu A. Chest x-ray shows fibrosis with improved aeration. IMPRESSION: 1. Myocardial infarction. The patient made a high troponin level without any chest pain. Likely he has significant underlying coronary disease and his episode of respiratory distress elicited this [place], however, primary acute coronary syndrome is certainly also possible. His troponins are already trending down and he has now asymptomatic, so at this point, I do not feel there is an immediate need for cardiac catheterization. However, he will likely require an ischemic workup in the near future. I am going to start him on a heparin drip for the next day or so despite his troponins trending downward. I will have him undergo an echocardiogram to assess his LV function, which I suspect will be reduced based on his presentation. Otherwise, I will continue him on medical therapy for his coronary disease, which includes his aspirin, Plavix and statin. I will add a low-dose beta susan. 2. CHF. The patient's shortness of breath may have been due to his congestive heart failure exacerbation. He is currently asymptomatic on daily IV Lasix. I will continue him on IV Lasix for now and will likely have him changed over to p.o. tomorrow. Clearly, the patient's multiple medical problems including lung cancer play a role in his overall cardiac care. However, the patient tells me he will play a role in his overall cardiac care and his cancer prognosis will need to be discussed as well. Further recommendations will be based on the above. Thank you again for the opportunity to participate in this patient's care. MD GALE Shepard/EMILIO , 07:47 AM , 08:11 AM
--- NOTE | 2017-11-27 08:23 | HHI.PR ---
Subjective Remarks alert on BIPAP less sob Objective Vital Signs Date Time Temp Pulse Resp B/P (MAP) Pulse Ox O2 Delivery O2 Flow Rate FiO2 11/27/17 06:00 80 19 124/68 (86) 94 11/27/17 06:00 80 11/27/17 05:00 72 124/61 (82) 93 11/27/17 04:00 96.2 76 22 117/49 (71) 96 11/27/17 04:00 76 11/27/17 03:00 100 44 125/65 (85) 94 11/27/17 02:00 74 11/27/17 02:00 74 22 103/55 (71) 96 11/27/17 01:00 80 17 106/53 (70) 89 11/27/17 00:00 80 11/27/17 00:00 96.7 80 24 102/51 (68) 96 11/26/17 23:00 82 23 109/59 (76) 90 11/26/17 22:00 88 25 133/61 (85) 90 11/26/17 22:00 88 11/26/17 21:00 88 18 108/62 (77) 94 11/26/17 20:35 91 3.00 11/26/17 20:00 97.8 98 31 140/75 (96) 90 11/26/17 20:00 98 11/26/17 19:25 95 35 11/26/17 19:00 96 18 115/60 (78) 94 11/26/17 18:00 90 11/26/17 18:00 98 24 132/72 (92) 93 11/26/17 17:50 96 35 11/26/17 17:00 92 20 118/62 (80) 89 11/26/17 16:45 94 Nasal Cannula 4.00 11/26/17 16:00 98.5 86 19 116/65 (82) 94 11/26/17 16:00 92 11/26/17 15:00 84 18 116/62 (80) 96 11/26/17 15:00 84 11/26/17 14:00 86 107/63 (78) 97 11/26/17 14:00 93 11/26/17 14:00 96 35 11/26/17 13:00 96 51 102/56 (71) 95 11/26/17 12:00 98 22 110/64 (79) 96 11/26/17 12:00 93 11/26/17 11:20 97 40 11/26/17 11:00 96 14 100/60 (73) 98 11/26/17 10:30 97 50 11/26/17 10:19 11/26/17 10:15 104 22 116/64 (81) 11/26/17 09:30 100 70 11/26/17 09:19 104 16 102/61 (75) 99 BiPAP 11/26/17 09:05 100 100 I/O 11/26/17 11/26/17 11/26/17 11/27/17 11/27/17 11/27/17 07:00 15:00 23:00 07:00 15:00 23:00 Intake Total 250 ml 440 ml Output Total 70 ml 350 ml 850 ml Balance -70 ml 250 ml 90 ml -850 ml Intake Oral 340 ml IV Total 250 ml 100 ml Output Urine Total 70 ml 350 ml 850 ml Bladder Scan Volume Amount 0 ml # Bowel Movements 0 Result Diagram: 11/27/17 0303 11/27/17 0303 Objective Remarks GENERAL: SKIN: Warm and dry. HEAD: Atraumatic. Normocephalic. EYES: Pupils equal and round. No scleral icterus. No injection or drainage. ENT: No nasal bleeding or discharge. Mucous membranes pink and moist. NECK: Trachea midline. No JVD. CARDIOVASCULAR: Regular rate and rhythm. RESPIRATORY: No accessory muscle use. Clear to auscultation. Breath sounds equal bilaterally. GASTROINTESTINAL: Abdomen soft, non-tender, nondistended. Hepatic and splenic margins not palpable. MUSCULOSKELETAL: Extremities without clubbing, cyanosis, or edema. No obvious deformities. NEUROLOGICAL: Awake and alert. No obvious cranial nerve deficits. Motor grossly within normal limits. Five out of 5 muscle strength in the arms and legs. Normal speech. PSYCHIATRIC: Appropriate mood and affect; insight and judgment normal. Assessment and Plan Assessment and Plan IMPRESSION RESPIRATORY FAILURE ACUTE OK COPD LUNG CA PULMONARY FIBROSIS FLU + PLAN O2/BIPAP CARDIOLOGY FOLLOWING STEROIDS ANTIBX BRONCHODILATOR THERAPY PROGNOSIS GUARDED Victorino Gleason MD Nov 27, 2017 08:23
--- NOTE | 2017-11-27 08:36 | MB ---
cc: Swetha Oropeza MD DATE: 11/26/2017 CHIEF COMPLAINT: 1. Stage III non-small cell lung cancer. 2. Influenza A. 3. Respiratory distress. HISTORY OF PRESENT ILLNESS: Mr. Mayorga is a 77-year-old gentleman with a history of stage III, non-small cell lung cancer, who was admitted to the hospital with respiratory distress. His cancer history began when he presented with a left upper lobe mass associated with AP window nodularity and a secondary lesion. He underwent thoracotomy with resection of the left upper lobe lesion and the AP window lesion was explored, however, this was adherent to the mediastinum and could not be resected. He was recommended to receive postoperative radiation and chemotherapy. He subsequently underwent concurrent chemotherapy and radiation therapy, which was completed in mid-August 2017. Chemotherapy during radiation was weekly carboplatin and paclitaxel. He was then treated with consolidation carboplatin and paclitaxel in 09/2017. Restaging imaging studies performed showed disease response. He was initiated on durvalumab on 11/24/2017. He also has a history of COPD and pulmonary fibrosis. PAST MEDICAL HISTORY: 1. Arthritis. 2. Atherosclerosis of the aorta. 3. Carotid stenosis. 4. Chronic kidney disease. 5. Chronic obstructive pulmonary disease. 6. Coronary artery disease. 7. Hyperlipidemia. 8. Hypertension. 9. Stage III non-small cell lung cancer. PAST SURGICAL HISTORY: 1. EGD, colonoscopy. 2. Left upper lobe wedge resection. 3. Left thoracotomy for excisional biopsy, left lung mass. FAMILY HISTORY: Coronary artery disease. SOCIAL HISTORY: The patient is a former smoker. He lives here in the [facility]. REVIEW OF SYSTEMS: As above in the HPI, all other review of systems negative. IMAGING STUDIES: With a chest x-ray which showed interval development of diffuse patchy bilateral infiltrates. Lower extremity ultrasound was negative for any DVT. LABORATORY STUDIES: White blood cell count 17.5, hemoglobin 11.1, platelet count of 349,000. ANC is 15.1. Creatinine is 1.60. Liver function tests are within normal limits. Troponin elevated at 23.0. Microbiology with blood cultures pending. A nasal swab is positive for flu antigen. Urine evaluation for legionella and strep pneumo is pending. PHYSICAL EXAM General: well developed, well nourished man in no distress CV: RRR with no murmurs Respiratory: clear to auscultation bilaterally Abdomen: soft, nontender, nondistended bowel sounds present Ext:no edema ENT: nasal cannula in place Neuro: grossly non focal Psych: appropriate mood and affect ASSESSMENT AND PLAN: 1. Stage III non-small cell lung cancer, squamous cell carcinoma, status post concurrent chemoradiotherapy and is now being treated with durvalumab. He follows in oncology clinic with my colleague, Dr. Fisher. 2. Respiratory distress. The patient has underlying severe COPD and is on oxygen at home. His influenza swab is positive for influenza A. He is currently on broad spectrum antibiotic therapy with cefepime and azithromycin. He is on intermittent BiPAP as needed. 3. Troponin elevation: further evaluation with serial labs and EKg pending. MD ASCENCION Mireles/ARTEMIO , 05:22 PM , 06:10 PM JASMYN
[2017-11-27] MEDS ORDERED: FUROSEMIDE 40 MG/4 ML VIAL IV PUSH SCH (09:00)
[2017-11-27] MEDS: UMECLIDINIUM 62.5 MCG/VILANTEROL 25 MCG INHALER INH SCH (09:28)
[2017-11-27] MEDS: PANTOPRAZOLE SODIUM 40 MG VIAL IV PUSH SCH (09:28)
--- NOTE | 2017-11-27 09:29 | PD.ONC.PN ---
Subjective Subjective Remarks Patient seen and examined, vital signs, labs, medications, imaging studies and applications consultant notes reviewed. Subjectively; the patient expresses anxiety and a little bit of frustration at his current circumstance. He tells me he just could not take in a deep enough breath starting Monday night. He denies having had chest pain he does report a cough. On presentation to the hospital he was noted to be hypoxic respiratory failure, he tested positive for influenza A and has elevated troponins; he has been assessed to have a non-ST elevation VA. He is currently on aspirin and Plavix and orders for heparin infusion have been initiated as well. Objective Data Date Time Temp Pulse Resp B/P (MAP) Pulse Ox O2 Delivery O2 Flow Rate FiO2 11/27/17 06:00 80 19 124/68 (86) 94 11/27/17 06:00 80 11/27/17 05:00 72 124/61 (82) 93 11/27/17 04:00 96.2 76 22 117/49 (71) 96 11/27/17 04:00 76 11/27/17 03:00 100 44 125/65 (85) 94 11/27/17 02:00 74 11/27/17 02:00 74 22 103/55 (71) 96 11/27/17 01:00 80 17 106/53 (70) 89 11/27/17 00:00 80 11/27/17 00:00 96.7 80 24 102/51 (68) 96 11/26/17 23:00 82 23 109/59 (76) 90 11/26/17 22:00 88 25 133/61 (85) 90 11/26/17 22:00 88 11/26/17 21:00 88 18 108/62 (77) 94 11/26/17 20:35 91 3.00 11/26/17 20:00 97.8 98 31 140/75 (96) 90 11/26/17 20:00 98 11/26/17 19:25 95 35 11/26/17 19:00 96 18 115/60 (78) 94 11/26/17 18:00 90 11/26/17 18:00 98 24 132/72 (92) 93 11/26/17 17:50 96 35 11/26/17 17:00 92 20 118/62 (80) 89 4/29/18 16:45 94 Nasal Cannula 4.00 11/26/17 16:00 98.5 86 19 116/65 (82) 94 11/26/17 16:00 92 11/26/17 15:00 84 18 116/62 (80) 96 11/26/17 15:00 84 11/26/17 14:00 86 107/63 (78) 97 11/26/17 14:00 93 11/26/17 14:00 96 35 11/26/17 13:00 96 51 102/56 (71) 95 11/26/17 12:00 98 22 110/64 (79) 96 11/26/17 12:00 93 11/26/17 11:20 97 40 11/26/17 11:00 96 14 100/60 (73) 98 11/26/17 10:30 97 50 11/26/17 10:19 11/26/17 10:15 104 22 116/64 (81) 11/26/17 09:30 100 70 11/27/17 11/27/17 11/27/17 07:00 15:00 23:00 Output Total 850 ml Balance -850 ml Result Diagram: 11/27/17 0303 11/27/17 0303 Laboratory Results Laboratory Tests Test 11/26/17 11:00 11/26/17 12:05 11/26/17 17:28 11/27/17 03:03 Nasal Screen MRSA (PCR) MRSA NOT DETECTED Troponin I 23.10 NG/ML 18.50 NG/ML Blood Gas Puncture Site RT RADIAL Blood Gas Patient Temperature 37.0 Blood Gas HCO3 24 mmol/L Blood Gas Base Excess 0.7 mmol/L Blood Gas Oxygen Saturation 92 % Arterial Blood pH 7.50 Arterial Blood Partial Pressure CO2 30 mmHg Arterial Blood Partial Pressure O2 73 mmHg Arterial Blood Oxygen Content 12.9 Vol % Arterial Blood Carboxyhemoglobin 2.6 % Arterial Blood Methemoglobin 1.1 % Blood Gas Hemoglobin 9.9 G/DL Oxygen Delivery Device BIPAP Blood Gas Ventilator Setting IPAP 18/EPAP 5 Blood Gas Inspired Oxygen 40 % White Blood Count 10.0 TH/MM3 Red Blood Count 2.99 MIL/MM3 Hemoglobin 8.9 GM/DL Hematocrit 27.5 % Mean Corpuscular Volume 92.1 FL Mean Corpuscular Hemoglobin 29.8 PG Mean Corpuscular Hemoglobin Concent 32.4 % Red Cell Distribution Width 17.5 % Platelet Count 254 TH/MM3 Mean Platelet Volume 5.9 FL Neutrophils (%) (Auto) 96.3 % Lymphocytes (%) (Auto) 1.8 % Monocytes (%) (Auto) 1.8 % Eosinophils (%) (Auto) 0.0 % Basophils (%) (Auto) 0.1 % Neutrophils # (Auto) 9.6 TH/MM3 Lymphocytes # (Auto) 0.2 TH/MM3 Monocytes # (Auto) 0.2 TH/MM3 Eosinophils # (Auto) 0.0 TH/MM3 Basophils # (Auto) 0.0 TH/MM3 CBC Comment DIFF FINAL Differential Comment Blood Urea Nitrogen 39 MG/DL Creatinine 1.40 MG/DL Random Glucose 131 MG/DL Calcium Level 8.6 MG/DL Phosphorus Level 3.7 MG/DL Magnesium Level 2.1 MG/DL Sodium Level 138 MEQ/L Potassium Level 3.7 MEQ/L Chloride Level 104 MEQ/L Carbon Dioxide Level 25.9 MEQ/L Anion Gap 8 MEQ/L Estimat Glomerular Filtration Rate 49 ML/MIN Lactic Acid Level 1.8 mmol/L B-Type Natriuretic Peptide 1540 PG/ML Culture Results Microbiology Date/Time Source Procedure Growth Status 11/26/17 05:30 Blood Peripheral Aerobic Blood Culture Pending Received 11/26/17 05:30 Blood Peripheral Anaerobic Blood Culture Pending Received 11/26/17 05:25 Blood Peripheral Aerobic Blood Culture Pending Received 11/26/17 05:25 Blood Peripheral Anaerobic Blood Culture Pending Received 11/26/17 09:18 Nasal Washing Influenza Types A,B Antigen (DIXIE) - Final Positive For Flu A Antigen Complete 11/26/17 10:55 Urine Clean Catch Legionella Antigen - Final PRESUMPTIVE NEGATIVE FOR LEGIONELLA P... Complete 11/26/17 10:55 Urine Clean Catch Streptococcus pneumoniae Antigen (M - Final PRESUMPTIVE NEGATIVE FOR STREPTOCOCCU... Complete Imaging Studies Last 24 hours Impressions Chest X-Ray 11/27/17 0400 Signed Impressions: Service Date/Time: Monday, November 27, 2017 05:48 - CONCLUSION: 1. Stable interstitial prominence may represent some baseline fibrosis. 2. Improving aeration in the left lung base with probable resolving atelectasis. 3. Stable masslike lesion adjacent to the aortic arch. Yash Keller MD Administered Medications Medications (Trade) Dose Ordered Sig/Sandy Route PRN Reason Start Time Stop Time Status Last Admin Dose Admin Sodium Chloride (NS Flush) 2 ml BID IV FLUSH 11/26/17 09:00 11/26/17 09:00 Pantoprazole Sodium (Protonix Inj) 40 mg DAILY IV PUSH 11/26/17 09:00 11/26/17 09:59 Albuterol/ Ipratropium (Duoneb Neb) 1 ampule Q6HR NEB INH 11/26/17 10:00 11/27/17 03:01 Senna/Docusate Sodium (Yu-Colace) 1 tab BID PO 11/26/17 09:00 11/26/17 20:10 Insulin Aspart (NovoLOG SUPPLEMENTAL SCALE) 1 ACHS SLIDING SCALE SQ 11/26/17 08:00 11/26/17 17:00 Aspirin (Aspirin Chew) 81 mg HS PO 11/26/17 21:00 11/26/17 20:10 Atorvastatin Calcium (Lipitor) 80 mg HS PO 11/26/17 21:00 11/26/17 20:11 Carvedilol (Coreg) 12.5 mg BID PO 11/26/17 09:00 11/26/17 20:10 Cholecalciferol (Vitamin D3) 2,000 units DAILY PO 11/26/17 09:00 11/26/17 09:09 Clopidogrel Bisulfate (Plavix) 75 mg DAILY PO 11/26/17 09:00 11/26/17 09:11 Ferrous Sulfate (Ferrous Sulfate) 325 mg DAILY PO 11/26/17 09:00 11/26/17 09:09 Fenofibrate (Tricor) 48 mg DAILY PO 11/26/17 09:00 11/26/17 09:09 Multivitamins (Theragran) 1 tab DAILY PO 11/26/17 09:00 11/26/17 09:11 Azithromycin 500 mg/Sodium Chloride 250 ml @ 250 mls/hr Q24H IV 11/26/17 08:00 11/27/17 08:04 Methylprednisolone Sodium Succinate (SoluMEDROL INJ) 40 mg Q12H IV PUSH 11/26/17 08:00 11/27/17 08:04 Cefepime HCl 2000 mg/Sodium Chloride 100 ml @ 200 mls/hr Q12H IV 11/26/17 09:00 11/26/17 20:10 Miscellaneous Information (Misc Nursing Information) Patient in critical care unit? Ass... [id number] .XX 11/26/17 10:45 11/26/17 10:45 Chlorhexidine Gluconate (Chlorhexidine 2% Cloth) 3 pack DAILY@04 TOPICAL 11/27/17 04:00 12/01/17 04:01 11/27/17 03:07 Heparin Sodium (Porcine) (Heparin Central Flush) 250 units UNSCH PRN IV FLUSH SEE PROTOCOL 11/26/17 17:30 11/27/17 03:19 Objective Remarks GENERAL: Elderly male, sitting up in bed on a BiPAP machine. He appears to be short of breath. SKIN: Warm and dry. HEAD: Normocephalic. EYES: No scleral icterus. No injection or drainage. NECK: Supple, trachea midline. No JVD or lymphadenopathy. LYMPHATIC: No adenopathy. CARDIOVASCULAR: Tachycardic, regular rate and rhythm, S1-S2 no obvious murmurs rubs gallops. RESPIRATORY: Prolonged expiratory phase, scattered basilar rhonchi. GASTROINTESTINAL: Abdomen soft, non-tender, nondistended. EXTREMITIES: No cyanosis, or edema. MUSCULOSKELETAL: Adequate muscle tone. NEUROLOGICAL: No obvious focal deficit. Awake, alert, and oriented x3. PSYCHIATRIC: Appropriate mood and affect; insight and judgment normal. He is anxious. 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 Status post combined chemoradiotherapy and he was also initiated on immunotherapy after completion of chemoradiotherapy last week. Now presenting with non-ST elevation VA, influenza A and hypoxic respiratory failure. He is currently in the ICU at the [facility] on a BiPAP. A heparin drip has been initiated along with dual antiplatelet therapy. Plan 1. Non-small cell carcinoma of the left lung: Future systemic therapy on hold. I think it may be most reasonable for him to be on observation alone given the severity of his pulmonary fibrosis and the negative prognostic implications of this diagnosis. I did talk to the patient about this this morning. Case was discussed with the patient's nurse. Case was discussed with the candy maker as well. He will likely require a cardiac catheterization but not until he stabilizes from a pulmonary standpoint. Josesito Fisher MD Nov 27, 2017 09:29
--- NOTE | 2017-11-27 09:29 | HHI.CCPN ---
Subjective Remarks/Hospital Course Hospital Course: This is a 77-year-old male that presented to [facility] emergency department with increasing respiratory distress beginning at 4 AM. 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 The patient continues on chemotherapy and his oncologist is Dr. Josesito Fisher. He completed rounds of carboplatin and Taxol in 09/2017. He also received previous radiation therapy in 2017. He last received immunotherapy on 11/24/17 and stated that he had previously had symptoms very similar 48 hours post treatment. In review of the medical records the patient has been having worsening dyspnea and having increasing oxygen requirements. He was last seen in Dr. Fisher's office with dyspnea with O2 saturation in the 70s on 11/24/2017 and received oxygen and O2 saturation increased to 93%, and was started on prednisone 20 mg twice daily with plans for subsequent taper. His respiratory distress was thought to be secondary to an inflammatory response. the patient at that time was instructed to continue to utilize oxygen supplementation. The patient normally utilizes CPAP at night secondary to obstructive sleep apnea. The patient also has a history of smoking, COPD and pulmonary fibrosis. His technical sales consultant is Dr. Ghanshyam Gaines. In the ED imaging and laboratory studies were obtained the patient was noted to have a WBC count of 17, and chest x-ray revealed increasing patchy interstitial infiltrates in the mid and lower lungs without consolidation. The patient was noted to have an elevated BNP. Lasix 80 mg IV was given. Patient was placed on BiPAP on 100%, with resultant PaO2 of 87. The patient's medical history is also significant for the fact the patient has coronary artery disease critical care medicine was consulted. Subjective: 11/27: trop increased significantly to 20 overnight. patient remains chest pain free. still desat quickly off bipap. flu+ and started on tamiflu. patient has very poor insight into chronic medical problems and asks when he will be ready to go home. we had long discussion about his acute life-threatening illnesses on top of end-stage chronic medical conditions. discussed at length with Dr. Wright and Dr. Fisher today plan of care from an oncologic and cardiac standpoint. will certainly need ischemic work-up this hospital admission, but influenza pneumonia and acute hypoxic respiratory failure are far more life- threatening currently. Objective Vital Signs Date Time Temp Pulse Resp B/P (MAP) Pulse Ox O2 Delivery O2 Flow Rate FiO2 11/27/17 06:00 80 19 124/68 (86) 94 11/27/17 04:00 96.2 11/26/17 20:35 3.00 11/26/17 19:25 35 11/26/17 16:45 Nasal Cannula Intake and Output 11/27/17 11/27/17 11/28/17 08:00 16:00 00:00 Output Total 850 ml Balance -850 ml Result Diagram: 11/27/17 0303 11/27/17 0303 Other Results Microbiology Date/Time Source Procedure Growth Status 11/26/17 09:18 Nasal Washing Influenza Types A,B Antigen (DIXIE) - Final Positive For Flu A Antigen Complete 11/26/17 10:55 Urine Clean Catch Legionella Antigen - Final PRESUMPTIVE NEGATIVE FOR LEGIONELLA P... Complete 11/26/17 10:55 Urine Clean Catch Streptococcus pneumoniae Antigen (M - Final PRESUMPTIVE NEGATIVE FOR STREPTOCOCCU... Complete Laboratory Tests Test 11/26/17 12:05 Blood Gas Puncture Site RT RADIAL Blood Gas Patient Temperature 37.0 Blood Gas HCO3 24 mmol/L (22-26) Blood Gas Base Excess 0.7 mmol/L (-2-2) Blood Gas Oxygen Saturation 92 % (90-100) Arterial Blood pH 7.50 (7.380-7.420) Arterial Blood Partial Pressure CO2 30 mmHg (38-42) Arterial Blood Partial Pressure O2 73 mmHg (61-120) Arterial Blood Oxygen Content 12.9 Vol % (12.0-20.0) Arterial Blood Carboxyhemoglobin 2.6 % (0-4) Arterial Blood Methemoglobin 1.1 % (0-2) Blood Gas Hemoglobin 9.9 G/DL (12.0-16.0) Oxygen Delivery Device BIPAP Blood Gas Ventilator Setting IPAP 18/EPAP 5 Blood Gas Inspired Oxygen 40 % Imaging Last Impressions Chest X-Ray 11/26/17 0000 Signed Impressions: Service Date/Time: Sunday, November 26, 2017 05:18 - CONCLUSION: Interval development of patchy diffuse bilateral interstitial infiltrates. Gus Carmona MD Objective Remarks GENERAL: This is a elderly male, lying in bed, on BiPAP. SKIN: Warm and dry. HEAD: Atraumatic. Normocephalic. EYES: Pupils equal and round. 3 mm and brisk. no scleral icterus. No injection or drainage. Extraocular movement intact ENT: No nasal bleeding or discharge. Mucous membranes pink and moist. NECK: Trachea midline. No JVD. CARDIOVASCULAR: Normal rate, regular rhythm. sinus. RESPIRATORY: No accessory muscle use. On BiPAP. not tachypneic. GASTROINTESTINAL: Abdomen soft, non-tender, obese nondistended. No guarding. MUSCULOSKELETAL: Extremities without clubbing, cyanosis, or edema. No obvious deformities. NEUROLOGICAL: GCS 15 .awake and alert. RASS 0. No gross focal/sensory deficits. Follows commands in all 4 extremities. A/P Problem List: (1) Coronary artery disease ICD Code: I25.10 - Atherosclerotic heart disease of [place] coronary artery without angina pectoris Status: Chronic (2) Benign hypertension ICD Code: I10 - Essential (primary) hypertension Status: Chronic (3) COPD with exacerbation ICD Code: J44.1 - Chronic obstructive pulmonary disease with (acute) exacerbation Status: Acute (4) Squamous cell carcinoma of left lung ICD Code: C34.92 - Malignant neoplasm of unspecified part of left bronchus or lung (5) Interstitial edema ICD Code: R60.9 - Edema, unspecified Status: Acute (6) Pulmonary fibrosis ICD Code: J84.10 - Pulmonary fibrosis, unspecified Status: Chronic (7) Lung cancer ICD Code: C34.90 - Malignant neoplasm of unspecified part of unspecified bronchus or lung (8) Respiratory failure with hypoxia ICD Code: J96.91 - Respiratory failure, unspecified with hypoxia Status: Acute (9) Chronic kidney disease, stage 3 ICD Code: N18.3 - Chronic kidney disease, stage 3 (moderate) (10) GERD (gastroesophageal reflux disease) ICD Code: K21.9 - Gastro-esophageal reflux disease without esophagitis (11) Obstructive sleep apnea ICD Code: G47.33 - Obstructive sleep apnea (adult) (pediatric) (12) Hyperlipidemia ICD Code: E78.5 - Hyperlipidemia, unspecified Assessment and Plan Assessment This is a 77-year-old male with severe end-stage COPD and pulmonary fibrosis, 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 Very critically ill. appreciate both cardiology, pulmonary, and oncology input. Have had discussions with all consultants today: will need work-up for ischemia, but will focus on pulmonary issues today. will also get palliative care involved, as almost all of the patient's acute and chronic medical problems are potentially life-ending, and together, he has a very high risk of dying from these illnesses. I have had a long conversation with him, but I do think he lacks some insight into how ill he has been for some time now. Remain in ICU. will do everything we can to avoid intubation and mechanical ventilation, as a course of mechanical ventilation certainly may be terminal or permanent for him. Remains very critically ill. Plan by systems: Neurologic: Glaucoma Insomnia Neuro checks per ICU protocol Patient normally takes Zoldipiem at night will hold for now Obtain information regarding medication for glaucoma from family Respiratory: Acute hypoxemic respiratory failure Acute COPD exacerbation Obstructive sleep apnea Poorly differentiated squamous cell carcinoma of the lung Severe end-stage Pulmonary fibrosis Influenza pneumonia Maintain O2 sat greater than 92% Maintain patient on CPAP at night normally uses CPAP at home at night Patient previously on prednisone 20 mg twice daily with a tentative plan for taper. We will continue methylprednisolone 40 mg twice daily Duo nebs every 6 hours scheduled and every 2 hours as needed Continue Anoro Ellipta inhaler 62.5- 25 mcgs/day Consult patient's personal technical sales consultant- Dr. Ghanshyam Gaines 11/26ches [id number] patchy interstitial infiltrates mid and lower lungs without consolidation start tamiflu. Cardiovascular: Coronary artery disease Acute systolic heart failure Hypertension Acute NSTEMI BNP elevated and rising, continue to monitor troponins uptrending: continue to trend heparin drip cardiology consult Continue carvedilol 12.5 mg twice daily, aspirin 81/day, atorvastatin 80 mg at at bedtime Renal: Chronic kidney disease stage III BPH Patient received Lasix 80 mg monitor diuretic effect -- Strict I/Os FEN/GI: GERD Hyperlipidemia Hep-Lock IV Electrolytes per ICU protocol Monitor BMP slowly advance diet. Bowel regimen Patient normally takes Protonix at home will continue Continue fenofibrate 54 mg/day, multivitamin/day Heme/ID: Status post chemo/RT 09/17 Immunotherapy Leukocytosis Anemia Influenza pneumonia Heme Onc--Dr. Fisher, patient received immunotherapy Durvalumab on 11/24/17 Obtain blood, sputum culture WBC count 17 may be secondary to prednisone, but cannot rule out possible immunosuppression Initiate empiric antibiotics cefepime and azithromycin will de-escalate at 48h if negative. influenza A + 10 units ferrous sulfate 325/day Obtain / trend lactate levels Endocrine: Glucose monitoring per ICU protocol. Low-dose regimen -- SSI Prophylaxis: GI Prophylaxis Protonix DVT Prophylaxis -- SCDs Heparin drip Lines: Right chest [id number] in situ, peripheral IVs 2 Dispo: my billing statement This patient remains critically ill with one or more organ systems which are or may become a threat to life. I have spent in excess of 66 minutes discontinuously in the care and management of this patient. This time is exclusive of procedures, and includes, but is not limited to, evaluation of the patient, review of the medical record, discussions with family, consultants, nursing staff, or respiratory therapy, and documentation in the medical record. Problem Qualifiers (1) Lung cancer: Abel Alvarez MD Nov 27, 2017 09:28
[2017-11-27] MEDS: MULTIVITAMIN TAB PO SCH (09:30)
[2017-11-27] MEDS: CEFEPIME INJ 2,000 MG in SODIUM CHLORIDE 0.9% INJ 100 ML IV SCH ×2 (09:30→21:36)
[2017-11-27] MEDS: FERROUS SULFATE 325 MG (65 MG ELEMENTAL IRON) TAB PO SCH (09:30)
[2017-11-27] MEDS: CARVEDILOL 12.5 MG TAB PO SCH ×2 (09:30→21:42)
[2017-11-27] MEDS: CHOLECALCIFEROL (VIT D3) 1000 UNIT TAB PO SCH (09:30)
[2017-11-27] MEDS: FENOFIBRATE 48 MG TAB PO SCH (09:31)
[2017-11-27] MEDS: SODIUM CHLORIDE 0.9% FLUSH 10 ML FLUSH IV FLUSH SCH ×2 (09:31→21:38)
[2017-11-27] MEDS: DOCUSATE SODIUM 50 MG/SENNA 8.6 MG TAB PO SCH ×2 (09:31→21:54)
[2017-11-27] MEDS: CLOPIDOGREL 75 MG TAB PO SCH (09:31)
[2017-11-27] MEDS: OSELTAMIVIR PHOSPHATE 75 MG CAP PO SCH ×2 (09:31→21:41)
[2017-11-27 09:36] LABS: HEMATOCRIT 28.7 % (39.0-51.0); HEMOGLOBIN 9.3 GM/DL (13.0-17.0); MEAN CELL VOLUME 92.1 FL (80.0-100.0); MEAN CORPUSCULAR HEMOGLOBIN 29.8 PG (27.0-34.0); MEAN CORPUSCULAR HGB CONC 32.4 % (32.0-36.0); MEAN PLATELET VOLUME 6.1 FL (7.0-11.0); PLATELET COUNT 279 TH/MM3 (150-450); RED BLOOD COUNT 3.12 MIL/MM3 (4.50-5.90); RED CELL DISTRIBUTION WIDTH 17.5 % (11.6-17.2); WHITE BLOOD COUNT 13.5 TH/MM3 (4.0-11.0)
[2017-11-27 09:51] LABS: INTERNATIONAL NORMALIZED RATIO 1.1 RATIO; PROTHROMBIN TIME - PATIENT 11.3 SEC (9.8-11.6)
--- NOTE | 2017-11-27 14:36 | PD.CONS ---
Consult Service Palliative Care . Consult Requested By Dr. Alvarez . Primary Care Physician Saray Fox Do, MD . Reason for Consultation a. To assist with evaluation and management of symptoms including: dyspnea, anxiety b. To assist medical decision maker(s) with: better understanding of current medical conditions; weighing benefits/burdens of medical treatment options; making medical treatment decisions. . HPI History of Present Illness Mr. Mayorga is a 77-year-old male with non-small cell lung cancer, pulmonary fibrosis, COPD, obesity, CKD, borderline diabetes, PAD, hyperlipidemia, hypertension and BPH who presented to the ED on 11/26/2017 with complaints of sudden onset shortness of breath that began 1 hour earlier. Patient's climatology teacher is Dr. Jose Gaines; his oncologist is Dr. Fisher. 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 The patient continued on chemotherapy and completed rounds of carboplatin and Taxol in 09/2017. He also received previous radiation therapy in 2016. He last received immunotherapy on 11/24/17 and stated that he had previously had similar symptoms 48 hours post treatment. Mr. Mayorga was last seen in Dr. Fisher 's office with dyspnea with O2 saturation in the 70s on 11/24/2017, and was he was started on supplemental oxygen and prednisone 20 mg twice daily with plans for subsequent taper. His respiratory distress was thought to be secondary to an inflammatory response. the patient at that time was instructed to continue to utilize oxygen supplementation. He normally uses CPAP at night secondary to obstructive sleep apnea. Additional diagnostic data: * Vital signs: Pulse 143, respirations 40, BP 131/101, oxygen saturation 45% on nonrebreather (increasing to 73% on BiPAP) and tympanic temp of 100.9. * WBC: 17.5, hemoglobin 11.1, hematocrit 33.0, platelets 349, neutrophils 86.3% * Sodium: 140, potassium 4.4, chloride 104, carbon dioxide 19.5, glucose 293, calcium 8.8, magnesium 2.0 * BUN: 30, creatinine 1.60, GFR 42 * Lactic acid: 8.5 * Total bilirubin: 0.8, AST 23, ALT 24, alkaline phosphatase 65 * Troponin: 0.11 * BNP: 826 * Total protein: 7.5, albumin 2.8 * Urinalysis-normal * Chest x-ray showed interval development of patchy diffuse bilateral interstitial infiltrate * Normal ultrasound of bilateral legs. * EKG shows sinus tachycardia with a rate of 131 and left anterior fascicular block. There is questionable ST elevation V2 through V5. Patient was admitted to the intensive care unit for further evaluation and medical management; patient was started on broad-spectrum antibiotics. Initial testing in the ED revealed the patient was influenza A positive; BNP was elevated as well as mildly elevated troponin level. Patient was started on Tamiflu and broad-spectrum antibiotics. Cardiology, pulmonology and oncology were consulted. Dr. Wright (cardiology) evaluated the patient secondary to myocardial infarction. Troponin levels were mildly elevated in the ED but became severely elevated in the following 24 hours, greater than 23. Per cardiology, patient likely has significantly underlying coronary disease and his respiratory distress elicited an OR. However, primary acute coronary syndrome is also possible. Troponins are trending downward and the patient is symptomatic. Patient was started on a heparin drip and medical therapy including ASA, Plavix and statin as well as a low dose beta-susan. Recommendations for an ischemic workup in the future. Palliative Care was consulted to assist with symptom management and to discuss with the family the benefits and burdens of her current illnesses and the options regarding future care. One exam, the patient is alert and oriented to person place and situation. Patient denies pain. He endorses intermittent dyspnea with any activity and anxiety that is exacerbated by his shortness of breath and concerns related to his overall well-being. Palliative care met with the patient and his and had a lengthy discussion about the patient's acute life threatening illnesses in addition to end-stage chronic medical conditions. Patient verbalizes understanding that he is critically ill with multiple comorbidities, but states he intends to intends to survive this hospitalization stating he has things he needs to take care of before he goes anywhere. Patient and his open to having further discussions about medical treatment goals and completion of written advanced directives in the upcoming days. . Function/Cognitive Trajectory Patient has a long-standing history of COPD and pulmonary fibrosis. 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 The patient continued on chemotherapy and completed rounds of carboplatin and Taxol in 09/2017. He also received previous radiation therapy in 2016. He last received immunotherapy on 11/24/17. . Review of Systems ROS Limitations: Clinical Condition Constitutional: COMPLAINS OF: Weight loss (Approximately 20 pound weight loss in the past 6 months), Generalized weakness Respiratory: COMPLAINS OF: Cough, Hemoptysis, Shortness of breath Cardiovascular: COMPLAINS OF: Dyspnea on Exertion, DENIES: Lower Extremity Edema Gastrointestinal: DENIES: Black stools, Bloody stools, Diarrhea, Nausea, Vomiting Hematologic/Lymphatics: COMPLAINS OF: Bruising Neurologic: DENIES: Seizures, Speech Problems Psychiatric: COMPLAINS OF: Anxiety, DENIES: Confusion Past Family Social History Coded Allergies: No Known Allergies (Unverified Allergy, Unknown, 11/26/17) Past Medical History Non-small cell carcinoma of the lung Pulmonary fibrosis COPD Obesity Chronic kidney disease, stage III GERD Glaucoma Borderline diabetes Peripheral arterial disease Hyperlipidemia Hypertension BPH Past Surgical History Tonsillectomy-age 7 years Thoracotomy performed in 04/2017 with wedge resection of the left upper lobe lung mass Right femoral arterial bypass surgery . Reported Medications Anoro Ellipta Inh (Umeclidinium/Vilanterol) 62.5-25 Mcg/Act Aero 1 Puff INH DAILY Zolpidem (Zolpidem Tartrate) 10 Mg Tab 10 Mg PO HS PRN Atorvastatin (Atorvastatin Calcium) 80 Mg Tab 80 Mg PO HS Co Q-10 (Coenzyme Q10 (Ubidecarenone)) 200 Mg Cap 1 Tab PO BID B-Tseopg-k-Cysteine (Acetylcysteine (Nutrient)) 600 Mg Cap 1 Tab PO BID D3 Super Strength (Cholecalciferol) 2,000 Unit Cap 2,000 Units PO DAILY Feosol (Ferrous Sulfate) 325 Mg (65 Mg Iron) Tab 1 Tab PO DAILY Fenofibrate 54 Mg Tab 54 Mg PO DAILY Multiple Vitamin 1 Tab 1 Tab PO DAILY Pantoprazole (Pantoprazole Sodium) 40 Mg Tab 40 Mg PO DAILY Plavix (Clopidogrel Bisulfate) 75 Mg Tab 75 Mg PO DAILY Aspirin Low Dose (Aspirin) 81 Mg Chew 81 Mg PO HS . Current Medications Medications (Trade) Dose Ordered Sig/Sandy Route Start Time Stop Time Status Last Admin (NS Flush) 2 ml UNSCH PRN IV FLUSH 11/26/17 07:00 (NS Flush) 2 ml BID IV FLUSH 11/26/17 09:00 11/27/17 09:31 (Tylenol) 650 mg Q6H PRN PO 11/26/17 07:00 (Protonix Inj) 40 mg DAILY IV PUSH 11/26/17 09:00 11/27/17 09:28 (Zofran Inj) 4 mg Q6H PRN IV PUSH 11/26/17 07:00 (Duoneb Neb) 1 ampule Q6HR NEB INH 11/26/17 10:00 11/27/17 03:01 (Duoneb Neb) 1 ampule Q2HR NEB PRN INH 11/26/17 07:00 (Yu-Colace) 1 tab BID PO 11/26/17 09:00 11/27/17 09:31 (Milk Of Magnesia Liq) 30 ml Q12H PRN PO 11/26/17 07:00 (Senokot) 17.2 mg Q12H PRN PO 11/26/17 07:00 (Dulcolax Supp) 10 mg DAILY PRN RECTAL 11/26/17 07:00 (Lactulose Liq) 30 ml DAILY PRN PO 11/26/17 07:00 (D50w (Vial) Inj) 50 ml UNSCH PRN IV PUSH 11/26/17 07:15 (Glucagon Inj) 1 mg UNSCH PRN OTHER 11/26/17 07:15 (NovoLOG SUPPLEMENTAL SCALE) 1 ACHS SLIDING SCALE SQ 11/26/17 08:00 11/26/17 17:00 (Aspirin Chew) 81 mg HS PO 11/26/17 21:00 11/26/17 20:10 (Lipitor) 80 mg HS PO 11/26/17 21:00 11/26/17 20:11 (Coreg) 12.5 mg BID PO 11/26/17 09:00 11/27/17 09:30 (Vitamin D3) 2,000 units DAILY PO 11/26/17 09:00 11/27/17 09:30 (Plavix) 75 mg DAILY PO 11/26/17 09:00 11/27/17 09:31 (Ferrous Sulfate) 325 mg DAILY PO 11/26/17 09:00 11/27/17 09:30 (Tricor) 48 mg DAILY PO 11/26/17 09:00 11/27/17 09:31 (Theragran) 1 tab DAILY PO 11/26/17 09:00 11/27/17 09:30 Azithromycin 500 mg/Sodium Chloride 250 ml @ 250 mls/hr Q24H IV 11/26/17 08:00 11/27/17 08:04 (SoluMEDROL INJ) 40 mg Q12H IV PUSH 11/26/17 08:00 11/27/17 08:04 (Lasix Inj) 40 mg DAILY IV PUSH 11/27/17 09:00 11/27/17 09:29 Cefepime HCl 2000 mg/Sodium Chloride 100 ml @ 200 mls/hr Q12H IV 11/26/17 09:00 11/27/17 09:30 ([facility] Nursing Information) Patient in critical care unit? Ass... [id number] .XX 11/26/17 10:45 11/26/17 10:45 (Chlorhexidine 2% Cloth) 3 pack DAILY@04 TOPICAL 11/27/17 04:00 12/01/17 04:01 11/27/17 03:07 (Chlorhexidine 2% Cloth) 3 pack UNSCH PRN TOPICAL 11/26/17 10:45 12/01/17 10:31 (Heparin Central Flush) 500 units UNSCH IV FLUSH 11/26/17 17:30 (NS Flush) 5 ml UNSCH PRN IVF 11/26/17 17:30 (Heparin Central Flush) 250 units UNSCH PRN IV FLUSH 11/26/17 17:30 11/27/17 03:19 Heparin Sodium/ Dextrose 250 ml @ 10 mls/hr TITRATE IV 11/27/17 08:00 11/27/17 10:31 (Tamiflu) 75 mg BID PO 11/27/17 09:00 11/27/17 09:31 Family History Family history is significant for coronary artery disease. Father at the age of 51 from a myocardial infarction. Patient's mother at the age of 92. . Substance Use Tobacco: Patient smoked 1-1/2 packs of cigarettes for close to 40 years; he also reports extensive secondhand smoke exposure as well. Alcohol: Prescription med abuse: Illicits: Psychosocial History Patient is originally from the [place], [place] area. 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 He and his have been for >54 years. They have 2 2 daughters who still live in [place]. The patient is now retired and lives in [place] with his . . Spiritual/Cultural Factors Nondenominational . Documented care wishes: No known documented care wishes have been completed . Today's verbally stated goals: Patient has asked, "When will I be outta here." He verbalizes understanding that he is critically ill but states he intends to survive this hospitalization stating he has things he needs to take care of before he goes anywhere. . Family/friends goals: Patient's verbalizes support of patient's medical treatment goals; she to expresses aggressive goals. . Ethical and Legal Issues No known ethical or legal issues impacting care at this time. . Physical Exam Vital Signs Date Time Temp Pulse Resp B/P (MAP) Pulse Ox O2 Delivery O2 Flow Rate FiO2 11/27/17 12:00 90 11/27/17 12:00 90 31 127/65 (85) 91 11/27/17 11:00 96 33 139/70 (93) 92 11/27/17 10:28 94 Nasal Cannula 4.00 11/27/17 10:00 94 11/27/17 10:00 94 23 135/65 (88) 92 11/27/17 09:00 96 28 136/77 (96) 96 11/27/17 08:00 86 11/27/17 08:00 86 30 129/67 (87) 93 11/27/17 07:00 98.8 80 17 125/65 (85) 95 11/27/17 06:00 80 19 124/68 (86) 94 11/27/17 06:00 80 11/27/17 05:00 72 124/61 (82) 93 11/27/17 04:00 96.2 76 22 117/49 (71) 96 11/27/17 04:00 76 11/27/17 03:00 100 44 125/65 (85) 94 11/27/17 02:00 74 11/27/17 02:00 74 22 103/55 (71) 96 11/27/17 01:00 80 17 106/53 (70) 89 11/27/17 00:00 80 11/27/17 00:00 96.7 80 24 102/51 (68) 96 11/26/17 23:00 82 23 109/59 (76) 90 11/26/17 22:00 88 25 133/61 (85) 90 11/26/17 22:00 88 11/26/17 21:00 88 18 108/62 (77) 94 11/26/17 20:35 91 3.00 11/26/17 20:00 97.8 98 31 140/75 (96) 90 11/26/17 20:00 98 11/26/17 19:25 95 35 11/26/17 19:00 96 18 115/60 (78) 94 11/26/17 18:00 90 11/26/17 18:00 98 24 132/72 (92) 93 11/26/17 17:50 96 35 11/26/17 17:00 92 20 118/62 (80) 89 11/26/17 16:45 94 Nasal Cannula 4.00 11/26/17 16:00 98.5 86 19 116/65 (82) 94 11/26/17 16:00 92 11/26/17 15:00 84 18 116/62 (80) 96 11/26/17 15:00 84 . Exam CONSTITUTIONAL/GENERAL: This is an elderly, male patient on nasal cannula in no acute distress TUBES/LINES/DRAINS: Implanted VAD, PIV, nasal cannula SKIN: No jaundice, rashes, or lesions. Ecchymoses on upper extremities. No wounds seen anteriorly. Skin temperature appropriate. Not diaphoretic. HEAD: Atraumatic. Normocephalic. EYES: Pupils equal and round and reactive. Extraocular motions intact. No scleral icterus. No injection or drainage. Fundi not examined. ENT: Hearing grossly normal. Nose without bleeding or purulent drainage. Oral mucosa moist and pink NECK: Trachea midline. Supple, nontender. No palpable thyroid enlargement or nodularity. CARDIOVASCULAR: Regular rate and rhythm without murmurs, gallops, or rubs. No JVD. Peripheral pulses symmetric. RESPIRATORY/CHEST: Oxygen saturation in the low 90s on supplemental oxygen via nasal cannula. Breath sounds diminished bilaterally. No wheezes, rales, or rhonchi. + Hemoptysis GASTROINTESTINAL: Abdomen soft, non-tender, nondistended. No hepato-splenomegaly , or palpable masses. No guarding. Bowel sounds present. GENITOURINARY: Without palpable bladder distension. MUSCULOSKELETAL: Extremities without clubbing, cyanosis, or edema. No mottling or clubbing. LYMPHATICS: No palpable cervical or supraclavicular adenopathy. NEUROLOGICAL: Awake and alert. Follows commands. Cognitively sharp. Moves all extremities. PSYCHIATRIC: No obvious anxiety/depression on exam. No apparent hallucinations or other psychotic thought process. ,. Diagnostic Tests Laboratory Laboratory Tests Test 11/26/17 05:20 11/26/17 05:35 11/26/17 06:20 11/26/17 08:25 White Blood Count 17.5 TH/MM3 (4.0-11.0) Red Blood Count 3.53 MIL/MM3 (4.50-5.90) Hemoglobin 11.1 GM/DL (13.0-17.0) Hematocrit 33.0 % (39.0-51.0) Mean Corpuscular Volume 93.5 FL (80.0-100.0) Mean Corpuscular Hemoglobin 31.4 PG (27.0-34.0) Mean Corpuscular Hemoglobin Concent 33.5 % (32.0-36.0) Red Cell Distribution Width 17.5 % (11.6-17.2) Platelet Count 349 TH/MM3 (150-450) Mean Platelet Volume 6.6 FL (7.0-11.0) Neutrophils (%) (Auto) 86.3 % (16.0-70.0) Lymphocytes (%) (Auto) 5.7 % (9.0-44.0) Monocytes (%) (Auto) 2.1 % (0.0-8.0) Eosinophils (%) (Auto) 5.8 % (0.0-4.0) Basophils (%) (Auto) 0.1 % (0.0-2.0) Neutrophils # (Auto) 15.1 TH/MM3 (1.8-7.7) Lymphocytes # (Auto) 1.0 TH/MM3 (1.0-4.8) Monocytes # (Auto) 0.4 TH/MM3 (0-0.9) Eosinophils # (Auto) 1.0 TH/MM3 (0-0.4) Basophils # (Auto) 0.0 TH/MM3 (0-0.2) CBC Comment DIFF FINAL Differential Comment D-Dimer Quantitative (PE/DVT) 12.18 MG/L FEU (0.00-0.50) Blood Urea Nitrogen 30 MG/DL (7-18) Creatinine 1.60 MG/DL (0.60-1.30) Random Glucose 293 MG/DL (74-106) Total Protein 7.5 GM/DL (6.4-8.2) Albumin 2.8 GM/DL (3.4-5.0) Calcium Level 8.8 MG/DL (8.5-10.1) Magnesium Level 2.0 MG/DL (1.5-2.5) Alkaline Phosphatase 65 U/L (45-117) Aspartate Amino Transf (AST/SGOT) 23 U/L (15-37) Alanine Aminotransferase (ALT/SGPT) 24 U/L (12-78) Total Bilirubin 0.8 MG/DL (0.2-1.0) Sodium Level 140 MEQ/L (136-145) Potassium Level 4.4 MEQ/L (3.5-5.1) Chloride Level 104 MEQ/L (98-107) Carbon Dioxide Level 19.5 MEQ/L (21.0-32.0) Anion Gap 17 MEQ/L (5-15) Estimat Glomerular Filtration Rate 42 ML/MIN (>89) Lactic Acid Level 8.5 mmol/L (0.4-2.0) 1.2 mmol/L (0.4-2.0) Troponin I 0.11 NG/ML (0.02-0.05) B-Type Natriuretic Peptide 826 PG/ML (0-100) Blood Gas Puncture Site LT RADIAL Blood Gas Patient Temperature 98.6 Blood Gas HCO3 20 mmol/L (22-26) Blood Gas Base Excess -4.8 mmol/L (-2-2) Blood Gas Oxygen Saturation 92 % (90-100) Arterial Blood pH 7.33 (7.380-7.420) Arterial Blood Partial Pressure CO2 40 mmHG (38-42) Arterial Blood Partial Pressure O2 87 mmHG (61-120) Arterial Blood Oxygen Content 14.4 Vol % (12.0-20.0) Arterial Blood Carboxyhemoglobin 2.5 % (0-4) Arterial Blood Methemoglobin 1.0 % (0-2) Blood Gas Hemoglobin 11.1 G/DL (12.0-16.0) Oxygen Delivery Device BIPAP Blood Gas Ventilator Setting IPAP15/PEEP5 Blood Gas Inspired Oxygen 100 % Urine Color YELLOW (YELLW/STRAW) Urine Turbidity CLEAR (CLEAR) Urine pH 5.5 (5.0-8.5) Urine Specific [place] 1.020 (1.002-1.035) Urine Protein TRACE mg/dL (NEG-TRACE) Urine Glucose (UA) NEG mg/dL (NEG) Urine Ketones NEG mg/dL (NEG) Urine Occult Blood SMALL (NEG) Urine Nitrite NEG (NEG) Urine Bilirubin NEG (NEG) Urine Urobilinogen 0.2 MG/DL (LESS THAN Urine Leukocyte Esterase NEG (NEG) Urine RBC 0-3 /hpf (0-3) Urine WBC 0-2 /hpf (0-5) Urine Squamous Epithelial Cells 0-5 /hpf (0-5) Microscopic Urinalysis Comment CULT NOT INDICATED Test 11/26/17 11:00 11/26/17 12:05 11/26/17 17:28 11/27/17 03:03 Nasal Screen MRSA (PCR) MRSA NOT DETECTED (NOT Troponin I 23.10 NG/ML (0.02-0.05) 18.50 NG/ML (0.02-0.05) Blood Gas Puncture Site RT RADIAL Blood Gas Patient Temperature 37.0 Blood Gas HCO3 24 mmol/L (22-26) Blood Gas Base Excess 0.7 mmol/L (-2-2) Blood Gas Oxygen Saturation 92 % (90-100) Arterial Blood pH 7.50 (7.380-7.420) Arterial Blood Partial Pressure CO2 30 mmHg (38-42) Arterial Blood Partial Pressure O2 73 mmHg (61-120) Arterial Blood Oxygen Content 12.9 Vol % (12.0-20.0) Arterial Blood Carboxyhemoglobin 2.6 % (0-4) Arterial Blood Methemoglobin 1.1 % (0-2) Blood Gas Hemoglobin 9.9 G/DL (12.0-16.0) Oxygen Delivery Device BIPAP Blood Gas Ventilator Setting IPAP 18/EPAP 5 Blood Gas Inspired Oxygen 40 % White Blood Count 10.0 TH/MM3 (4.0-11.0) Red Blood Count 2.99 MIL/MM3 (4.50-5.90) Hemoglobin 8.9 GM/DL (13.0-17.0) Hematocrit 27.5 % (39.0-51.0) Mean Corpuscular Volume 92.1 FL (80.0-100.0) Mean Corpuscular Hemoglobin 29.8 PG (27.0-34.0) Mean Corpuscular Hemoglobin Concent 32.4 % (32.0-36.0) Red Cell Distribution Width 17.5 % (11.6-17.2) Platelet Count 254 TH/MM3 (150-450) Mean Platelet Volume 5.9 FL (7.0-11.0) Neutrophils (%) (Auto) 96.3 % (16.0-70.0) Lymphocytes (%) (Auto) 1.8 % (9.0-44.0) Monocytes (%) (Auto) 1.8 % (0.0-8.0) Eosinophils (%) (Auto) 0.0 % (0.0-4.0) Basophils (%) (Auto) 0.1 % (0.0-2.0) Neutrophils # (Auto) 9.6 TH/MM3 (1.8-7.7) Lymphocytes # (Auto) 0.2 TH/MM3 (1.0-4.8) Monocytes # (Auto) 0.2 TH/MM3 (0-0.9) Eosinophils # (Auto) 0.0 TH/MM3 (0-0.4) Basophils # (Auto) 0.0 TH/MM3 (0-0.2) CBC Comment DIFF FINAL Differential Comment Blood Urea Nitrogen 39 MG/DL (7-18) Creatinine 1.40 MG/DL (0.60-1.30) Random Glucose 131 MG/DL (74-106) Calcium Level 8.6 MG/DL (8.5-10.1) Phosphorus Level 3.7 MG/DL (2.5-4.9) Magnesium Level 2.1 MG/DL (1.5-2.5) Sodium Level 138 MEQ/L (136-145) Potassium Level 3.7 MEQ/L (3.5-5.1) Chloride Level 104 MEQ/L (98-107) Carbon Dioxide Level 25.9 MEQ/L (21.0-32.0) Anion Gap 8 MEQ/L (5-15) Estimat Glomerular Filtration Rate 49 ML/MIN (>89) Lactic Acid Level 1.8 mmol/L (0.4-2.0) B-Type Natriuretic Peptide 1540 PG/ML (0-100) Test 11/27/17 09:30 White Blood Count 13.5 TH/MM3 (4.0-11.0) Red Blood Count 3.12 MIL/MM3 (4.50-5.90) Hemoglobin 9.3 GM/DL (13.0-17.0) Hematocrit 28.7 % (39.0-51.0) Mean Corpuscular Volume 92.1 FL (80.0-100.0) Mean Corpuscular Hemoglobin 29.8 PG (27.0-34.0) Mean Corpuscular Hemoglobin Concent 32.4 % (32.0-36.0) Red Cell Distribution Width 17.5 % (11.6-17.2) Platelet Count 279 TH/MM3 (150-450) Mean Platelet Volume 6.1 FL (7.0-11.0) Prothrombin Time 11.3 SEC (9.8-11.6) Prothromb Time International Ratio 1.1 RATIO Activated Partial Thromboplast Time 28.0 SEC (24.3-30.1) . Result Diagram: 11/27/17 0930 11/27/17 0303 Microbiology Microbiology Date/Time Source Procedure Growth Status 11/26/17 05:30 Blood Peripheral Aerobic Blood Culture - Preliminary NO GROWTH IN 1 DAY Resulted 11/26/17 05:30 Blood Peripheral Anaerobic Blood Culture - Preliminary NO GROWTH IN 1 DAY Resulted 11/26/17 05:25 Blood Peripheral Aerobic Blood Culture - Preliminary NO GROWTH IN 1 DAY Resulted 11/26/17 05:25 Blood Peripheral Anaerobic Blood Culture - Preliminary NO GROWTH IN 1 DAY Resulted 11/26/17 09:18 Nasal Washing Influenza Types A,B Antigen (DIXIE) - Final Positive For Flu A Antigen Complete 11/26/17 10:55 Urine Clean Catch Legionella Antigen - Final PRESUMPTIVE NEGATIVE FOR LEGIONELLA P... Complete 11/26/17 10:55 Urine Clean Catch Streptococcus pneumoniae Antigen (M - Final PRESUMPTIVE NEGATIVE FOR STREPTOCOCCU... Complete . Imaging Last 72 hours Impressions Chest X-Ray 11/27/17 0400 Signed Impressions: Service Date/Time: Monday, November 27, 2017 05:48 - CONCLUSION: 1. Stable interstitial prominence may represent some baseline fibrosis. 2. Improving aeration in the left lung base with probable resolving atelectasis. 3. Stable masslike lesion adjacent to the aortic arch. Yash Keller MD Lower Extremity Ultrasound 11/26/17 0000 Signed Impressions: Service Date/Time: Sunday, November 26, 2017 07:46 - CONCLUSION: Normal examination. Adrian Farris MD Chest X-Ray 11/26/17 0000 Signed Impressions: Service Date/Time: Sunday, November 26, 2017 05:18 - CONCLUSION: Interval development of patchy diffuse bilateral interstitial infiltrates. Gus Carmona MD . Patient/Family Conference Present at Family Conference: Met with patient and his at bedside. . Family Conference Location: Bedside Issues Discussed: * Palliative care role, purpose, approach * Additional medical, psychosocial, and spiritual history * Patients general health, functional status, and cognitive changes in the months leading up to the current hospitalization * Patient/family understanding of the current medical problems * Patient/family understanding of prognosis * Patients goals of care as best understood from advance directives and/or conversations and/or values * Current medical treatment options and benefits/burdens of those options * Likely scenarios comparing ongoing aggressive care with a transition to comfort measures only * Questions answered to the best of my ability * Palliative care contact information provided . Assessment and Plan Disease Oriented Problem List: (1) Lung mass (2) Interstitial edema (3) Pulmonary fibrosis (4) Lung cancer (5) Benign hypertension (6) Coronary artery disease (7) Hyperlipidemia (8) GERD (gastroesophageal reflux disease) (9) Obstructive sleep apnea (10) COPD with exacerbation (11) Squamous cell carcinoma of left lung (12) Respiratory failure with hypoxia (13) Chronic kidney disease, stage 3 Symptom Scale: (1) Dyspnea 0-10 Scale: Unable to quantify (2) Anxiety 0-10 Scale: Unable to quantify Pertinent Non-Medical Issues Psychosocial: Patient is originally from the [place], [place] area. 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 He and his have been for >54 years. They have 2 2 daughters who still live in [place]. The patient is now retired and lives in [place] with his . Spiritual: Nondenominational Legal: Per [place] statutes, in the absence of written advanced directives healthcare proxy decision making falls to the patient's of 54+ years- Olga. Ethical issues impacting care: No known ethical issues impacting care at this time. Important Contacts Olga Mayorga, : [phone] . Prognosis Mr. Mayorga is a 77-year-old with a known history of COPD, pulmonary fibrosis and non-small cell lung cancer status post resection, chemo/radiation and immunotherapy. Currently admitted with influenza and acute hypoxic respiratory failure status post myocardial infarction. He is critically ill with acute life -threatening illnesses in addition to known end-stage chronic medical conditions. Patient is high risk for ongoing decline and complications. Should the patient's goals become comfort oriented, he would likely be hospice appropriate with a life expectancy <6 months. . Code Status: Full Code Plan * FULL CODE * Decision-making: Patient currently showing good insight and judgment related to his medical conditions. He understands that if he were to lose capacity for medical decision-making, [place] statutes state and the absence of written advanced directives healthcare proxy decision making falls to patient's . * AGGRESSIVE GOALS: Patient has asked, "When will I be outta here." He verbalizes understanding that he is critically ill but states he intends to survive this hospitalization stating he has things he needs to take care of before he goes anywhere.Patient's verbalizes support of patient's medical treatment goals; she to expresses aggressive goals. * Current medical treatment goals discussed with die maker bench stamping (Dr. Alvarez) and RN (Jennifer). * Palliative care contact information was provided to the patient and his family. * Symptom management: == Dyspnea: Patient has a known history of COPD, pulmonary fibrosis and non- small cell lung cancer. Patient presented to the ED with complaints of sudden, acute shortness of breath. Chest x-ray showed interval development of patchy diffuse bilateral interstitial infiltrate. Influenza A positive; BNP was also elevated. Patient was started on Tamiflu, broad-spectrum antibiotics, diuretic, Solu-Medrol and DuoNeb 's. Pulmonology following. == Anxiety: Multifactoral. Patient endorses anxiety secondary to his shortness of breath, concerns related to his medical well-being and feeling a loss of control. Medications may be a contributing factor. We discussed pharmacological as well as nonpharmacological management strategies. Patient would like to attempt to manage his feelings of anxiety without medications at this time. Palliative care will continue to follow this patient throughout his/her hospitaization to build rapport, assist with symptom managment and goal clarification. . Thank you for the opportunity to participate in the care of Mr. Mayorga. . Attestation To help prompt me to consider important information that might be impacting today's encounter and assessment, information from prior notes written by myself or my colleagues may have been "brought forward" into today's note. My signature on this note, however, is an attestation that I personally performed the exam, history, and/or decision-making noted today, and, unless otherwise indicated, the interactions with patient, family, and staff as well as the review of records all occurred today. I also attest that the listed assessment and stated plan reflect my best clinical judgment today based on the combination of historical information, prior notes, and today's exam/ interactions. When time spent is documented, it refers only to time spent today by the signer, or if indicated, combined time spent today by collaborating physician/nurse practitioner. . Maria R Conley Nov 27, 2017 14:36
--- NOTE | 2017-11-27 19:22 | ECHRPT ---
Indication: KS CONCLUSIONS Normal left ventricular size. Wall thickness is normal. The left ventricular systolic function is low normal with an estimated ejection fraction in the rang e of 50- 55%. The right ventricular wall thickness is moderately increased. The left atrial size is moderately dilated. The right atrial size is wbac-ee-oxnkmqfebd dilated. Moderate thickening of the mitral valve leaflets. Calcification of both mitral valve leaflets. Moderate mitral annular calcification. Zlnl-ei-wxrcuujd mitral valve regurgitation. Aortic valve sclerosis with moderate stenosis. Mild aortic valve regurgitation. There is mild to moderate tricuspid valve regurgitation. The estimated pulmonary arterial pressure is 53 mmHg. BP: 124 / 68 HR: 80 Rhythm: Sinus Technical Quality:Fair FINDINGS LEFT VENTRICLE Normal left ventricular size. Wall thickness is normal. The left ventricular systolic function is low normal with an estimated ejection fraction in the rang e of 50- 55%. RIGHT VENTRICLE The right ventricular wall thickness is moderately increased. LEFT ATRIUM The left atrial size is moderately dilated. RIGHT ATRIUM The right atrial size is ovzl-xv-ryvoenvajb dilated. ATRIAL SEPTUM Normal atrial septal thickness without atrial level shunting by limited color doppler interrogation. AORTA The aortic root and proximal ascending aorta are not well visualized. MITRAL VALVE Moderate thickening of the mitral valve leaflets. Calcification of both mitral valve leaflets. Moderate mitral annular calcification. Iwyq-vu-dgjtpwdj mitral valve regurgitation. AORTIC VALVE Aortic valve sclerosis is present. Moderate aortic stenosis. Mild aortic valve regurgitation. Aortic valve mean gradient is 21 mmHg. TRICUSPID VALVE There is mild to moderate tricuspid valve regurgitation. The estimated pulmonary arterial pressure is 53 mmHg. There is estimated moderate pulmonary hypertension present (range 50-60 mmHg). PULMONARY VALVE No pulmonary valve regurgitation or stenosis. VESSELS The inferior vena cava is normal in size. PERICARDIUM No pericardial effusion. Qiana Mendiola MD, FACC (Electronically Signed) Final Date:27 November 2017 19:21
--- NOTE | 2017-11-27 21:16 | EKG ---
Date Performed: 11/26/2017 Time Performed: 17:30:12 PTAGE: 77 years EKG: MULTIFOCAL ATRIAL TACHYCARDIA WITH FREQUENT VENTRICULAR PREMATURE COMPLEXES MARKED LEFT AXI S DEVIATION LEFT VENTRICULAR HYPERTROPHY AND ST-T CHANGE ABNORMAL ECG PREVIOUS TRACING : 11/26/2017 07.22 Since the previous tracing, no significant change noted DOCTOR: Quinton Riddle Interpretating Date/Time 11/27/2017 21:15:15
[2017-11-27] MEDS: ATORVASTATIN 40 MG TAB PO SCH (21:42)
[2017-11-27] MEDS: ASPIRIN 81 MG CHEW TAB PO SCH (21:43)
[2017-11-27] MEDS: ZOLPIDEM TARTRATE 10 MG TAB PO PRN (22:41)
[2017-11-28] VITALS (34 sets, daily range): BP systolic 119–165; BP diastolic 58–82; PULSE 66–100; RESP 20–47; TEMP 97.2–98; O2SAT 83–95
[2017-11-28] MEDS: RESP: ALBUTEROL 2.5 MG/IPRATROPIUM 0.5 MG NEB (SCH) INH ×4 (03:31→21:01)
[2017-11-28] MEDS: CHLORHEXIDINE GLUCONATE 2 % 1 PACK (2 CLOTHS)(taper/protocol) TOPICAL SCH (04:00)
--- NOTE | 2017-11-28 06:28 | PD.CARD.PN ---
Subjective Subjective Remarks The patient denies chest pain, palpitations, GI symptoms or bleeding. He has mild shortness of breath which is improved. Telemetry reveals sinus rhythm with PVCs. Echocardiogram shows normal LV function with moderate aortic stenosis, mild AI, mild to moderate MR. Chart reviewed. I did speak with Dr. Alvarez of critical care. Objective Medications Current Medications Medications (Trade) Dose Ordered Sig/Sandy Route Start Time Stop Time Status Last Admin (NS Flush) 2 ml UNSCH PRN IV FLUSH 11/26/17 07:00 (NS Flush) 2 ml BID IV FLUSH 11/26/17 09:00 11/27/17 21:38 (Tylenol) 650 mg Q6H PRN PO 11/26/17 07:00 (Protonix Inj) 40 mg DAILY IV PUSH 11/26/17 09:00 11/27/17 09:28 (Zofran Inj) 4 mg Q6H PRN IV PUSH 11/26/17 07:00 (Duoneb Neb) 1 ampule Q6HR NEB INH 11/26/17 10:00 11/28/17 03:31 (Duoneb Neb) 1 ampule Q2HR NEB PRN INH 11/26/17 07:00 (Yu-Colace) 1 tab BID PO 11/26/17 09:00 11/27/17 21:54 (Milk Of Magnesia Liq) 30 ml Q12H PRN PO 11/26/17 07:00 (Senokot) 17.2 mg Q12H PRN PO 11/26/17 07:00 (Dulcolax Supp) 10 mg DAILY PRN RECTAL 11/26/17 07:00 (Lactulose Liq) 30 ml DAILY PRN PO 11/26/17 07:00 (D50w (Vial) Inj) 50 ml UNSCH PRN IV PUSH 11/26/17 07:15 (Glucagon Inj) 1 mg UNSCH PRN OTHER 11/26/17 07:15 (NovoLOG SUPPLEMENTAL SCALE) 1 ACHS SLIDING SCALE SQ 11/26/17 08:00 11/26/17 17:00 (Aspirin Chew) 81 mg HS PO 11/26/17 21:00 11/27/17 21:43 (Lipitor) 80 mg HS PO 11/26/17 21:00 11/27/17 21:42 (Coreg) 12.5 mg BID PO 11/26/17 09:00 11/27/17 21:42 (Vitamin D3) 2,000 units DAILY PO 11/26/17 09:00 11/27/17 09:30 (Plavix) 75 mg DAILY PO 11/26/17 09:00 11/27/17 09:31 (Ferrous Sulfate) 325 mg DAILY PO 11/26/17 09:00 11/27/17 09:30 (Tricor) 48 mg DAILY PO 11/26/17 09:00 11/27/17 09:31 (Theragran) 1 tab DAILY PO 11/26/17 09:00 11/27/17 09:30 Azithromycin 500 mg/Sodium Chloride 250 ml @ 250 mls/hr Q24H IV 11/26/17 08:00 11/27/17 08:04 (SoluMEDROL INJ) 40 mg Q12H IV PUSH 11/26/17 08:00 11/27/17 21:39 Cefepime HCl 2000 mg/Sodium Chloride 100 ml @ 200 mls/hr Q12H IV 11/26/17 09:00 11/27/17 21:36 ([facility] [place] [facility] [place] Patient in critical care unit? Ass... Q361D .XX 11/26/17 10:45 11/26/17 10:45 (Chlorhexidine 2% Cloth) 3 pack DAILY@04 TOPICAL 11/27/17 04:00 12/01/17 04:01 11/28/17 04:00 (Chlorhexidine 2% Cloth) 3 pack UNSCH PRN TOPICAL 11/26/17 10:45 12/01/17 10:31 (Heparin Central Flush) 500 units UNSCH IV FLUSH 11/26/17 17:30 (NS Flush) 5 ml UNSCH PRN IVF 11/26/17 17:30 (Heparin Central Flush) 250 units UNSCH PRN IV FLUSH 11/26/17 17:30 11/27/17 03:19 Heparin Sodium/ Dextrose 250 ml @ 10 mls/hr TITRATE IV 11/27/17 08:00 11/27/17 10:31 (Tamiflu) 75 mg BID PO 11/27/17 09:00 11/27/17 21:41 (Ambien) 10 mg HS PRN PO 11/27/17 22:45 11/27/17 22:41 Vital Signs / I&O Vital Signs Date Time Temp Pulse Resp B/P (MAP) Pulse Ox O2 Delivery O2 Flow Rate FiO2 11/28/17 04:00 94 4.00 11/28/17 03:00 97.8 76 24 127/72 (90) 92 11/28/17 02:00 70 21 131/62 (85) 94 11/28/17 02:00 80 11/28/17 01:00 76 22 148/82 (104) 94 11/28/17 00:00 96 11/28/17 00:00 98.0 96 26 128/71 (90) 90 11/28/17 00:00 90 4.00 11/27/17 23:00 90 18 146/78 (100) 90 11/27/17 22:00 108 11/27/17 22:00 108 30 168/81 (110) 88 11/27/17 21:30 91 4.00 11/27/17 21:20 93 Nasal Cannula 4.00 11/27/17 21:00 92 23 147/76 (99) 88 11/27/17 20:00 92 16 133/71 (91) 89 11/27/17 20:00 95 11/27/17 19:00 90 Nasal Cannula 4.00 11/27/17 19:00 97.6 102 26 153/71 (98) 88 11/27/17 18:00 96 26 139/73 (95) 87 11/27/17 18:00 96 11/27/17 17:00 102 27 147/69 (95) 86 11/27/17 16:00 86 11/27/17 16:00 98.6 86 17 149/76 (100) 98 11/27/17 15:00 88 28 131/65 (87) 91 11/27/17 14:00 86 11/27/17 14:00 86 24 124/63 (83) 89 11/27/17 13:00 98.7 96 34 135/72 (93) 92 11/27/17 12:00 90 11/27/17 12:00 90 31 127/65 (85) 91 11/27/17 11:00 96 33 139/70 (93) 92 11/27/17 10:28 94 Nasal Cannula 4.00 11/27/17 10:00 94 11/27/17 10:00 94 23 135/65 (88) 92 11/27/17 09:00 96 28 136/77 (96) 96 11/27/17 08:00 86 11/27/17 08:00 86 30 129/67 (87) 93 11/27/17 07:00 98.8 80 17 125/65 (85) 95 I/O 11/27/17 11/27/17 11/27/17 11/28/17 11/28/17 11/28/17 07:00 15:00 23:00 07:00 15:00 23:00 Intake Total 350 ml 310 ml Output Total 850 ml 1020 ml 150 ml Balance -850 ml -670 ml -150 ml 310 ml IV Total 350 ml 310 ml Output Urine Total 850 ml 1020 ml 150 ml Physical Exam GENERAL: Well-nourished, well-developed patient in no apparent distress. SKIN: Warm and dry. NECK: JVD normal - less than or equal to 5 cm H20. CARDIOVASCULAR: Regular rate and rhythm without gallops, or rubs. 1/6 early peaking systolic ejection murmur at the base. RESPIRATORY: Decreased breath sounds - equal bilaterally. No accessory muscle use. No wheezes, rales or rubs. PERIPHERY: No cyanosis, or edema. Laboratory Laboratory Tests Test 11/27/17 09:30 11/27/17 17:00 11/27/17 23:05 11/28/17 05:06 White Blood Count 13.5 TH/MM3 Red Blood Count 3.12 MIL/MM3 Hemoglobin 9.3 GM/DL Hematocrit 28.7 % Mean Corpuscular Volume 92.1 FL Mean Corpuscular Hemoglobin 29.8 PG Mean Corpuscular Hemoglobin Concent 32.4 % Red Cell Distribution Width 17.5 % Platelet Count 279 TH/MM3 Mean Platelet Volume 6.1 FL Prothrombin Time 11.3 SEC Prothromb Time International Ratio 1.1 RATIO Activated Partial Thromboplast Time 28.0 SEC 39.5 SEC 38.0 SEC 47.1 SEC Imaging Last 48 hours Impressions Chest X-Ray 11/27/17 0400 Signed Impressions: Service Date/Time: Monday, November 27, 2017 05:48 - CONCLUSION: 1. Stable interstitial prominence may represent some baseline fibrosis. 2. Improving aeration in the left lung base with probable resolving atelectasis. 3. Stable masslike lesion adjacent to the aortic arch. Yash Keller MD Assessment and Plan Assessment and Plan Problems: Non-ST elevation ME. The patient has no definite history of coronary stenting. He has had peripheral vascular stenting. He has known coronary calcifications but nuclear stress test 2016 was nonischemic. Influenza pneumonia Pulmonary fibrosis-oxygen dependent. 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 Hyperlipidemia Hypertension Peripheral vascular disease Sleep apnea Anemia Recommendations: I would treat the patient conservatively at this point in time. He is certainly not a candidate for open heart surgery and has multiple medical issues. I have discussed this with Dr. Alvarez. While he probably has significant coronary artery disease, his non-ST elevation ME may well have been related to demand. I am not convinced he has true congestive heart failure as he has normal LV function and no edema. His elevated BNP could be on the basis of his severe lung disease. Continue aspirin and Plavix although his anemia certainly needs to be followed by the primary service. I would recommend to critical care switching him from intravenous heparin to DVT prophylaxis. Continue statin and beta-susan. Overall his prognosis is poor given his multiple medical issues. I will leave further management to critical care and other services. We will be available if needed. He will need to follow-up with Dr. Amy Infante, his primary patient companion. All questions were answered. Hermilo Erazo MD November 28, 2017 06:28
[2017-11-28] MEDS: RESP: ALBUTEROL 2.5 MG/IPRATROPIUM 0.5 MG NEB (PRN) INH (07:13)
[2017-11-28] MEDS: INSULIN ASPART SUPPLEMENTAL SCALE SQ SCH ×4 (08:00→20:27)
[2017-11-28] MEDS: UMECLIDINIUM 62.5 MCG/VILANTEROL 25 MCG INHALER INH SCH (08:34)
[2017-11-28] MEDS: PANTOPRAZOLE SODIUM 40 MG VIAL IV PUSH SCH (08:34)
[2017-11-28] MEDS: FENOFIBRATE 48 MG TAB PO SCH (08:35)
[2017-11-28] MEDS: FUROSEMIDE 20 MG TAB PO SCH (08:35)
[2017-11-28] MEDS: CHOLECALCIFEROL (VIT D3) 1000 UNIT TAB PO SCH (08:35)
[2017-11-28] MEDS: DOCUSATE SODIUM 50 MG/SENNA 8.6 MG TAB PO SCH ×2 (08:35→20:18)
[2017-11-28] MEDS: OSELTAMIVIR PHOSPHATE 75 MG CAP PO SCH ×2 (08:35→20:19)
[2017-11-28] MEDS: MULTIVITAMIN TAB PO SCH (08:35)
[2017-11-28] MEDS: FERROUS SULFATE 325 MG (65 MG ELEMENTAL IRON) TAB PO SCH (08:35)
[2017-11-28] MEDS: CLOPIDOGREL 75 MG TAB PO SCH ×2 (08:36→08:43)
[2017-11-28] MEDS: CARVEDILOL 12.5 MG TAB PO SCH ×2 (08:40→20:19)
[2017-11-28] MEDS: AZITHROMYCIN INJ 500 MG in SODIUM CHLOR 0.9% 250 ML INJ 250 ML IV SCH (08:42)
[2017-11-28] MEDS: SODIUM CHLORIDE 0.9% FLUSH 10 ML FLUSH IV FLUSH SCH ×2 (08:43→20:18)
[2017-11-28] MEDS: CEFEPIME INJ 2,000 MG in SODIUM CHLORIDE 0.9% INJ 100 ML IV SCH (08:43)
[2017-11-28] MEDS: methylPREDNISolone SOD SUCC 40 MG/1 ML VIAL IV PUSH SCH ×2 (08:43→20:18)
--- NOTE | 2017-11-28 09:13 | HHI.CCPN ---
Subjective Remarks/Hospital Course Hospital Course: This is a 77-year-old male that presented to [place] emergency department with increasing respiratory distress beginning at 4 AM. 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 The patient continues on chemotherapy and his oncologist is Dr. Josesito Fisher. He completed rounds of carboplatin and Taxol in 09/2017. He also received previous radiation therapy in 2017. He last received immunotherapy on 11/24/17 and stated that he had previously had symptoms very similar 48 hours post treatment. In review of the medical records the patient has been having worsening dyspnea and having increasing oxygen requirements. He was last seen in Dr. Fisher's office with dyspnea with O2 saturation in the 70s on 11/24/2017 and received oxygen and O2 saturation increased to 93%, and was started on prednisone 20 mg twice daily with plans for subsequent taper. His respiratory distress was thought to be secondary to an inflammatory response. the patient at that time was instructed to continue to utilize oxygen supplementation. The patient normally utilizes CPAP at night secondary to obstructive sleep apnea. The patient also has a history of smoking, COPD and pulmonary fibrosis. His police liaison officer is Dr. Ghanshyam Gaines. In the ED imaging and laboratory studies were obtained the patient was noted to have a WBC count of 17, and chest x-ray revealed increasing patchy interstitial infiltrates in the mid and lower lungs without consolidation. The patient was noted to have an elevated BNP. Lasix 80 mg IV was given. Patient was placed on BiPAP on 100%, with resultant PaO2 of 87. The patient's medical history is also significant for the fact the patient has coronary artery disease critical care medicine was consulted. Subjective: 11/27: trop increased significantly to 20 overnight. patient remains chest pain free. still desat quickly off bipap. flu+ and started on tamiflu. patient has very poor insight into chronic medical problems and asks when he will be ready to go home. we had long discussion about his acute life-threatening illnesses on top of end-stage chronic medical conditions. discussed at length with Dr. Wright and Dr. Fisher today plan of care from an oncologic and cardiac standpoint. will certainly need ischemic work-up this hospital admission, but influenza pneumonia and acute hypoxic respiratory failure are far more life- threatening currently. 11/28: breathing slightly improved. discussed with Dr. Erazo, and plan for medical management of coronary disease. He recommended discontinuation of heparin infusion and transitioning to ASA/Plavix therapy. Objective Vital Signs Date Time Temp Pulse Resp B/P (MAP) Pulse Ox O2 Delivery O2 Flow Rate FiO2 11/28/17 09:01 88 27 150/77 (101) 90 11/28/17 08:01 97.2 11/28/17 07:00 Nasal Cannula 5.00 35 Intake and Output 11/28/17 11/28/17 11/29/17 08:00 16:00 00:00 Intake Total 630 ml Output Total 1200 ml Balance -570 ml Result Diagram: 11/27/17 0930 11/27/17 0303 Other Results Microbiology Date/Time Source Procedure Growth Status 11/26/17 09:18 Nasal Washing Influenza Types A,B Antigen (DIXIE) - Final Positive For Flu A Antigen Complete 11/26/17 10:55 Urine Clean Catch Legionella Antigen - Final PRESUMPTIVE NEGATIVE FOR LEGIONELLA P... Complete 11/26/17 10:55 Urine Clean Catch Streptococcus pneumoniae Antigen (M - Final PRESUMPTIVE NEGATIVE FOR STREPTOCOCCU... Complete Imaging Last Impressions Chest X-Ray 11/26/17 0000 Signed Impressions: Service Date/Time: Sunday, November 26, 2017 05:18 - CONCLUSION: Interval development of patchy diffuse bilateral interstitial infiltrates. Gus Carmona MD Objective Remarks GENERAL: This is a elderly male, lying in bed, on BiPAP. SKIN: Warm and dry. HEAD: Atraumatic. Normocephalic. EYES: Pupils equal and round. 3 mm and brisk. no scleral icterus. No injection or drainage. Extraocular movement intact ENT: No nasal bleeding or discharge. Mucous membranes pink and moist. NECK: Trachea midline. No JVD. CARDIOVASCULAR: Normal rate, regular rhythm. sinus. RESPIRATORY: No accessory muscle use. On BiPAP. not tachypneic. GASTROINTESTINAL: Abdomen soft, non-tender, obese nondistended. No guarding. MUSCULOSKELETAL: Extremities without clubbing, cyanosis, or edema. No obvious deformities. NEUROLOGICAL: GCS 15 .awake and alert. RASS 0. No gross focal/sensory deficits. Follows commands in all 4 extremities. A/P Problem List: (1) Coronary artery disease ICD Code: I25.10 - Atherosclerotic heart disease of [place] coronary artery without angina pectoris Status: Chronic (2) Benign hypertension ICD Code: I10 - Essential (primary) hypertension Status: Chronic (3) COPD with exacerbation ICD Code: J44.1 - Chronic obstructive pulmonary disease with (acute) exacerbation Status: Acute (4) Squamous cell carcinoma of left lung ICD Code: C34.92 - Malignant neoplasm of unspecified part of left bronchus or lung (5) Interstitial edema ICD Code: R60.9 - Edema, unspecified Status: Acute (6) Pulmonary fibrosis ICD Code: J84.10 - Pulmonary fibrosis, unspecified Status: Chronic (7) Lung cancer ICD Code: C34.90 - Malignant neoplasm of unspecified part of unspecified bronchus or lung (8) Respiratory failure with hypoxia ICD Code: J96.91 - Respiratory failure, unspecified with hypoxia Status: Acute (9) Chronic kidney disease, stage 3 ICD Code: N18.3 - Chronic kidney disease, stage 3 (moderate) (10) GERD (gastroesophageal reflux disease) ICD Code: K21.9 - Gastro-esophageal reflux disease without esophagitis (11) Obstructive sleep apnea ICD Code: G47.33 - Obstructive sleep apnea (adult) (pediatric) (12) Hyperlipidemia ICD Code: E78.5 - Hyperlipidemia, unspecified Assessment and Plan Assessment This is a 77-year-old male with severe end-stage COPD and pulmonary fibrosis, 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 appreciate cardiology, pulmonary, and oncology input. Remain in ICU. will do everything we can to avoid intubation and mechanical ventilation, as a course of mechanical ventilation certainly may be terminal or permanent for him. Remains critically ill and high risk. Plan by systems: Neurologic: Glaucoma Insomnia Neuro checks per ICU protocol Patient normally takes Zoldipiem at night have restarted at patient's insistence. Obtain information regarding medication for glaucoma from family Respiratory: Acute hypoxemic respiratory failure Acute COPD exacerbation Obstructive sleep apnea Poorly differentiated squamous cell carcinoma of the lung Severe end-stage Pulmonary fibrosis Influenza pneumonia Maintain O2 sat greater than 92% Maintain patient on CPAP at night normally uses CPAP at home at night Patient previously on prednisone 20 mg twice daily with a tentative plan for taper. We will continue methylprednisolone 40 mg twice daily Duo nebs every 6 hours scheduled and every 2 hours as needed Continue Anoro Ellipta inhaler 62.5- 25 mcgs/day Consult patient's personal police liaison officer- Dr. Ghanshyam Gaines 11/26ches [id number] patchy interstitial infiltrates mid and lower lungs without consolidation continue tamiflu. Cardiovascular: Coronary artery disease Acute systolic heart failure Hypertension Acute NSTEMI BNP elevated troponins now downtrending. heparin drip cardiology consult Continue carvedilol 12.5 mg twice daily, aspirin 81/day, atorvastatin 80 mg at at bedtime d/c heparin drip at cardiology recommendation start plavix 75mg po daily continue ASA Renal: Chronic kidney disease stage III BPH continue forced diuresis. -- Strict I/Os FEN/GI: GERD Hyperlipidemia Electrolytes per ICU protocol Monitor BMP slowly advance diet. Bowel regimen Patient normally takes Protonix at home will continue Continue fenofibrate 54 mg/day, multivitamin/day Heme/ID: Status post chemo/RT 09/17 Immunotherapy Leukocytosis Anemia Influenza pneumonia Heme Onc--Dr. Fisher, patient received immunotherapy Durvalumab on 11/24/17 Obtain blood, sputum culture WBC count 17 may be secondary to prednisone, but cannot rule out possible immunosuppression empiric antibiotics cefepime and azithromycin will de-escalate at 48h if negative. influenza A + 10 units ferrous sulfate 325/day Obtain / trend lactate levels Tamiflu. Endocrine: Glucose monitoring per ICU protocol. Low-dose regimen -- SSI Prophylaxis: GI Prophylaxis Protonix DVT Prophylaxis -- SCDs Heparin drip: d/c today. start SQH. Lines: Right chest [id number] in situ, peripheral IVs 2 Dispo: remain in ICU. high risk. complex. Problem Qualifiers (1) Lung cancer: Abel Alvarez MD November 28, 2017 09:13
--- NOTE | 2017-11-28 11:57 | HHI.HCPN ---
Reason for visit a. To assist with evaluation and management of symptoms including: dyspnea, anxiety b. To assist medical decision maker(s) with: better understanding of current medical conditions; weighing benefits/burdens of medical treatment options; making medical treatment decisions. . 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 Cardiology, pulmonology and oncology are following. Patient remains critically ill in the intensive care. Follow-up visit for symptom management of anxiety and dyspnea. Patient seen and assessed at [facility] in room 8400. Patient continues to have intermittent dyspnea on 4-5 L of oxygen via nasal cannula. Oxygen saturations in the high 80s or low 90s. Patient denies anxiety ; he states his breathing has improved and as long as he rests he does not feel short of breath. Dr. Erazo, cardiology, has recommended medical management of coronary disease. He has made recommendations to discontinue heparin infusion and transition to ASA/Plavix therapy. Lab work reviewed: = WBC: 12.7, hemoglobin 8.6, hematocrit 26.3, platelets 253 = Sodium: 138, potassium 3.8, chloride 105, carbon dioxide 27.7, glucose 155, calcium 8.2 = BUN: 38, creatinine 1.20, GFR 59 = APTT: 47.1 Follow-up chest x-ray on 11/27/2017 showing stable interstitial prominence which may represent some baseline fibrosis; improving aeration in the lung base with probable resolving atelectasis; stable masslike lesion adjacent to the aortic arch. . Family/friend interactions See interval history. . Advance Directives Advance Directive Specifics Documented care wishes: No known documented care wishes have been completed . Objective Vital Signs Date Time Temp Pulse Resp B/P (MAP) Pulse Ox O2 Delivery O2 Flow Rate FiO2 11/28/17 11:01 86 21 134/65 (88) 89 11/28/17 10:01 100 35 135/66 (89) 86 11/28/17 10:00 86 11/28/17 09:01 88 27 150/77 (101) 90 11/28/17 08:01 97.2 94 47 135/75 (95) 83 11/28/17 08:00 88 11/28/17 07:00 Nasal Cannula 5.00 35 11/28/17 07:00 76 20 147/78 (101) 91 11/28/17 06:00 84 11/28/17 06:00 84 27 147/75 (99) 92 11/28/17 05:00 68 21 120/58 (78) 94 11/28/17 04:00 66 11/28/17 04:00 66 20 134/68 (90) 91 11/28/17 04:00 94 4.00 11/28/17 03:00 97.8 76 24 127/72 (90) 92 11/28/17 02:00 70 21 131/62 (85) 94 11/28/17 02:00 80 11/28/17 01:00 76 22 148/82 (104) 94 11/28/17 00:00 96 11/28/17 00:00 98.0 96 26 128/71 (90) 90 11/28/17 00:00 90 4.00 11/27/17 23:00 90 18 146/78 (100) 90 11/27/17 22:00 108 11/27/17 22:00 108 30 168/81 (110) 88 11/27/17 21:30 91 4.00 11/27/17 21:20 93 Nasal Cannula 4.00 11/27/17 21:00 92 23 147/76 (99) 88 11/27/17 20:00 92 16 133/71 (91) 89 11/27/17 20:00 95 11/27/17 19:00 90 Nasal Cannula 4.00 11/27/17 19:00 97.6 102 26 153/71 (98) 88 11/27/17 18:00 96 26 139/73 (95) 87 11/27/17 18:00 96 11/27/17 17:00 102 27 147/69 (95) 86 11/27/17 16:00 86 11/27/17 16:00 98.6 86 17 149/76 (100) 98 11/27/17 15:00 88 28 131/65 (87) 91 11/27/17 14:00 86 11/27/17 14:00 86 24 124/63 (83) 89 11/27/17 13:00 98.7 96 34 135/72 (93) 92 11/27/17 12:00 90 11/27/17 12:00 90 31 127/65 (85) 91 Intake & Output 11/28/17 11/28/17 06:59 18:59 Intake Total 730 ml Output Total 1200 ml Balance -470 ml Intake Oral 420 ml IV Total 310 ml Output Urine Total 1200 ml .. Physical Exam CONSTITUTIONAL/GENERAL: This is an elderly, male patient on nasal cannula in no acute distress TUBES/LINES/DRAINS: Implanted VAD, PIV, nasal cannula SKIN: No jaundice, rashes, or lesions. Ecchymoses on upper extremities. No wounds seen anteriorly. Skin temperature appropriate. Not diaphoretic. HEAD: Atraumatic. Normocephalic. EYES: Pupils equal and round and reactive. Extraocular motions intact. No scleral icterus. No injection or drainage. Fundi not examined. ENT: Hearing grossly normal. Nose without bleeding or purulent drainage. Oral mucosa moist and pink NECK: Trachea midline. Supple, nontender. No palpable thyroid enlargement or nodularity. CARDIOVASCULAR: Regular rate and rhythm without murmurs, gallops, or rubs. No JVD. Peripheral pulses symmetric. RESPIRATORY/CHEST: Oxygen saturation in the high 80s - low 90s on supplemental oxygen via 5Lnasal cannula; patient desaturates with minimal activity. Breath sounds diminished bilaterally. No wheezes, rales, or rhonchi. + Hemoptysis GASTROINTESTINAL: Abdomen soft, non-tender, nondistended. No hepato-splenomegaly , or palpable masses. No guarding. Bowel sounds present. GENITOURINARY: Without palpable bladder distension. MUSCULOSKELETAL: Extremities without clubbing, cyanosis, or edema. No mottling or clubbing. LYMPHATICS: No palpable cervical or supraclavicular adenopathy. NEUROLOGICAL: Awake and alert. Follows commands. Cognitively sharp. Moves all extremities. PSYCHIATRIC: No obvious anxiety/depression on exam. No apparent hallucinations or other psychotic thought process. ,. Diagnostic Tests Laboratory Laboratory Tests Test 11/26/17 05:20 11/26/17 05:35 11/26/17 06:20 11/26/17 08:25 White Blood Count 17.5 TH/MM3 (4.0-11.0) Red Blood Count 3.53 MIL/MM3 (4.50-5.90) Hemoglobin 11.1 GM/DL (13.0-17.0) Hematocrit 33.0 % (39.0-51.0) Mean Corpuscular Volume 93.5 FL (80.0-100.0) Mean Corpuscular Hemoglobin 31.4 PG (27.0-34.0) Mean Corpuscular Hemoglobin Concent 33.5 % (32.0-36.0) Red Cell Distribution Width 17.5 % (11.6-17.2) Platelet Count 349 TH/MM3 (150-450) Mean Platelet Volume 6.6 FL (7.0-11.0) Neutrophils (%) (Auto) 86.3 % (16.0-70.0) Lymphocytes (%) (Auto) 5.7 % (9.0-44.0) Monocytes (%) (Auto) 2.1 % (0.0-8.0) Eosinophils (%) (Auto) 5.8 % (0.0-4.0) Basophils (%) (Auto) 0.1 % (0.0-2.0) Neutrophils # (Auto) 15.1 TH/MM3 (1.8-7.7) Lymphocytes # (Auto) 1.0 TH/MM3 (1.0-4.8) Monocytes # (Auto) 0.4 TH/MM3 (0-0.9) Eosinophils # (Auto) 1.0 TH/MM3 (0-0.4) Basophils # (Auto) 0.0 TH/MM3 (0-0.2) CBC Comment DIFF FINAL Differential Comment D-Dimer Quantitative (PE/DVT) 12.18 MG/L FEU (0.00-0.50) Blood Urea Nitrogen 30 MG/DL (7-18) Creatinine 1.60 MG/DL (0.60-1.30) Random Glucose 293 MG/DL (74-106) Total Protein 7.5 GM/DL (6.4-8.2) Albumin 2.8 GM/DL (3.4-5.0) Calcium Level 8.8 MG/DL (8.5-10.1) Magnesium Level 2.0 MG/DL (1.5-2.5) Alkaline Phosphatase 65 U/L (45-117) Aspartate Amino Transf (AST/SGOT) 23 U/L (15-37) Alanine Aminotransferase (ALT/SGPT) 24 U/L (12-78) Total Bilirubin 0.8 MG/DL (0.2-1.0) Sodium Level 140 MEQ/L (136-145) Potassium Level 4.4 MEQ/L (3.5-5.1) Chloride Level 104 MEQ/L (98-107) Carbon Dioxide Level 19.5 MEQ/L (21.0-32.0) Anion Gap 17 MEQ/L (5-15) Estimat Glomerular Filtration Rate 42 ML/MIN (>89) Lactic Acid Level 8.5 mmol/L (0.4-2.0) 1.2 mmol/L (0.4-2.0) Troponin I 0.11 NG/ML (0.02-0.05) B-Type Natriuretic Peptide 826 PG/ML (0-100) Blood Gas Puncture Site LT RADIAL Blood Gas Patient Temperature 98.6 Blood Gas HCO3 20 mmol/L (22-26) Blood Gas Base Excess -4.8 mmol/L (-2-2) Blood Gas Oxygen Saturation 92 % (90-100) Arterial Blood pH 7.33 (7.380-7.420) Arterial Blood Partial Pressure CO2 40 mmHG (38-42) Arterial Blood Partial Pressure O2 87 mmHG (61-120) Arterial Blood Oxygen Content 14.4 Vol % (12.0-20.0) Arterial Blood Carboxyhemoglobin 2.5 % (0-4) Arterial Blood Methemoglobin 1.0 % (0-2) Blood Gas Hemoglobin 11.1 G/DL (12.0-16.0) Oxygen Delivery Device BIPAP Blood Gas Ventilator Setting IPAP15/PEEP5 Blood Gas Inspired Oxygen 100 % Urine Color YELLOW (YELLW/STRAW) Urine Turbidity CLEAR (CLEAR) Urine pH 5.5 (5.0-8.5) Urine Specific Mel[place] 1.020 (1.002-1.035) Urine Protein TRACE mg/dL (NEG-TRACE) Urine Glucose (UA) NEG mg/dL (NEG) Urine Ketones NEG mg/dL (NEG) Urine Occult Blood SMALL (NEG) Urine Nitrite NEG (NEG) Urine Bilirubin NEG (NEG) Urine Urobilinogen 0.2 MG/DL (LESS THAN Urine Leukocyte Esterase NEG (NEG) Urine RBC 0-3 /hpf (0-3) Urine WBC 0-2 /hpf (0-5) Urine Squamous Epithelial Cells 0-5 /hpf (0-5) Microscopic Urinalysis Comment CULT NOT INDICATED Test 11/26/17 11:00 11/26/17 12:05 11/26/17 17:28 11/27/17 03:03 Nasal Screen MRSA (PCR) MRSA NOT DETECTED (NOT Troponin I 23.10 NG/ML (0.02-0.05) 18.50 NG/ML (0.02-0.05) Blood Gas Puncture Site RT RADIAL Blood Gas Patient Temperature 37.0 Blood Gas HCO3 24 mmol/L (22-26) Blood Gas Base Excess 0.7 mmol/L (-2-2) Blood Gas Oxygen Saturation 92 % (90-100) Arterial Blood pH 7.50 (7.380-7.420) Arterial Blood Partial Pressure CO2 30 mmHg (38-42) Arterial Blood Partial Pressure O2 73 mmHg (61-120) Arterial Blood Oxygen Content 12.9 Vol % (12.0-20.0) Arterial Blood Carboxyhemoglobin 2.6 % (0-4) Arterial Blood Methemoglobin 1.1 % (0-2) Blood Gas Hemoglobin 9.9 G/DL (12.0-16.0) Oxygen Delivery Device BIPAP Blood Gas Ventilator Setting IPAP 18/EPAP 5 Blood Gas Inspired Oxygen 40 % White Blood Count 10.0 TH/MM3 (4.0-11.0) Red Blood Count 2.99 MIL/MM3 (4.50-5.90) Hemoglobin 8.9 GM/DL (13.0-17.0) Hematocrit 27.5 % (39.0-51.0) Mean Corpuscular Volume 92.1 FL (80.0-100.0) Mean Corpuscular Hemoglobin 29.8 PG (27.0-34.0) Mean Corpuscular Hemoglobin Concent 32.4 % (32.0-36.0) Red Cell Distribution Width 17.5 % (11.6-17.2) Platelet Count 254 TH/MM3 (150-450) Mean Platelet Volume 5.9 FL (7.0-11.0) Neutrophils (%) (Auto) 96.3 % (16.0-70.0) Lymphocytes (%) (Auto) 1.8 % (9.0-44.0) Monocytes (%) (Auto) 1.8 % (0.0-8.0) Eosinophils (%) (Auto) 0.0 % (0.0-4.0) Basophils (%) (Auto) 0.1 % (0.0-2.0) Neutrophils # (Auto) 9.6 TH/MM3 (1.8-7.7) Lymphocytes # (Auto) 0.2 TH/MM3 (1.0-4.8) Monocytes # (Auto) 0.2 TH/MM3 (0-0.9) Eosinophils # (Auto) 0.0 TH/MM3 (0-0.4) Basophils # (Auto) 0.0 TH/MM3 (0-0.2) CBC Comment DIFF FINAL Differential Comment Blood Urea Nitrogen 39 MG/DL (7-18) Creatinine 1.40 MG/DL (0.60-1.30) Random Glucose 131 MG/DL (74-106) Calcium Level 8.6 MG/DL (8.5-10.1) Phosphorus Level 3.7 MG/DL (2.5-4.9) Magnesium Level 2.1 MG/DL (1.5-2.5) Sodium Level 138 MEQ/L (136-145) Potassium Level 3.7 MEQ/L (3.5-5.1) Chloride Level 104 MEQ/L (98-107) Carbon Dioxide Level 25.9 MEQ/L (21.0-32.0) Anion Gap 8 MEQ/L (5-15) Estimat Glomerular Filtration Rate 49 ML/MIN (>89) Lactic Acid Level 1.8 mmol/L (0.4-2.0) B-Type Natriuretic Peptide 1540 PG/ML (0-100) Test 11/27/17 09:30 11/27/17 17:00 11/27/17 23:05 11/28/17 05:06 White Blood Count 13.5 TH/MM3 (4.0-11.0) Red Blood Count 3.12 MIL/MM3 (4.50-5.90) Hemoglobin 9.3 GM/DL (13.0-17.0) Hematocrit 28.7 % (39.0-51.0) Mean Corpuscular Volume 92.1 FL (80.0-100.0) Mean Corpuscular Hemoglobin 29.8 PG (27.0-34.0) Mean Corpuscular Hemoglobin Concent 32.4 % (32.0-36.0) Red Cell Distribution Width 17.5 % (11.6-17.2) Platelet Count 279 TH/MM3 (150-450) Mean Platelet Volume 6.1 FL (7.0-11.0) Prothrombin Time 11.3 SEC (9.8-11.6) Prothromb Time International Ratio 1.1 RATIO Activated Partial Thromboplast Time 28.0 SEC (24.3-30.1) 39.5 SEC (24.3-30.1) 38.0 SEC (24.3-30.1) 47.1 SEC (24.3-30.1) . Result Diagram: 11/27/17 0930 11/27/17 0303 Microbiology Microbiology Date/Time Source Procedure Growth Status 11/26/17 05:30 Blood Peripheral Aerobic Blood Culture - Preliminary NO GROWTH IN 2 DAYS Resulted 11/26/17 05:30 Blood Peripheral Anaerobic Blood Culture - Preliminary NO GROWTH IN 2 DAYS Resulted 11/26/17 05:25 Blood Peripheral Aerobic Blood Culture - Preliminary NO GROWTH IN 2 DAYS Resulted 11/26/17 05:25 Blood Peripheral Anaerobic Blood Culture - Preliminary NO GROWTH IN 2 DAYS Resulted 11/27/17 18:07 Sputum Expectorated Sputum Gram Stain - Final Resulted 11/27/17 18:07 Sputum Expectorated Sputum Sputum Culture Pending Resulted 11/26/17 09:18 Nasal Washing Influenza Types A,B Antigen (DIXIE) - Final Positive For Flu A Antigen Complete 11/26/17 10:55 Urine Clean Catch Legionella Antigen - Final PRESUMPTIVE NEGATIVE FOR LEGIONELLA P... Complete 11/26/17 10:55 Urine Clean Catch Streptococcus pneumoniae Antigen (M - Final PRESUMPTIVE NEGATIVE FOR STREPTOCOCCU... Complete . Imaging Last 72 hours Impressions Chest X-Ray 11/27/17 0400 Signed Impressions: Service Date/Time: Monday, November 27, 2017 05:48 - CONCLUSION: 1. Stable interstitial prominence may represent some baseline fibrosis. 2. Improving aeration in the left lung base with probable resolving atelectasis. 3. Stable masslike lesion adjacent to the aortic arch. Yash Keller MD Lower Extremity Ultrasound 11/26/17 0000 Signed Impressions: Service Date/Time: Sunday, November 26, 2017 07:46 - CONCLUSION: Normal examination. Adrian Farris MD Chest X-Ray 11/26/17 0000 Signed Impressions: Service Date/Time: Sunday, November 26, 2017 05:18 - CONCLUSION: Interval development of patchy diffuse bilateral interstitial infiltrates. Gus Carmona MD . Assessment and Plan Disease Oriented Problem List: (1) Lung mass (2) Interstitial edema (3) Pulmonary fibrosis (4) Lung cancer (5) Benign hypertension (6) Coronary artery disease (7) Hyperlipidemia (8) GERD (gastroesophageal reflux disease) (9) Obstructive sleep apnea (10) COPD with exacerbation (11) Squamous cell carcinoma of left lung (12) Respiratory failure with hypoxia (13) Chronic kidney disease, stage 3 Symptom Scale: (1) Dyspnea 0-10 Scale: Unable to quantify (2) Anxiety 0-10 Scale: Unable to quantify Pertinent Non-Medical Issues Psychosocial: Patient is originally from the [place], [place] area. 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 He and his have been for >54 years. They have 2 2 daughters who still live in [place]. The patient is now retired and lives in [place] with his . Spiritual: Holiness Legal: Per [place] statutes, in the absence of written advanced directives healthcare proxy decision making falls to the patient's of 54+ years- Olga. Ethical issues impacting care: No known ethical issues impacting care at this time. Important Contacts Olga Mayorga, : [phone] . Prognosis Mr. Mayorga is a 77-year-old with a known history of COPD, pulmonary fibrosis and non-small cell lung cancer status post resection, chemo/radiation and immunotherapy. Currently admitted with influenza and acute hypoxic respiratory failure status post myocardial infarction. He is critically ill with acute life -threatening illnesses in addition to known end-stage chronic medical conditions. Patient is high risk for ongoing decline and complications. Should the patient's goals become comfort oriented, he would likely be hospice appropriate with a life expectancy <6 months. . Code Status: Full Code Plan * FULL CODE * Decision-making: Patient currently showing good insight and judgment related to his medical conditions. He understands that if he were to lose capacity for medical decision-making, [place] statutes state and the absence of written advanced directives healthcare proxy decision making falls to patient's . * AGGRESSIVE GOALS: Patient has asked, "When will I be outta here." He verbalizes understanding that he is critically ill but states he intends to survive this hospitalization stating he has things he needs to take care of before he goes anywhere.Patient's verbalizes support of patient's medical treatment goals; she to expresses aggressive goals. * * Symptom management: == Dyspnea: Patient has a known history of COPD, pulmonary fibrosis and non- small cell lung cancer. Patient presented to the ED with complaints of sudden, acute shortness of breath. Chest x-ray showed interval development of patchy diffuse bilateral interstitial infiltrate. Influenza A positive; BNP was also elevated. Patient was started on Tamiflu, broad-spectrum antibiotics, diuretic, Solu-Medrol and DuoNeb 's. Pulmonology following. == Anxiety: Multifactoral. Patient endorses anxiety secondary to his shortness of breath, concerns related to his medical well-being and feeling a loss of control. Medications may be a contributing factor. We discussed pharmacological as well as nonpharmacological management strategies. Patient would like to attempt to manage his feelings of anxiety without medications at this time * Palliative care will continue to follow this patient throughout his/her hospitalization to build rapport, assist with symptom management and goal clarification. . Attestation To help prompt me to consider important information that might be impacting today's encounter and assessment, information from prior notes written by myself or my colleagues may have been "brought forward" into today's note. My signature on this note, however, is an attestation that I personally performed the exam, history, and/or decision-making noted today, and, unless otherwise indicated, the interactions with patient, family, and staff as well as the review of records all occurred today. I also attest that the listed assessment and stated plan reflect my best clinical judgment today based on the combination of historical information, prior notes, and today's exam/ interactions. When time spent is documented, it refers only to time spent today by the signer, or if indicated, combined time spent today by collaborating physician/nurse practitioner. . Maria R Conley November 28, 2017 11:57
[2017-11-28 12:03] LABS: HEMATOCRIT 26.3 % (39.0-51.0); HEMOGLOBIN 8.6 GM/DL (13.0-17.0); MEAN CORPUSCULAR HEMOGLOBIN 30.1 PG (27.0-34.0); MEAN CORPUSCULAR HGB CONC 32.7 % (32.0-36.0); MEAN PLATELET VOLUME 6.2 FL (7.0-11.0); PLATELET COUNT 253 TH/MM3 (150-450); RED BLOOD COUNT 2.86 MIL/MM3 (4.50-5.90); RED CELL DISTRIBUTION WIDTH 17.3 % (11.6-17.2); WHITE BLOOD COUNT 12.7 TH/MM3 (4.0-11.0)
[2017-11-28 12:11] LABS: CALCIUM 8.2 MG/DL (8.5-10.1)
[2017-11-28 12:12] LABS: BICARBONATE 27.7 MEQ/L (21.0-32.0)
[2017-11-28 12:15] LABS: CREATININE 1.2 MG/DL (0.60-1.30)
[2017-11-28] MEDS: HEPARIN SODIUM - SQ 10,000 UNITS/ML VIAL SQ SCH ×2 (14:20→22:04)
[2017-11-28] MEDS: ATORVASTATIN 40 MG TAB PO SCH (20:18)
[2017-11-28] MEDS: ASPIRIN 81 MG CHEW TAB PO SCH (20:19)
[2017-11-28] MEDS: ZOLPIDEM TARTRATE 10 MG TAB PO PRN (20:44)
[2017-11-29] VITALS (20 sets, daily range): BP systolic 118–188; BP diastolic 64–90; PULSE 66–100; RESP 17–31; TEMP 96.9–98.8; O2SAT 82–97
[2017-11-29] MEDS: RESP: ALBUTEROL 2.5 MG/IPRATROPIUM 0.5 MG NEB (SCH) INH (03:45)
[2017-11-29] MEDS: CHLORHEXIDINE GLUCONATE 2 % 1 PACK (2 CLOTHS)(taper/protocol) TOPICAL SCH (04:00)
[2017-11-29] MEDS: HEPARIN SODIUM - SQ 10,000 UNITS/ML VIAL SQ SCH ×3 (05:52→22:28)
[2017-11-29 07:53] LABS: HEMATOCRIT 25.5 % (39.0-51.0); HEMOGLOBIN 8.6 GM/DL (13.0-17.0); MEAN CELL VOLUME 91.6 FL (80.0-100.0); MEAN CORPUSCULAR HEMOGLOBIN 30.8 PG (27.0-34.0); MEAN CORPUSCULAR HGB CONC 33.6 % (32.0-36.0); MEAN PLATELET VOLUME 6.7 FL (7.0-11.0); PLATELET COUNT 257 TH/MM3 (150-450); RED BLOOD COUNT 2.79 MIL/MM3 (4.50-5.90); RED CELL DISTRIBUTION WIDTH 17.6 % (11.6-17.2); WHITE BLOOD COUNT 11.6 TH/MM3 (4.0-11.0)
[2017-11-29] MEDS: INSULIN ASPART SUPPLEMENTAL SCALE SQ SCH ×4 (08:00→20:44)
[2017-11-29 08:07] LABS: CALCIUM 8.5 MG/DL (8.5-10.1)
[2017-11-29 08:11] LABS: CREATININE 1.1 MG/DL (0.60-1.30)
[2017-11-29] MEDS: CLOPIDOGREL 75 MG TAB PO SCH ×2 (09:00→09:18)
[2017-11-29] MEDS: CHOLECALCIFEROL (VIT D3) 1000 UNIT TAB PO SCH (09:00)
[2017-11-29] MEDS: AZITHROMYCIN INJ 500 MG in SODIUM CHLOR 0.9% 250 ML INJ 250 ML IV SCH (09:16)
[2017-11-29] MEDS: CARVEDILOL 12.5 MG TAB PO SCH ×2 (09:17→20:40)
[2017-11-29] MEDS: OSELTAMIVIR PHOSPHATE 75 MG CAP PO SCH ×2 (09:17→20:39)
[2017-11-29] MEDS: PANTOPRAZOLE SODIUM 40 MG VIAL IV PUSH SCH (09:17)
[2017-11-29] MEDS: UMECLIDINIUM 62.5 MCG/VILANTEROL 25 MCG INHALER INH SCH (09:17)
[2017-11-29] MEDS: DOCUSATE SODIUM 50 MG/SENNA 8.6 MG TAB PO SCH ×2 (09:17→20:40)
[2017-11-29] MEDS: FUROSEMIDE 20 MG TAB PO SCH (09:17)
[2017-11-29] MEDS: FERROUS SULFATE 325 MG (65 MG ELEMENTAL IRON) TAB PO SCH (09:17)
[2017-11-29] MEDS: MULTIVITAMIN TAB PO SCH (09:17)
[2017-11-29] MEDS: FENOFIBRATE 48 MG TAB PO SCH (09:18)
[2017-11-29] MEDS: SODIUM CHLORIDE 0.9% FLUSH 10 ML FLUSH IV FLUSH SCH ×2 (09:18→20:45)
[2017-11-29] MEDS: predniSONE 10 MG TAB PO SCH ×2 (09:30→20:39)
[2017-11-29] MEDS: RESP: IPRATROPIUM 0.5 MG/2.5 ML NEB NEB SCH ×3 (10:00→21:16)
[2017-11-29] MEDS: RESP: ALBUTEROL 2.5 MG/IPRATROPIUM 0.5 MG NEB (PRN) INH (10:24)
--- NOTE | 2017-11-29 13:32 | HHI.PR ---
Subjective Remarks Patient seen and evaluated today in follow-up for respiratory failure and non- ST elevation AL. Overall greatly improved. Recovering from influenza A, pneumonia. Still a bit dyspneic. Care plan discussed with patient and [employer]ER Objective Vitals Vital Signs Date Time Temp Pulse Resp B/P (MAP) Pulse Ox O2 Delivery O2 Flow Rate FiO2 11/29/17 11:00 84 29 118/65 (82) 86 11/29/17 10:26 90 Nasal Cannula 4.00 11/29/17 10:00 100 31 137/64 (88) 82 11/29/17 10:00 92 11/29/17 09:00 97.6 88 27 150/74 (99) 90 11/29/17 08:00 84 23 150/78 (102) 89 11/29/17 08:00 82 11/29/17 07:00 Nasal Cannula 4.00 11/29/17 07:00 72 17 158/70 (99) 97 11/29/17 06:00 72 11/29/17 05:55 79 20 160/83 (108) 92 11/29/17 04:03 68 11/29/17 04:00 94 26 92 11/29/17 03:42 97.4 94 24 156/72 (100) 95 11/29/17 03:00 78 19 97 11/29/17 02:13 78 11/29/17 02:11 66 18 137/75 (95) 95 11/29/17 00:01 97.9 78 22 146/70 (95) 94 11/29/17 00:00 78 11/28/17 23:00 80 22 95 11/28/17 22:01 98 29 149/82 (104) 93 11/28/17 22:00 95 11/28/17 21:30 95 4.00 11/28/17 21:01 90 26 165/82 (109) 93 11/28/17 21:00 93 5.00 11/28/17 21:00 95 4.00 11/28/17 20:01 98.0 86 26 151/74 (99) 93 11/28/17 20:00 93 Nasal Cannula 5.00 11/28/17 20:00 94 11/28/17 19:01 100 32 149/75 (99) 88 11/28/17 18:01 88 25 164/81 (108) 92 11/28/17 18:00 86 11/28/17 17:01 86 26 148/73 (98) 93 11/28/17 16:01 90 25 142/71 (94) 91 11/28/17 16:00 72 11/28/17 15:11 90 25 145/71 (95) 88 11/28/17 14:06 92 Nasal Cannula 5.00 11/28/17 14:01 97.9 84 25 145/73 (97) 90 11/28/17 14:00 72 I/O 11/28/17 11/28/17 11/28/17 11/29/17 11/29/17 11/29/17 07:00 15:00 23:00 07:00 15:00 23:00 Intake Total 730 ml 600 ml 400 ml Output Total 1200 ml 1201 ml 650 ml Balance -470 ml -601 ml -250 ml Intake Oral 420 ml 600 ml 400 ml IV Total 310 ml Output Urine Total 1200 ml 1200 ml 650 ml Stool Total 1 ml # Bowel Movements 1 Result Diagram: 11/29/17 0735 11/29/17 0735 Imaging Last Impressions Chest X-Ray 11/27/17 0400 Signed Impressions: Service Date/Time: Monday, November 27, 2017 05:48 - CONCLUSION: 1. Stable interstitial prominence may represent some baseline fibrosis. 2. Improving aeration in the left lung base with probable resolving atelectasis. 3. Stable masslike lesion adjacent to the aortic arch. Yash Keller MD Lower Extremity Ultrasound 11/26/17 0000 Signed Impressions: Service Date/Time: Sunday, November 26, 2017 07:46 - CONCLUSION: Normal examination. Adrian Farris MD Objective Remarks GENERAL: This is a well-nourished, well-developed patient, pursed lip breathing CARDIOVASCULAR: Regular rate and rhythm without murmurs, gallops, or rubs. RESPIRATORY: Decreased breath sounds bilaterally with scattered wheezes GASTROINTESTINAL: Abdomen soft, non-tender, nondistended. Normal active bowel sounds MUSCULOSKELETAL: Extremities without clubbing, cyanosis, or edema. NEURO: Alert & Oriented x4 to person, place, time, situation. Moves all ext x4 A/P Problem List: (1) NSTEMI (non-ST elevation myocardial infarction) ICD Code: I21.4 - Non-ST elevation (NSTEMI) myocardial infarction Plan: We will continue with medical management for now Cardiology consult appreciated. Poor candidate for cardiac bypass or angiography at this time. 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 Still quite dyspneic on 4 L, he uses 3 L at baseline Continue pulmonary toilet and follow clinically (3) COPD with exacerbation ICD Code: J44.1 - Chronic obstructive pulmonary disease with (acute) exacerbation Status: Acute Plan: Continue with nebulized bronchodilators, steroids oral taper Continue Tamiflu, azithromycin (4) Chronic kidney disease, stage 3 ICD Code: N18.3 - Chronic kidney disease, stage 3 (moderate) Plan: Stable, avoid nephrotoxic injury (5) Influenza A ICD Code: J10.1 - Influenza due to other identified influenza virus with other respiratory manifestations Plan: Continue Tamiflu Assessment and Plan Transfer to [facility] unit Izabella Mims MD November 29, 2017 13:32
--- NOTE | 2017-11-29 18:41 | HHI.HCPN ---
Reason for visit a. To assist with evaluation and management of symptoms including: dyspnea, anxiety b. To assist medical decision maker(s) with: better understanding of current medical conditions; weighing benefits/burdens of medical treatment options; making medical treatment decisions. . 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 Cardiology, pulmonology and oncology are following. Patient remains critically ill in the intensive care. Follow-up visit for symptom management of anxiety and dyspnea. Patient seen and assessed at [facility] in room 8400. Patient presents sitting up on the side of the bed eating dinner. He reports his dyspnea has improved and he is able to do more. However, he continues to appear intermittently dyspneic. Oxygen saturations remain in the 80s to low 90s on 4L of oxygen via nasal cannula. Patient denies anxiety or any other complaints. Cardiology following. Patient is a poor candidate for bypass or angiography at this time. 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 On Plavix, Coreg, Lipitor and ASA. Lab work reviewed: = WBC: 11.6, hemoglobin 8.6, hematocrit 25.5, platelets 257 = Sodium: 141, potassium 3.9, chloride 105, carbon dioxide 28.0, glucose 109, calcium 8.5 = BUN: 34, creatinine 1.10, GFR 65 Follow-up chest x-ray on 11/27/2017 showing stable interstitial prominence which may represent some baseline fibrosis; improving aeration in the lung base with probable resolving atelectasis; stable masslike lesion adjacent to the aortic arch. Patient being transferred to O med/surg floor. Patient is in good spirits as his 2 daughters and granddaughter arrived from [place] today. He is optimistic that he will become stronger in the upcoming days to weeks, expressing ongoing aggressive goals. Palliative care will continue to follow this patient throughout his hospitalization to establish trust, assist with symptom management and ongoing clarification of medical treatment goals. . Advance Directives Advance Directive Specifics Documented care wishes: No known documented care wishes have been completed . Objective Vital Signs Date Time Temp Pulse Resp B/P (MAP) Pulse Ox O2 Delivery O2 Flow Rate FiO2 11/29/17 11:00 84 29 118/65 (82) 86 11/29/17 10:26 90 Nasal Cannula 4.00 11/29/17 10:00 100 31 137/64 (88) 82 11/29/17 10:00 92 11/29/17 09:00 97.6 88 27 150/74 (99) 90 11/29/17 08:00 84 23 150/78 (102) 89 11/29/17 08:00 82 11/29/17 07:00 Nasal Cannula 4.00 11/29/17 07:00 72 17 158/70 (99) 97 11/29/17 06:00 72 11/29/17 05:55 79 20 160/83 (108) 92 11/29/17 04:03 68 11/29/17 04:00 94 26 92 11/29/17 03:42 97.4 94 24 156/72 (100) 95 11/29/17 03:00 78 19 97 11/29/17 02:13 78 11/29/17 02:11 66 18 137/75 (95) 95 11/29/17 00:01 97.9 78 22 146/70 (95) 94 11/29/17 00:00 78 11/28/17 23:00 80 22 95 11/28/17 22:01 98 29 149/82 (104) 93 11/28/17 22:00 95 11/28/17 21:30 95 4.00 11/28/17 21:01 90 26 165/82 (109) 93 11/28/17 21:00 93 5.00 11/28/17 21:00 95 4.00 11/28/17 20:01 98.0 86 26 151/74 (99) 93 11/28/17 20:00 93 Nasal Cannula 5.00 11/28/17 20:00 94 11/28/17 19:01 100 32 149/75 (99) 88 Intake & Output 11/29/17 11/29/17 07:00 19:00 Intake Total 400 ml Output Total 650 ml Balance -250 ml Intake Oral 400 ml Output Urine Total 650 ml . Physical Exam CONSTITUTIONAL/GENERAL: This is an elderly, male patient on nasal cannula in no acute distress TUBES/LINES/DRAINS: Implanted VAD, PIV, nasal cannula SKIN: No jaundice, rashes, or lesions. Ecchymoses on upper extremities. No wounds seen anteriorly. Skin temperature appropriate. Not diaphoretic. HEAD: Atraumatic. Normocephalic. EYES: Pupils equal and round and reactive. Extraocular motions intact. No scleral icterus. No injection or drainage. Fundi not examined. ENT: Hearing grossly normal. Nose without bleeding or purulent drainage. Oral mucosa moist and pink NECK: Trachea midline. Supple, nontender. No palpable thyroid enlargement or nodularity. CARDIOVASCULAR: Regular rate and rhythm without murmurs, gallops, or rubs. No JVD. Peripheral pulses symmetric. RESPIRATORY/CHEST: Oxygen saturation in the high 80s - low 90s on supplemental oxygen via 4Lnasal cannula. Breath sounds diminished bilaterally. No wheezes, rales, or rhonchi. GASTROINTESTINAL: Abdomen soft, non-tender, nondistended. No hepato-splenomegaly , or palpable masses. No guarding. Bowel sounds present. GENITOURINARY: Without palpable bladder distension. MUSCULOSKELETAL: Extremities without clubbing, cyanosis, or edema. No mottling or clubbing. LYMPHATICS: No palpable cervical or supraclavicular adenopathy. NEUROLOGICAL: Awake and alert. Follows commands. Cognitively sharp. Moves all extremities. PSYCHIATRIC: No obvious anxiety/depression on exam. No apparent hallucinations or other psychotic thought process. ,. Diagnostic Tests Laboratory Laboratory Tests Test 11/27/17 03:03 11/27/17 09:30 11/27/17 17:00 11/27/17 23:05 White Blood Count 10.0 TH/MM3 (4.0-11.0) 13.5 TH/MM3 (4.0-11.0) Red Blood Count 2.99 MIL/MM3 (4.50-5.90) 3.12 MIL/MM3 (4.50-5.90) Hemoglobin 8.9 GM/DL (13.0-17.0) 9.3 GM/DL (13.0-17.0) Hematocrit 27.5 % (39.0-51.0) 28.7 % (39.0-51.0) Mean Corpuscular Volume 92.1 FL (80.0-100.0) 92.1 FL (80.0-100.0) Mean Corpuscular Hemoglobin 29.8 PG (27.0-34.0) 29.8 PG (27.0-34.0) Mean Corpuscular Hemoglobin Concent 32.4 % (32.0-36.0) 32.4 % (32.0-36.0) Red Cell Distribution Width 17.5 % (11.6-17.2) 17.5 % (11.6-17.2) Platelet Count 254 TH/MM3 (150-450) 279 TH/MM3 (150-450) Mean Platelet Volume 5.9 FL (7.0-11.0) 6.1 FL (7.0-11.0) Neutrophils (%) (Auto) 96.3 % (16.0-70.0) Lymphocytes (%) (Auto) 1.8 % (9.0-44.0) Monocytes (%) (Auto) 1.8 % (0.0-8.0) Eosinophils (%) (Auto) 0.0 % (0.0-4.0) Basophils (%) (Auto) 0.1 % (0.0-2.0) Neutrophils # (Auto) 9.6 TH/MM3 (1.8-7.7) Lymphocytes # (Auto) 0.2 TH/MM3 (1.0-4.8) Monocytes # (Auto) 0.2 TH/MM3 (0-0.9) Eosinophils # (Auto) 0.0 TH/MM3 (0-0.4) Basophils # (Auto) 0.0 TH/MM3 (0-0.2) CBC Comment DIFF FINAL Differential Comment Blood Urea Nitrogen 39 MG/DL (7-18) Creatinine 1.40 MG/DL (0.60-1.30) Random Glucose 131 MG/DL (74-106) Calcium Level 8.6 MG/DL (8.5-10.1) Phosphorus Level 3.7 MG/DL (2.5-4.9) Magnesium Level 2.1 MG/DL (1.5-2.5) Sodium Level 138 MEQ/L (136-145) Potassium Level 3.7 MEQ/L (3.5-5.1) Chloride Level 104 MEQ/L (98-107) Carbon Dioxide Level 25.9 MEQ/L (21.0-32.0) Anion Gap 8 MEQ/L (5-15) Estimat Glomerular Filtration Rate 49 ML/MIN (>89) Lactic Acid Level 1.8 mmol/L (0.4-2.0) B-Type Natriuretic Peptide 1540 PG/ML (0-100) Prothrombin Time 11.3 SEC (9.8-11.6) Prothromb Time International Ratio 1.1 RATIO Activated Partial Thromboplast Time 28.0 SEC (24.3-30.1) 39.5 SEC (24.3-30.1) 38.0 SEC (24.3-30.1) Test 11/28/17 05:06 11/28/17 11:45 11/29/17 07:35 Activated Partial Thromboplast Time 47.1 SEC (24.3-30.1) White Blood Count 12.7 TH/MM3 (4.0-11.0) 11.6 TH/MM3 (4.0-11.0) Red Blood Count 2.86 MIL/MM3 (4.50-5.90) 2.79 MIL/MM3 (4.50-5.90) Hemoglobin 8.6 GM/DL (13.0-17.0) 8.6 GM/DL (13.0-17.0) Hematocrit 26.3 % (39.0-51.0) 25.5 % (39.0-51.0) Mean Corpuscular Volume 92.0 FL (80.0-100.0) 91.6 FL (80.0-100.0) Mean Corpuscular Hemoglobin 30.1 PG (27.0-34.0) 30.8 PG (27.0-34.0) Mean Corpuscular Hemoglobin Concent 32.7 % (32.0-36.0) 33.6 % (32.0-36.0) Red Cell Distribution Width 17.3 % (11.6-17.2) 17.6 % (11.6-17.2) Platelet Count 253 TH/MM3 (150-450) 257 TH/MM3 (150-450) Mean Platelet Volume 6.2 FL (7.0-11.0) 6.7 FL (7.0-11.0) Blood Urea Nitrogen 38 MG/DL (7-18) 34 MG/DL (7-18) Creatinine 1.20 MG/DL (0.60-1.30) 1.10 MG/DL (0.60-1.30) Random Glucose 155 MG/DL (74-106) 109 MG/DL (74-106) Calcium Level 8.2 MG/DL (8.5-10.1) 8.5 MG/DL (8.5-10.1) Sodium Level 138 MEQ/L (136-145) 141 MEQ/L (136-145) Potassium Level 3.8 MEQ/L (3.5-5.1) 3.9 MEQ/L (3.5-5.1) Chloride Level 105 MEQ/L (98-107) 105 MEQ/L (98-107) Carbon Dioxide Level 27.7 MEQ/L (21.0-32.0) 28.0 MEQ/L (21.0-32.0) Anion Gap 5 MEQ/L (5-15) 8 MEQ/L (5-15) Estimat Glomerular Filtration Rate 59 ML/MIN (>89) 65 ML/MIN (>89) . Result Diagram: 11/29/17 0735 11/29/17 0735 Microbiology Microbiology Date/Time Source Procedure Growth Status 11/27/17 18:07 Sputum Expectorated Sputum Gram Stain - Final Complete 11/27/17 18:07 Sputum Expectorated Sputum Sputum Culture - Final HEAVY GROWTH NORMAL RESPIRATORY ANTONINA Complete Imaging Last 72 hours Impressions Chest X-Ray 11/27/17 0400 Signed Impressions: Service Date/Time: Monday, November 27, 2017 05:48 - CONCLUSION: 1. Stable interstitial prominence may represent some baseline fibrosis. 2. Improving aeration in the left lung base with probable resolving atelectasis. 3. Stable masslike lesion adjacent to the aortic arch. Yash Keller MD . Assessment and Plan Disease Oriented Problem List: (1) Lung mass (2) Interstitial edema (3) Pulmonary fibrosis (4) Lung cancer (5) Benign hypertension (6) Coronary artery disease (7) Hyperlipidemia (8) GERD (gastroesophageal reflux disease) (9) Obstructive sleep apnea (10) COPD with exacerbation (11) Squamous cell carcinoma of left lung (12) Respiratory failure with hypoxia (13) Chronic kidney disease, stage 3 Symptom Scale: (1) Dyspnea 0-10 Scale: Unable to quantify (2) Anxiety 0-10 Scale: Unable to quantify Pertinent Non-Medical Issues Psychosocial: Patient is originally from the [place], [place] area. 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 He and his have been for >54 years. They have 2 2 daughters who still live in [place]. The patient is now retired and lives in [place] with his . Spiritual: [employer] Legal: Per [place] statutes, in the absence of written advanced directives healthcare proxy decision making falls to the patient's of 54+ years- Olga. Ethical issues impacting care: No known ethical issues impacting care at this time. Important Contacts Olga Mayorga, : [phone] . Prognosis Mr. Mayorga is a 77-year-old with a known history of COPD, pulmonary fibrosis and non-small cell lung cancer status post resection, chemo/radiation and immunotherapy. Currently admitted with influenza and acute hypoxic respiratory failure status post myocardial infarction. He is critically ill with acute life -threatening illnesses in addition to known end-stage chronic medical conditions. Patient is high risk for ongoing decline and complications. Should the patient's goals become comfort oriented, he would likely be hospice appropriate with a life expectancy <6 months. . Code Status: Full Code Plan * FULL CODE * Decision-making: Patient currently showing good insight and judgment related to his medical conditions. He understands that if he were to lose capacity for medical decision-making, [place] statutes state and the absence of written advanced directives healthcare proxy decision making falls to patient's . * AGGRESSIVE GOALS: Patient has asked, "When will I be outta here." He verbalizes understanding that he is critically ill but states he intends to survive this hospitalization stating he has things he needs to take care of before he goes anywhere.Patient's verbalizes support of patient's medical treatment goals; she to expresses aggressive goals. * * Symptom management: == Dyspnea: Patient has a known history of COPD, pulmonary fibrosis and non- small cell lung cancer. Patient presented to the ED with complaints of sudden, acute shortness of breath. Chest x-ray showed interval development of patchy diffuse bilateral interstitial infiltrate. Influenza A positive; BNP was also elevated. Denies shortness of breath on exam 11/29/2017 however, he continues to appear intermittently dyspneic. Oxygen saturations remain in the 80s to low 90s on 4L of oxygen via nasal cannula. == Anxiety: Symptoms resolved. Previously discussed pharmacological as well as nonpharmacological management strategies of anxiety. * Palliative care will continue to follow this patient throughout his/her hospitalization to build rapport, assist with symptom management and goal clarification. . Attestation To help prompt me to consider important information that might be impacting today's encounter and assessment, information from prior notes written by myself or my colleagues may have been "brought forward" into today's note. My signature on this note, however, is an attestation that I personally performed the exam, history, and/or decision-making noted today, and, unless otherwise indicated, the interactions with patient, family, and staff as well as the review of records all occurred today. I also attest that the listed assessment and stated plan reflect my best clinical judgment today based on the combination of historical information, prior notes, and today's exam/ interactions. When time spent is documented, it refers only to time spent today by the signer, or if indicated, combined time spent today by collaborating physician/nurse practitioner. . Maria R Conley November 29, 2017 18:41
[2017-11-29] MEDS: ASPIRIN 81 MG CHEW TAB PO SCH (20:40)
[2017-11-29] MEDS: ATORVASTATIN 40 MG TAB PO SCH (20:40)
[2017-11-29] MEDS: ZOLPIDEM TARTRATE 10 MG TAB PO PRN (22:26)
[2017-11-30] VITALS (8 sets, daily range): BP systolic 128–163; BP diastolic 67–79; PULSE 80–94; RESP 20–22; TEMP 96.7–98.3; O2SAT 84–96
[2017-11-30] MEDS: RESP: IPRATROPIUM 0.5 MG/2.5 ML NEB NEB SCH ×4 (03:34→20:06)
[2017-11-30] MEDS: CHLORHEXIDINE GLUCONATE 2 % 1 PACK (2 CLOTHS)(taper/protocol) TOPICAL SCH (04:00)
[2017-11-30 06:49] LABS: HEMATOCRIT 25.2 % (39.0-51.0); HEMOGLOBIN 8.6 GM/DL (13.0-17.0); MEAN CELL VOLUME 93.5 FL (80.0-100.0); MEAN CORPUSCULAR HEMOGLOBIN 31.9 PG (27.0-34.0); MEAN CORPUSCULAR HGB CONC 34.1 % (32.0-36.0); PLATELET COUNT 263 TH/MM3 (150-450); RED CELL DISTRIBUTION WIDTH 17.8 % (11.6-17.2); WHITE BLOOD COUNT 10.8 TH/MM3 (4.0-11.0)
[2017-11-30] MEDS: HEPARIN SODIUM - SQ 10,000 UNITS/ML VIAL SQ SCH ×3 (06:49→21:19)
[2017-11-30 06:59] LABS: CALCIUM 8.5 MG/DL (8.5-10.1)
[2017-11-30 07:00] LABS: BICARBONATE 29.2 MEQ/L (21.0-32.0)
[2017-11-30 07:03] LABS: CREATININE 1.2 MG/DL (0.60-1.30)
[2017-11-30] MEDS: INSULIN ASPART SUPPLEMENTAL SCALE SQ SCH ×4 (08:00→21:00)
[2017-11-30] MEDS: UMECLIDINIUM 62.5 MCG/VILANTEROL 25 MCG INHALER INH SCH (09:00)
[2017-11-30] MEDS: CLOPIDOGREL 75 MG TAB PO SCH ×2 (09:00→09:28)
[2017-11-30] MEDS: FENOFIBRATE 48 MG TAB PO SCH (09:00)
[2017-11-30] MEDS: AZITHROMYCIN INJ 500 MG in SODIUM CHLOR 0.9% 250 ML INJ 250 ML IV SCH (09:26)
[2017-11-30] MEDS: PANTOPRAZOLE SODIUM 40 MG VIAL IV PUSH SCH (09:27)
[2017-11-30] MEDS: predniSONE 10 MG TAB PO SCH ×2 (09:27→21:18)
[2017-11-30] MEDS: FERROUS SULFATE 325 MG (65 MG ELEMENTAL IRON) TAB PO SCH (09:28)
[2017-11-30] MEDS: DOCUSATE SODIUM 50 MG/SENNA 8.6 MG TAB PO SCH ×2 (09:28→21:00)
[2017-11-30] MEDS: MULTIVITAMIN TAB PO SCH (09:28)
[2017-11-30] MEDS: CARVEDILOL 12.5 MG TAB PO SCH ×2 (09:28→21:18)
[2017-11-30] MEDS: FUROSEMIDE 20 MG TAB PO SCH (09:28)
[2017-11-30] MEDS: OSELTAMIVIR PHOSPHATE 75 MG CAP PO SCH ×2 (09:28→21:17)
[2017-11-30] MEDS: CHOLECALCIFEROL (VIT D3) 1000 UNIT TAB PO SCH (09:28)
[2017-11-30] MEDS: SODIUM CHLORIDE 0.9% FLUSH 10 ML FLUSH IV FLUSH SCH ×2 (09:29→21:24)
--- NOTE | 2017-11-30 11:33 | HHI.PR ---
Subjective Remarks Patient seen in follow for for acute hypoxemic respiratory failure better now with oxygenation, treatment of acute problems Objective Vitals Vital Signs Date Time Temp Pulse Resp B/P (MAP) Pulse Ox O2 Delivery O2 Flow Rate FiO2 11/30/17 08:26 91 Nasal Cannula 4.80 11/30/17 08:00 98.3 94 22 163/79 (107) 92 11/30/17 04:00 96.8 80 20 152/70 (97) 84 11/29/17 21:16 92 Nasal Cannula 4.00 11/29/17 21:00 96.9 97 20 188/88 (121) 88 11/29/17 21:00 92 Nasal Cannula 4.00 11/29/17 20:00 98.8 98 20 162/90 (114) 96 11/29/17 19:00 96 Nasal Cannula 4.00 11/29/17 15:00 82 I/O 11/29/17 11/29/17 11/29/17 11/30/17 11/30/17 11/30/17 07:00 15:00 23:00 07:00 15:00 23:00 Intake Total 400 ml 560 ml 480 ml Output Total 650 ml 112 ml 600 ml Balance -250 ml 448 ml -120 ml Intake Oral 400 ml 560 ml 480 ml Output Urine Total 650 ml 110 ml 600 ml Stool Total 2 ml # Voids 4 # Bowel Movements 0 Result Diagram: 11/30/17 0600 11/30/17 0600 Objective Remarks GENERAL: This is a well-nourished, well-developed patient, less short of breath and more active CARDIOVASCULAR: Regular rate and rhythm without murmurs, gallops, or rubs. RESPIRATORY: Improved airflow GASTROINTESTINAL: Abdomen soft, non-tender, nondistended. Normal active bowel sounds MUSCULOSKELETAL: Extremities without clubbing, cyanosis, or edema. NEURO: Alert & Oriented x4 to person, place, time, situation. Moves all ext x4 A/P Problem List: (1) NSTEMI (non-ST elevation myocardial infarction) ICD Code: I21.4 - Non-ST elevation (NSTEMI) myocardial infarction Plan: We will continue with medical management for now Cardiology consult appreciated. Poor candidate for cardiac bypass or angiography at this time. Patient agreeable to conservative care we will follow -up with his unclaimed property manager as an outpatient Plavix, Coreg, Lipitor, aspirin (2) Dyspnea ICD Code: R06.00 - Dyspnea, unspecified Plan: Multifactorial due to influenza, COPD exacerbation and pulmonary fibrosis recent lobectomy for lung mass Patient feels much better. Improved dyspnea 3-4 L (2 L at baseline) Continue pulmonary toilet and follow clinically (3) COPD with exacerbation ICD Code: J44.1 - Chronic obstructive pulmonary disease with (acute) exacerbation Status: Acute Plan: Continue with nebulized bronchodilators, steroids oral taper Continue Tamiflu, azithromycin (4) Chronic kidney disease, stage 3 ICD Code: N18.3 - Chronic kidney disease, stage 3 (moderate) Plan: Stable, avoid nephrotoxic injury (5) Influenza A ICD Code: J10.1 - Influenza due to other identified influenza virus with other respiratory manifestations Plan: Continue Tamiflu Assessment and Plan Pending progress likely discharge home in Izabella Dickson MD November 30, 2017 11:33
[2017-11-30] MEDS ORDERED: WALKER WHEELS/F1 MIS (15:29)
--- NOTE | 2017-11-30 16:08 | HHI.HCPN ---
Reason for visit a. To assist with evaluation and management of symptoms including: dyspnea, anxiety b. To assist medical decision maker(s) with: better understanding of current medical conditions; weighing benefits/burdens of medical treatment options; making medical treatment decisions. . 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 Cardiology, pulmonology and oncology are following. Patient remains critically ill in the intensive care. Follow-up visit for symptom management of anxiety and dyspnea. Patient seen and assessed at [facility] in room 8400. Patient presents sitting up in recliner. He is alert and oriented to person, place and situation. Patient reporting symptoms of dyspnea drastically improved. He states was able to walk to the door and back with PT assistance and the walked to the bathroom to have a BM. Oxygen saturation drops to the low 80s with minimal exertion but returned to baseline quickly with rest. Anxiety has also improved mow that the patient is breathing better Cardiology following. Patient is a poor candidate for bypass or angiography at this time. 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 On Plavix, Coreg, Lipitor and ASA. Follow-up chest x-ray on 11/27/2017 showing stable interstitial prominence which may represent some baseline fibrosis; improving aeration in the lung base with probable resolving atelectasis; stable masslike lesion adjacent to the aortic arch. Pending progress, possible discharge in the am. . Family/friend interactions See interval history . Advance Directives Advance Directive Specifics Documented care wishes: No known documented care wishes have been completed . Objective Vital Signs Date Time Temp Pulse Resp B/P (MAP) Pulse Ox O2 Delivery O2 Flow Rate FiO2 11/30/17 12:00 96.7 90 22 128/78 (95) 94 11/30/17 09:20 Nasal Cannula 4.50 11/30/17 08:26 91 Nasal Cannula 4.80 11/30/17 08:00 98.3 94 22 163/79 (107) 92 11/30/17 08:00 88 11/30/17 04:00 96.8 80 20 152/70 (97) 84 11/29/17 21:16 92 Nasal Cannula 4.00 11/29/17 21:00 96.9 97 20 188/88 (121) 88 11/29/17 21:00 92 Nasal Cannula 4.00 11/29/17 20:00 98.8 98 20 162/90 (114) 96 11/29/17 19:00 96 Nasal Cannula 4.00 Intake & Output 11/30/17 11/30/17 07:00 19:00 Intake Total 480 ml 250 ml Output Total 600 ml 500 ml Balance -120 ml -250 ml Intake Oral 480 ml IV Total 250 ml Output Urine Total 600 ml 500 ml # Voids 4 2 # Bowel Movements 0 . Physical Exam CONSTITUTIONAL/GENERAL: This is an elderly, male patient on nasal cannula in no acute distress TUBES/LINES/DRAINS: Implanted VAD, PIV, nasal cannula SKIN: No jaundice, rashes, or lesions. Ecchymoses on upper extremities. Skin temperature appropriate. Not diaphoretic. HEAD: Atraumatic. Normocephalic. EYES: Pupils equal and round and reactive. Extraocular motions intact. No scleral icterus. No injection or drainage. Fundi not examined. ENT: Hearing grossly normal. Nose without bleeding or purulent drainage. Oral mucosa moist and pink NECK: Trachea midline. Supple, nontender. No palpable thyroid enlargement or nodularity. CARDIOVASCULAR: Regular rate and rhythm without murmurs, gallops, or rubs. No JVD. Peripheral pulses symmetric. RESPIRATORY/CHEST: Respirations unlabored supplemental oxygen via 4Lnasal cannula. Breath sounds diminished bilaterally. No wheezes, rales, or rhonchi. GASTROINTESTINAL: Abdomen soft, non-tender, nondistended. No hepato-splenomegaly , or palpable masses. No guarding. Bowel sounds present. GENITOURINARY: Without palpable bladder distension. MUSCULOSKELETAL: Extremities without clubbing, cyanosis, or edema. No mottling or clubbing. LYMPHATICS: No palpable cervical or supraclavicular adenopathy. NEUROLOGICAL: Awake and alert. Follows commands. Cognitively sharp. Moves all extremities. PSYCHIATRIC: No obvious anxiety/depression on exam. No apparent hallucinations or other psychotic thought process. ,. Diagnostic Tests Laboratory Laboratory Tests Test 11/27/17 17:00 11/27/17 23:05 11/28/17 05:06 11/28/17 11:45 Activated Partial Thromboplast Time 39.5 SEC (24.3-30.1) 38.0 SEC (24.3-30.1) 47.1 SEC (24.3-30.1) White Blood Count 12.7 TH/MM3 (4.0-11.0) Red Blood Count 2.86 MIL/MM3 (4.50-5.90) Hemoglobin 8.6 GM/DL (13.0-17.0) Hematocrit 26.3 % (39.0-51.0) Mean Corpuscular Volume 92.0 FL (80.0-100.0) Mean Corpuscular Hemoglobin 30.1 PG (27.0-34.0) Mean Corpuscular Hemoglobin Concent 32.7 % (32.0-36.0) Red Cell Distribution Width 17.3 % (11.6-17.2) Platelet Count 253 TH/MM3 (150-450) Mean Platelet Volume 6.2 FL (7.0-11.0) Blood Urea Nitrogen 38 MG/DL (7-18) Creatinine 1.20 MG/DL (0.60-1.30) Random Glucose 155 MG/DL (74-106) Calcium Level 8.2 MG/DL (8.5-10.1) Sodium Level 138 MEQ/L (136-145) Potassium Level 3.8 MEQ/L (3.5-5.1) Chloride Level 105 MEQ/L (98-107) Carbon Dioxide Level 27.7 MEQ/L (21.0-32.0) Anion Gap 5 MEQ/L (5-15) Estimat Glomerular Filtration Rate 59 ML/MIN (>89) Test 11/29/17 07:35 11/30/17 06:00 White Blood Count 11.6 TH/MM3 (4.0-11.0) 10.8 TH/MM3 (4.0-11.0) Red Blood Count 2.79 MIL/MM3 (4.50-5.90) 2.70 MIL/MM3 (4.50-5.90) Hemoglobin 8.6 GM/DL (13.0-17.0) 8.6 GM/DL (13.0-17.0) Hematocrit 25.5 % (39.0-51.0) 25.2 % (39.0-51.0) Mean Corpuscular Volume 91.6 FL (80.0-100.0) 93.5 FL (80.0-100.0) Mean Corpuscular Hemoglobin 30.8 PG (27.0-34.0) 31.9 PG (27.0-34.0) Mean Corpuscular Hemoglobin Concent 33.6 % (32.0-36.0) 34.1 % (32.0-36.0) Red Cell Distribution Width 17.6 % (11.6-17.2) 17.8 % (11.6-17.2) Platelet Count 257 TH/MM3 (150-450) 263 TH/MM3 (150-450) Mean Platelet Volume 6.7 FL (7.0-11.0) 7.0 FL (7.0-11.0) Blood Urea Nitrogen 34 MG/DL (7-18) 33 MG/DL (7-18) Creatinine 1.10 MG/DL (0.60-1.30) 1.20 MG/DL (0.60-1.30) Random Glucose 109 MG/DL (74-106) 104 MG/DL (74-106) Calcium Level 8.5 MG/DL (8.5-10.1) 8.5 MG/DL (8.5-10.1) Sodium Level 141 MEQ/L (136-145) 140 MEQ/L (136-145) Potassium Level 3.9 MEQ/L (3.5-5.1) 3.9 MEQ/L (3.5-5.1) Chloride Level 105 MEQ/L (98-107) 105 MEQ/L (98-107) Carbon Dioxide Level 28.0 MEQ/L (21.0-32.0) 29.2 MEQ/L (21.0-32.0) Anion Gap 8 MEQ/L (5-15) 6 MEQ/L (5-15) Estimat Glomerular Filtration Rate 65 ML/MIN (>89) 59 ML/MIN (>89) . Result Diagram: 11/30/17 0600 11/30/17 0600 Microbiology Microbiology Date/Time Source Procedure Growth Status 11/30/17 15:26 Stool Stool Stool Occult Blood (DIXIE) Pending Received 11/27/17 18:07 Sputum Expectorated Sputum Gram Stain - Final Complete 11/27/17 18:07 Sputum Expectorated Sputum Sputum Culture - Final HEAVY GROWTH NORMAL RESPIRATORY ANTONINA Complete Assessment and Plan Disease Oriented Problem List: (1) Lung mass (2) Interstitial edema (3) Pulmonary fibrosis (4) Lung cancer (5) Benign hypertension (6) Coronary artery disease (7) Hyperlipidemia (8) GERD (gastroesophageal reflux disease) (9) Obstructive sleep apnea (10) COPD with exacerbation (11) Squamous cell carcinoma of left lung (12) Respiratory failure with hypoxia (13) Chronic kidney disease, stage 3 Symptom Scale: (1) Dyspnea 0-10 Scale: Unable to quantify (2) Anxiety 0-10 Scale: Unable to quantify Pertinent Non-Medical Issues Psychosocial: Patient is originally from the [place], [place] area. 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 He and his have been for >54 years. They have 2 2 daughters who still live in [place]. The patient is now retired and lives in [place] with his . Spiritual: Evangelical Legal: Per [place] statutes, in the absence of written advanced directives healthcare proxy decision making falls to the patient's of 54+ years- Olga. Ethical issues impacting care: No known ethical issues impacting care at this time. Important Contacts Olga Mayorga, : [phone] . Prognosis Mr. Mayorga is a 77-year-old with a known history of COPD, pulmonary fibrosis and non-small cell lung cancer status post resection, chemo/radiation and immunotherapy. Currently admitted with influenza and acute hypoxic respiratory failure status post myocardial infarction. He is critically ill with acute life -threatening illnesses in addition to known end-stage chronic medical conditions. Patient is high risk for ongoing decline and complications. Should the patient's goals become comfort oriented, he would likely be hospice appropriate with a life expectancy <6 months. . Code Status: Full Code Plan * FULL CODE * Decision-making: Patient currently showing good insight and judgment related to his medical conditions. He understands that if he were to lose capacity for medical decision-making, [place] statutes state and the absence of written advanced directives healthcare proxy decision making falls to patient's . * AGGRESSIVE GOALS: Patient has asked, "When will I be outta here." He verbalizes understanding that he is critically ill but states he intends to survive this hospitalization stating he has things he needs to take care of before he goes anywhere.Patient's verbalizes support of patient's medical treatment goals; she to expresses aggressive goals. * * Symptom management: == Dyspnea: Patient has a known history of COPD, pulmonary fibrosis and non- small cell lung cancer. Patient presented to the ED with complaints of sudden, acute shortness of breath. Chest x-ray showed interval development of patchy diffuse bilateral interstitial infiltrate. Influenza A positive; BNP was also elevated. Patient was able to ambulate to the door and back with PT assist. Oxygen saturations dropped into the low 80s with any activity but returned to baseline quickly with rest. == Anxiety: Symptoms resolved. Previously discussed pharmacological as well as nonpharmacological management strategies of anxiety. * Palliative care will continue to follow this patient throughout his/her hospitalization to build rapport, assist with symptom management and goal clarification. . Attestation To help prompt me to consider important information that might be impacting today's encounter and assessment, information from prior notes written by myself or my colleagues may have been "brought forward" into today's note. My signature on this note, however, is an attestation that I personally performed the exam, history, and/or decision-making noted today, and, unless otherwise indicated, the interactions with patient, family, and staff as well as the review of records all occurred today. I also attest that the listed assessment and stated plan reflect my best clinical judgment today based on the combination of historical information, prior notes, and today's exam/ interactions. When time spent is documented, it refers only to time spent today by the signer, or if indicated, combined time spent today by collaborating physician/nurse practitioner. . Maria R Conley November 30, 2017 16:08
[2017-11-30] MEDS: ZOLPIDEM TARTRATE 10 MG TAB PO PRN (21:18)
[2017-11-30] MEDS: ASPIRIN 81 MG CHEW TAB PO SCH (21:18)
[2017-11-30] MEDS: ATORVASTATIN 40 MG TAB PO SCH (21:19)
[2017-12-01] VITALS: BP 145/69; PULSE 85; RESP 20; TEMP 96.2; O2SAT 97
[2017-12-01] MEDS: CHLORHEXIDINE GLUCONATE 2 % 1 PACK (2 CLOTHS)(taper/protocol) TOPICAL SCH (01:54)
[2017-12-01 04:00] VITALS: BP 163/72; PULSE 82; RESP 20; TEMP 96.7; O2SAT 95
[2017-12-01 04:57] VITALS: BP 158/65; PULSE 95; RESP 22; TEMP 97.7; O2SAT 91
[2017-12-01] MEDS: HEPARIN SODIUM - SQ 10,000 UNITS/ML VIAL SQ SCH (05:04)
[2017-12-01] MEDS ORDERED: SODIUM CHLORIDE 0.9% FLUSH 10 ML FLUSH IV FLUSH PRN (06:30)
[2017-12-01 07:35] VITALS: O2SAT 98
[2017-12-01] MEDS: RESP: IPRATROPIUM 0.5 MG/2.5 ML NEB NEB SCH (07:35)
[2017-12-01 08:00] VITALS: BP 152/67; PULSE 87; PULSE 88; RESP 20; TEMP 96.1; O2SAT 92
[2017-12-01] MEDS: INSULIN ASPART SUPPLEMENTAL SCALE SQ SCH (08:43)
[2017-12-01] MEDS: OSELTAMIVIR PHOSPHATE 75 MG CAP PO SCH (08:44)
[2017-12-01] MEDS: predniSONE 10 MG TAB PO SCH (08:44)
[2017-12-01] MEDS: CARVEDILOL 12.5 MG TAB PO SCH (08:44)
[2017-12-01] MEDS: DOCUSATE SODIUM 50 MG/SENNA 8.6 MG TAB PO SCH (08:44)
[2017-12-01] MEDS: FUROSEMIDE 20 MG TAB PO SCH (08:45)
[2017-12-01] MEDS: CLOPIDOGREL 75 MG TAB PO SCH (08:45)
[2017-12-01] MEDS: CHOLECALCIFEROL (VIT D3) 1000 UNIT TAB PO SCH (08:45)
[2017-12-01] MEDS: FERROUS SULFATE 325 MG (65 MG ELEMENTAL IRON) TAB PO SCH (08:45)
[2017-12-01] MEDS: MULTIVITAMIN TAB PO SCH (08:45)
[2017-12-01] MEDS: SODIUM CHLORIDE 0.9% FLUSH 10 ML FLUSH IV FLUSH SCH (08:50)
[2017-12-01] MEDS: UMECLIDINIUM 62.5 MCG/VILANTEROL 25 MCG INHALER INH SCH (08:50)
[2017-12-01] MEDS: FENOFIBRATE 48 MG TAB PO SCH (08:50)
[2017-12-01] MEDS ORDERED: AZITHROMYCIN 250 MG TAB PO SCH (09:00)
[2017-12-01] MEDS ORDERED: FURO20TA PO (11:23)
[2017-12-01] MEDS ORDERED: AZIT250T3 PO (11:23)
[2017-12-01] MEDS ORDERED: OSEL75 PO (11:23)
--- NOTE | 2017-12-01 11:25 | HHI.DCPOC ---
Discharge Care Plan Diagnosis: (1) Influenza A (2) Dyspnea (3) Pulmonary fibrosis Goals to Promote Your Health * To prevent worsening of your condition and complications * To maintain your health at the optimal level Directions to Meet Your Goals Take your medications as prescribed Follow your dietary instruction Follow activity as directed Keep your appointments as scheduled Take your immunizations and boosters as scheduled If your symptoms worsen call your PCP, if no PCP go to Urgent Care Center or Emergency Room Smoking is Dangerous to Your Health. Avoid second hand smoke Call the 24-hour hour crisis hotline for domestic abuse at Izabella Mims MD December 01, 2017 11:25
--- NOTE | 2017-12-01 11:29 | HHI.DS ---
Discharge Summary Admission Date Nov 26, 2017 at 06:00 Discharge Date: December 01, 2017 Admitting Diagnosis Interstitial infiltrate, hypoxemia, pulmonary fibrosis, lung cancer (1) NSTEMI (non-ST elevation myocardial infarction) ICD Code: I21.4 - Non-ST elevation (NSTEMI) myocardial infarction (2) Dyspnea ICD Code: R06.00 - Dyspnea, unspecified (3) COPD with exacerbation ICD Code: J44.1 - Chronic obstructive pulmonary disease with (acute) exacerbation Status: Acute (4) Chronic kidney disease, stage 3 ICD Code: N18.3 - Chronic kidney disease, stage 3 (moderate) (5) Influenza A ICD Code: J10.1 - Influenza due to other identified influenza virus with other respiratory manifestations Procedures none Brief History - From Admission History of Present Illness HPI This is a 77-year-old male that presented to [facility] emergency department with increasing respiratory distress beginning at 4 AM. 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 The patient continues on chemotherapy and his oncologist is Dr. Josesito Fisher. He completed rounds of carboplatin and Taxol in 09/2017. He also received previous radiation therapy in 2016. He last received immunotherapy on 11/24/17 and stated that he had previously had symptoms very similar 48 hours post treatment. In review of the medical records the patient has been having worsening dyspnea and having increasing oxygen requirements. He was last seen in Dr. Fisher's office with dyspnea with O2 saturation in the 70s on 11/24/2017 and received oxygen and O2 saturation increased to 93%, and was started on prednisone 20 mg twice daily with plans for subsequent taper. His respiratory distress was thought to be secondary to an inflammatory response. the patient at that time was instructed to continue to utilize oxygen supplementation. The patient normally utilizes CPAP at night secondary to obstructive sleep apnea. The patient also has a history of smoking, COPD and pulmonary fibrosis. 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 In the ED imaging and laboratory studies were obtained the patient was noted to have a WBC count of 17, and chest x-ray revealed increasing patchy interstitial infiltrates in the mid and lower lungs without consolidation. The patient was noted to have an elevated BNP. Lasix 80 mg IV was given. Patient was placed on BiPAP on 100%, with resultant PaO2 of 87. The patient's medical history is also significant for the fact the patient has coronary artery disease critical care medicine was consulted. History PFSH Past Medical History Hx Anticoagulant Therapy: No Cancer: Yes (lung CA) Cardiovascular Problems: No (cholesterol, CAD, stent x 2, carotid, femoral, iliac artery stenosis) High Cholesterol: Yes Chemotherapy: Yes COPD: Yes Cerebrovascular Accident: No Diabetes: No Diminished Hearing: Yes (hearing aid) Endocrine: No Gastrointestinal Disorders: Yes (GERD, polyps, gastritis) GERD: Yes Genitourinary: No Hepatitis: No Hiatal Hernia: No Hypertension: Yes Immune Disorder: No Musculoskeletal: No Neurologic: No Psychiatric: No Reproductive: No Respiratory: Yes (lung ca, pulmonary fibrosis) Radiation Therapy: Yes Sleep Apnea: Yes (CPAP at HS) Thyroid Disease: No Past Surgical History Abdominal Surgery: No AICD: No Body Medical Devices: stents to right leg and lower abdomen, RIGHT CHEST PORT Cardiac Surgery: No Ear Surgery: No Endocrine Surgery: No Eye Surgery: No Genitourinary Surgery: No Gynecologic Surgery: No Hysterectomy: No Joint Replacement: No Oral Surgery: Yes (tonsillectomy 1950) Pacemaker: No Thoracic Surgery: Yes Other Surgery: Yes (POLYPS 4 YEARS AGO) Social History Alcohol Use: Yes (2 water glasses of wine daily) Tobacco Use: No (QUIT 3 YEARS) Substance Use: No Allergies-Medications Allergies-Medications (Allergen,Severity, Reaction): Coded Allergies: No Known Allergies (Unverified Allergy, Unknown, 11/26/17) Reported Meds & Prescriptions Reported Meds & Active Scripts Active Ventolin Hfa 18 GM Inh (Albuterol Sulfate) 90 Mcg/Act Aer 2 Puff INH Q4-6H PRN Prednisone 20 Mg Tab 20 Mg PO BID Coreg (Carvedilol) 12.5 Mg Tab 12.5 Mg PO BID Reported Anoro Ellipta Inh (Umeclidinium/Vilanterol) 62.5-25 Mcg/Act Aero 1 Puff INH DAILY Zolpidem (Zolpidem Tartrate) 10 Mg Tab 10 Mg PO HS PRN Atorvastatin (Atorvastatin Calcium) 80 Mg Tab 80 Mg PO HS Co Q-10 (Coenzyme Q10 (Ubidecarenone)) 200 Mg Cap 1 Tab PO BID U-Kfyqsh-f-Cysteine (Acetylcysteine (Nutrient)) 600 Mg Cap 1 Tab PO BID D3 Super Strength (Cholecalciferol) 2,000 Unit Cap 2,000 Units PO DAILY Feosol (Ferrous Sulfate) 325 Mg (65 Mg Iron) Tab 1 Tab PO DAILY Fenofibrate 54 Mg Tab 54 Mg PO DAILY Multiple Vitamin 1 Tab 1 Tab PO DAILY Pantoprazole (Pantoprazole Sodium) 40 Mg Tab 40 Mg PO DAILY Plavix (Clopidogrel Bisulfate) 75 Mg Tab 75 Mg PO DAILY Aspirin Low Dose (Aspirin) 81 Mg Chew 81 Mg PO HS CBC/BMP: 11/30/17 0600 11/30/17 0600 Significant Findings Laboratory Tests Test 11/28/17 11:45 11/29/17 07:35 11/30/17 06:00 White Blood Count 12.7 TH/MM3 (4.0-11.0) 11.6 TH/MM3 (4.0-11.0) Red Blood Count 2.86 MIL/MM3 (4.50-5.90) 2.79 MIL/MM3 (4.50-5.90) 2.70 MIL/MM3 (4.50-5.90) Hemoglobin 8.6 GM/DL (13.0-17.0) 8.6 GM/DL (13.0-17.0) 8.6 GM/DL (13.0-17.0) Hematocrit 26.3 % (39.0-51.0) 25.5 % (39.0-51.0) 25.2 % (39.0-51.0) Red Cell Distribution Width 17.3 % (11.6-17.2) 17.6 % (11.6-17.2) 17.8 % (11.6-17.2) Mean Platelet Volume 6.2 FL (7.0-11.0) 6.7 FL (7.0-11.0) Blood Urea Nitrogen 38 MG/DL (7-18) 34 MG/DL (7-18) 33 MG/DL (7-18) Random Glucose 155 MG/DL (74-106) 109 MG/DL (74-106) Calcium Level 8.2 MG/DL (8.5-10.1) Estimat Glomerular Filtration Rate 59 ML/MIN (>89) 65 ML/MIN (>89) 59 ML/MIN (>89) Imaging Last Impressions Chest X-Ray 11/27/17 0400 Signed Impressions: Service Date/Time: Monday, November 27, 2017 05:48 - CONCLUSION: 1. Stable interstitial prominence may represent some baseline fibrosis. 2. Improving aeration in the left lung base with probable resolving atelectasis. 3. Stable masslike lesion adjacent to the aortic arch. Yash Keller MD Lower Extremity Ultrasound 11/26/17 0000 Signed Impressions: Service Date/Time: Sunday, November 26, 2017 07:46 - CONCLUSION: Normal examination. Adrian Farris MD PE at Discharge GENERAL: This is a well-nourished, well-developed patient, less short of breath and more active CARDIOVASCULAR: Regular rate and rhythm without murmurs, gallops, or rubs. RESPIRATORY: Improved airflow GASTROINTESTINAL: Abdomen soft, non-tender, nondistended. Normal active bowel sounds MUSCULOSKELETAL: Extremities without clubbing, cyanosis, or edema. NEURO: Alert & Oriented x4 to person, place, time, situation. Moves all ext x4 Pt update on day of discharge Patient seen today. No new complaints overnight. Respiratory status is stable. Discharge plan discussed with patient and family as well as Tim RN. Agreeable. Hospital Course This patient is a very pleasant 77-year-old woman with a history of interstitial pneumonia and pulmonary fibrosis. Patient was found to have influenza and had a non-ST elevation OR in the hospital. Patient was seen by cardiology and medical management was recommended. Patient also continue with antibiotics and antivirals. He was seen also by pulmonary specialty team. Pt Condition on Discharge: Good Discharge Disposition: Discharge Home Discharge Time: <= 30 minutes Discharge Instructions DIET: Follow Instructions for: As Tolerated, No Restrictions Activities you can perform: Regular-No Restrictions Follow up Referrals: Cardiology - 2 Weeks @ [facility] Pulmonology - 1 Week with Ben Gaines MD New Medications: Walker with Front Wheels (Walker with Front Wheels) 1 Mis Mis EA .XX DIRECTED, #1 0 Refills Azithromycin (Azithromycin) 250 Mg Tab 500 MG PO DAILY for Infection, #3 TAB Furosemide (Furosemide) 20 Mg Tab 20 MG PO DAILY for fluid, #31 TAB Oseltamivir (Tamiflu) 75 Mg Cap 75 MG PO BID for Infection, #3 CAP Continued Medications: Acetylcysteine (Nutrient) (O-Pgbpxt-i-Cysteine) 600 Mg Cap 1 TAB PO BID for pulmonary fibrosis Albuterol 18 GM Inh (Ventolin Hfa 18 GM Inh) 90 Mcg/Act Aer 2 PUFF INH Q4-6H PRN for SHORTNESS OF BREATH, #1 INHALER 0 Refills Aspirin (Aspirin Low Dose) 81 Mg Chew 81 MG PO HS, TAB 0 Refills Atorvastatin (Atorvastatin) 80 Mg Tab 80 MG PO HS for Cholesterol Management, #30 TAB 0 Refills Carvedilol (Coreg) 12.5 Mg Tab 12.5 MG PO BID for Blood Pressure Management, #60 TAB 2 Refills Cholecalciferol (D3 Super Strength) 2,000 Unit Cap 2000 UNITS PO DAILY for Nutritional Supplement, #30 CAP 0 Refills Clopidogrel (Plavix) 75 Mg Tab 75 MG PO DAILY for Blood Clot Prevention, #30 TAB 0 Refills Coenzyme Q10 (Ubidecarenone) (Co Q-10) 200 Mg Cap 1 TAB PO BID for Nutritional Supplement Fenofibrate (Fenofibrate) 54 Mg Tab 54 MG PO DAILY, #30 TAB 0 Refills Ferrous Sulfate (Feosol) 325 Mg (65 Mg Iron) Tab 1 TAB PO DAILY for Nutritional Supplement, #60 TAB 0 Refills Multiple Vitamin (Multiple Vitamin) 1 Tab 1 TAB PO DAILY for Nutritional Supplement, TAB 0 Refills Pantoprazole (Pantoprazole) 40 Mg Tab 40 MG PO DAILY for Reflux, #30 TAB 0 Refills Prednisone (Prednisone) 20 Mg Tab 20 MG PO BID for Inflammation, #10 TAB 0 Refills Umeclidinium-Vilanterol Inh (Anoro Ellipta Inh) 62.5-25 Mcg/Act Aero 1 PUFF INH DAILY for COPD, #1 INHALER 0 Refills Zolpidem (Zolpidem) 10 Mg Tab 10 MG PO HS PRN for INSOMNIA, TAB 0 Refills Izabella Mims MD December 01, 2017 11:29
[2017-12-01 12:00] VITALS: BP 143/68; PULSE 84; RESP 20; TEMP 96.2; O2SAT 92
--- NOTE | 2017-12-01 12:39 | PD.ONC.PN ---
Subjective Subjective Remarks Patient seen and examined, vital signs, labs, medications and events of the past 2 days reviewed. Overall patient reports feeling improved, he tells me his breathing is better and is back to Breathing comfortably on nasal cannula. He is preparing to be go home. Patient denies fevers, chills, chest pain or overt bleeding. He is on dual antiplatelet therapy with aspirin and Plavix for management of his non-STEMI. He is also on oral prednisone for management of possible COPD exacerbation/ pulmonary fibrosis. Objective Data Date Time Temp Pulse Resp B/P (MAP) Pulse Ox O2 Delivery O2 Flow Rate FiO2 12/01/17 12:00 96.2 84 20 143/68 (93) 92 12/01/17 08:45 Nasal Cannula 4.00 12/01/17 08:00 96.1 88 20 152/67 (95) 92 12/01/17 08:00 87 12/01/17 07:35 98 Nasal Cannula 6.00 12/01/17 04:57 97.7 95 22 158/65 (96) 91 12/01/17 04:00 96.7 82 20 163/72 (102) 95 12/01/17 00:00 96.2 85 20 145/69 (94) 97 11/30/17 23:00 3.00 11/30/17 22:00 Nasal Cannula 4.50 11/30/17 20:15 90 11/30/17 20:06 91 Nasal Cannula 6.00 11/30/17 20:00 96.9 83 20 147/67 (93) 95 11/30/17 16:00 96.9 80 20 137/67 (90) 96 12/01/17 12/01/17 12/01/17 07:00 15:00 23:00 Intake Total 240 ml Output Total 800 ml Balance -560 ml Result Diagram: 11/30/17 0600 11/30/17 0600 Culture Results Microbiology Date/Time Source Procedure Growth Status 11/30/17 15:26 Stool Stool Stool Occult Blood (DIXIE) - Final HEMOCCULT POSITIVE Complete Administered Medications Medications (Trade) Dose Ordered Sig/Sandy Route PRN Reason Start Time Stop Time Status Last Admin Dose Admin Sodium Chloride (NS Flush) 2 ml BID IV FLUSH 11/26/17 09:00 12/01/17 08:50 Albuterol/ Ipratropium (Duoneb Neb) 1 ampule Q2HR NEB PRN INH WHEEZING 11/26/17 07:00 11/29/17 10:24 Senna/Docusate Sodium (Yu-Colace) 1 tab BID PO 11/26/17 09:00 12/01/17 08:44 Insulin Aspart (NovoLOG SUPPLEMENTAL SCALE) 1 ACHS SLIDING SCALE SQ 11/26/17 08:00 12/01/17 08:43 Aspirin (Aspirin Chew) 81 mg HS PO 11/26/17 21:00 11/30/17 21:18 Atorvastatin Calcium (Lipitor) 80 mg HS PO 11/26/17 21:00 11/30/17 21:19 Carvedilol (Coreg) 12.5 mg BID PO 11/26/17 09:00 12/01/17 08:44 Cholecalciferol (Vitamin D3) 2,000 units DAILY PO 11/26/17 09:00 12/01/17 08:45 Clopidogrel Bisulfate (Plavix) 75 mg DAILY PO 11/26/17 09:00 12/01/17 08:45 Ferrous Sulfate (Ferrous Sulfate) 325 mg DAILY PO 11/26/17 09:00 12/01/17 08:45 Fenofibrate (Tricor) 48 mg DAILY PO 11/26/17 09:00 12/01/17 08:50 Multivitamins (Theragran) 1 tab DAILY PO 11/26/17 09:00 12/01/17 08:45 Miscellaneous Information ([facility]) Patient in critical care unit? Ass... [id number] .XX 11/26/17 10:45 11/26/17 10:45 Oseltamivir Phosphate (Tamiflu) 75 mg BID PO 11/27/17 09:00 12/01/17 08:44 Zolpidem Tartrate (Ambien) 10 mg HS PRN PO insomnia 11/27/17 22:45 11/30/17 21:18 Furosemide (Lasix) 20 mg DAILY PO 11/28/17 09:00 12/01/17 08:45 Heparin Sodium (Porcine) (Heparin Inj) 5,000 units Q8HR SQ 11/28/17 14:00 12/01/17 05:04 Prednisone (Deltasone) 30 mg BID PO 11/29/17 09:00 12/01/17 08:44 Ipratropium [place] (Atrovent Neb) 0.5 mg Q6HR WHILE AWAKE NEB NEB 11/30/17 08:00 12/01/17 07:35 Azithromycin (Zithromax) 500 mg DAILY PO 12/01/17 09:00 12/01/17 08:44 Objective Remarks GENERAL: Elderly male, sitting up in and up in chair, he is on nasal cannula, he is speaking and breathing very comfortably. His daughters are at bedside. SKIN: Warm and dry. HEAD: Normocephalic. EYES: No scleral icterus. No injection or drainage. NECK: Supple, trachea midline. No JVD or lymphadenopathy. LYMPHATIC: No adenopathy. CARDIOVASCULAR: regular rate and rhythm, S1-S2 no obvious murmurs rubs gallops. RESPIRATORY: Prolonged expiratory phase, scattered basilar rhonchi. GASTROINTESTINAL: Abdomen soft, non-tender, nondistended. EXTREMITIES: No cyanosis, or edema. MUSCULOSKELETAL: Adequate muscle tone. NEUROLOGICAL: No obvious focal deficit. Awake, alert, and oriented x3. PSYCHIATRIC: Appropriate mood and affect; insight and judgment normal. 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 Status post combined chemoradiotherapy and he was also initiated on immunotherapy after completion of chemoradiotherapy last week. Now presenting with non-ST elevation [place], influenza A and hypoxic respiratory failure. He is currently in the ICU at the [facility] on a BiPAP. A heparin drip has been initiated along with dual antiplatelet therapy. Plan 1. Non-small cell carcinoma of the left lung: I have advised holding further consolidation immunotherapy, he will be on observation/surveillance alone. I will see him in my clinic in the upcoming weeks. He will undergo restaging CT imaging of the chest in 2-3 months. Anemia: Monitor CBC in the outpatient setting. Transfusion as needed. Clear for discharge from hematology/oncology standpoint. Josesito Fisher MD December 01, 2017 12:39
--- NOTE | 2017-12-01 14:23 | MD ---
cc: Ben Gaines MD DATE OF DISCHARGE: 12/01/2017 PULMONARY DISCHARGE HISTORY: Mr. Mayorga is a 77-year-old white male known to me with COPD, pulmonary fibrosis, lung cancer under therapy, who presented with increasing shortness of breath on 11/26/2017. HOSPITAL COURSE: He was admitted to the Intensive Care Unit, but did not require intubation, was treated with aerosolized bronchodilators, steroids and antibiotics and initially improved. However, his cardiac parameters came back abnormal. In fact, his BNP was 1500 and his troponin amada to 20 and he obviously had some myocardial injury. He was seen by cardiology, was not felt to be a candidate for any type of invasive therapies, so was treated medically and fortunately improved considerably. He also had an echocardiogram which revealed normal LV function with an EF of about 50%. He did have large left atrium and right atrium, moderate mitral regurgitation and an estimated pulmonary artery pressure of 53. Chest imaging revealed a stable interstitial prominence with no evidence of progression in lung cancer. The patient actually did quite well, stabilized and on the day of discharge was ambulatory on oxygen at 4 liters with O2 saturations in the 90% range. DISPOSITION: He will be discharged home on his aerosolized bronchodilators, a tapering course of prednisone. He completed a course of Tamiflu for influenza. I will see him back in the office. 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 MD MIGNON Judge/JACINTO , 02:05 PM , 02:21 PM
== END 2017-12-01 12:47 | disposition home or self-care (01) | DRG 189 ==
LOC: PHED 05:17 → PHEDA 06:00 → PHICU 10:17 → PH3B 11-29 20:55
PROVIDERS: ADMIT Hospitalist; ATTEND Hospitalist
PROC: 5A09457 Assistance with Respiratory Ventilation, 24-96 Consecutive Hours, Continuous Positive Airway Pressure (ICD-10-PCS; principal; 2017-11-26)
DX: J96.01 Acute respiratory failure with hypoxia (principal); I21.4 Non-ST elevation (NSTEMI) myocardial infarction; J10.00 Influenza due to other identified influenza virus with unspecified type of pneumonia; I50.21 Acute systolic (congestive) heart failure; C34.92 Malignant neoplasm of unspecified part of left bronchus or lung; J44.0 Chronic obstructive pulmonary disease with (acute) lower respiratory infection; I13.0 Hypertensive heart and chronic kidney disease with heart failure and stage 1 through stage 4 chronic kidney disease, or unspecified chronic kidney disease; J84.10 Pulmonary fibrosis, unspecified; Z99.81 Dependence on supplemental oxygen; D64.9 Anemia, unspecified; J44.1 Chronic obstructive pulmonary disease with (acute) exacerbation; N18.3 Chronic kidney disease, stage 3 (moderate); E66.9 Obesity, unspecified; I25.10 Atherosclerotic heart disease of native coronary artery without angina pectoris; E78.5 Hyperlipidemia, unspecified; F06.4 Anxiety disorder due to known physiological condition; G47.33 Obstructive sleep apnea (adult) (pediatric); I34.0 Nonrheumatic mitral (valve) insufficiency; H40.9 Unspecified glaucoma; H91.90 Unspecified hearing loss, unspecified ear; I25.2 Old myocardial infarction; I35.0 Nonrheumatic aortic (valve) stenosis; K21.9 Gastro-esophageal reflux disease without esophagitis; N40.0 Benign prostatic hyperplasia without lower urinary tract symptoms; R73.03 Prediabetes; I73.9 Peripheral vascular disease, unspecified; Z95.5 Presence of coronary angioplasty implant and graft; Z68.28 Body mass index [BMI] 28.0-28.9, adult; Z92.3 Personal history of irradiation; Z92.21 Personal history of antineoplastic chemotherapy; Z87.891 Personal history of nicotine dependence; Z79.02 Long term (current) use of antithrombotics/antiplatelets; Z79.82 Long term (current) use of aspirin
CPT/HCPCS: 36600; 71045; 80048; 80053; 81001; 82272; 82805; 82948; 83605; 83735; 83880; 84100; 84484; 85025; 85027; 85379; 85610; 85730; 87040; 87070; 87205; 87449; 87641; 87804; 93005; 93306; 93970; 94002; 94003; 94640; 94664; 96374; C9113; J0456; J0692; J1642; J1644; J1815; J1940; J2920; J7050; J7512; J7644